=== PATIENT | male | born 1975 | race Caucasian/White ===

== ENCOUNTER 2019-02-16 00:54 | Emergency (ER) | payer SELFPAY ==
[2019-02-16] MEDS: SODIUM CHLORIDE 0.9% 1,000 ML 1000 ML IV (01:01)
[2019-02-16 01:17] LABS: Add Manual Diff / Slide Review NO; Basophils Absolute Auto 100 /uL (0-100); Basophils Percent Auto 0.6 % (0-2); Eosinophils Absolute Auto 400 /uL (0-450); Eosinophils Percent Auto 2.8 % (2-4); Hemoglobin 16.1 g/dL (13.5-17.5); Lymphocytes Absolute Auto 7600 /uL (1100-4500); Lymphocytes Percent Auto 48.9 % (25-40); Mean Corpuscular Hemoglobin 34.1 PG (26-34); Mean Corpuscular Volume 97.4 fL (80-100); Monocytes Absolute Auto 1300 /uL (0-900); Monocytes Percent Auto 8.6 % (3-14); Neutrophils Absolute Auto 6100 /uL (1500-7000); Neutrophils Percent Auto 39.1 % (50-75); Platelet Count 294 X10^3/uL (150-400); Red Blood Cell Count 4.73 X10^6/uL (4.5-5.9); Red Cell Distribution Width 14.2 % (11.6-14.8); White Blood Cell Count 15.5 X10^3/uL (4.5-11.0)
--- NOTE | 2019-02-16 01:30 | ED_ITS ---
HPI - General Adult General Chief complaint: Altered Mental Status Stated complaint: ETOH, confusion Time Seen by Provider: 02/16/19 00:58 Source: EMS Mode of arrival: EMS Limitations: other (Intoxication) History of Present Illness HPI narrative: Patient is a 43-year-old male brought in by EMS after the police found the patient laying in the grass along the road. As reported by EMS that the patient had been drinking this evening. They stated that the report was that his friends dropped him off in that he late in the grass. There is no signs of trauma. Patient unable to provide any HPI review of systems Related Data Home Medications Medication Instructions Recorded Confirmed atorvastatin 40 mg PO HS #0 06/16/16 clopidogrel 75 mg PO QDAY #0 06/16/16 nicotine 14 mg TOPICAL QDAYP PRN #0 06/16/16 Previous Rx's Medication Instructions Recorded epinephrine [EpiPen 2-Mahendra] 0.3 mg IM X1 PRN #1 pkg 09/08/16 lisinopril 5 mg PO BID #60 tab 02/27/17 nitroglycerin 0.4 mg sublingual 0.4 mg SUBLINGUAL Q5M PRN #30 tab 09/03/17 tablet aspirin 81 mg chewable tablet 81 mg PO QDAY #90 tab 01/01/18 lisinopril 5 mg tablet 5 mg PO BID #180 tab 01/01/18 metoprolol tartrate 50 mg tablet 50 mg PO BID #180 tab 01/01/18 Allergies Allergy/AdvReac Type Severity Reaction Status Date / Time codeine [CODEINE] AdvReac Mild ITCHING Unverified 07/05/17 11:44 Review of Systems Review of Systems ROS Unobtainable: Unobtainable due to mental status/LOC Patient History Medical History Acute bronchitis (Inactive) Acute [place] (Inactive) Bilateral otitis media (Inactive) Coronary artery disease involving [place] coronary artery of [place] heart without angina pectoris (06/16/16) Cough due to bronchospasm (Inactive) Excessive daytime sleepiness (06/16/16) History of myocardial infarction (06/16/16) 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) Hypertension (Inactive) Nocturnal hypoxia (06/16/16) Family History (Updated 02/05/16 @ 00:00 by Conversion Provider) Grandmother Age: 54 Breast cancer Social History marital status: unknown Exam Initial Vital Signs Initial Vital Signs: Vital Signs Pulse Rate 96 H 02/16/19 03:14 Respiratory Rate 18 02/16/19 03:14 Blood Pressure 128/61 02/16/19 03:14 Pulse Oximetry 97 02/16/19 03:14 Const General: No acute distress Orientation: other (Intoxicated) Limitations: altered mental status (Intoxicated) HENMT Head: normal to inspection and normocephalic Resp Effort & Inspection: normal respiratory effort Auscultation: clear to auscultation bilaterally Cardio Rate: regular rate Rhythm: regular rhythm GI Inspection: non-distended Palpation: soft Other: Normal external male genitalia Skin Other: No signs of trauma, healed surgical scar midline ABS Neuro Other: Would not follow commands however does withdrawal to pain Extrem General: capillary refill normal Psych Appearance: well kempt Scores GCS [place] coma scale eye opening: None [place] coma scale verbal response: Sounds [place] coma scale motor response: Localising [place] coma scale total score: 8 Course Orders Ordered: ED Orders 02/16/19 01:00 Complete Blood Count AUTO DIFF Stat Comprehensive Metabolic Panel Stat Ethanol (ETOH) Stat Lipase Stat Discontinued Medications Sodium Chloride (Normal Saline 0.9%) 1,000 mls @ 1,000 mls/hr IV BOLUS ONE Stop: 02/16/19 01:58 Last Infusion: 02/16/19 02:25 Dose: 1,000 mls/hr Documented by: Admin: 02/16/19 01:01 Dose: 1,000 mls/hr Documented by: ABE Vital Signs Vital signs: Vital Signs - 8 hr 02/16/19 03:14 02/16/19 03:24 02/16/19 06:00 Temperature 97.9 F Pulse Rate 96 H 96 H 94 H Respiratory Rate 18 18 21 Blood Pressure 121/60 Blood Pressure [Left Arm] 128/61 110/56 L Pulse Oximetry 97 97 97 Medical Decision Making Lab Data Lab results reviewed: Yes I reviewed the patient's lab results. Result diagrams: 02/16/19 01:00 02/16/19 01:00 Labs: Lab Results 02/16/19 02/16/19 Range/Units 01:00 01:00 WBC 15.5 H (4.5-11.0) X10^3/uL RBC 4.73 (4.5-5.9) X10^6/uL Hgb 16.1 (13.5-17.5) g/dL Hct 46.0 (41-53) % MCV 97.4 (80-100) fL MCH 34.1 H (26-34) PG MCHC 35.0 (30-36) % RDW 14.2 (11.6-14.8) % Plt Count 294 (150-400) X10^3/uL Neut % (Auto) 39.1 L (50-75) % Lymph % (Auto) 48.9 H (25-40) % [place] % (Auto) 8.6 (3-14) % Eos % (Auto) 2.8 (2-4) % Baso % (Auto) 0.6 (0-2) % Neut # (Auto) 6100 (7422-1525) /uL Lymph # (Auto) 7600 H (1376-4303) /uL [place] # (Auto) 1300 H (0-900) /uL Eos # (Auto) 400 (0-450) /uL Baso # (Auto) 100 (0-100) /uL Sodium 144 (137-145) mmol/L Potassium 4.5 (3.4-5.1) mmol/L Chloride 107 (98-107) mmol/L Carbon Dioxide 23 (22-32) mmol/L BUN 13 (9-20) mg/dL Creatinine 0.80 (0.66-1.25) mg/dL Estimated GFR > 60.0 (>60) mL/min BUN/Creatinine Ratio 16.3 (6-22) Glucose 126 H (70-100) mg/dL Calcium 9.4 (8.4-10.2) mg/dL Total Bilirubin 0.6 (0.2-1.3) mg/dL AST 136 H (17-59) IU/L ALT 185 H (<50) IU/L Alkaline Phosphatase 86 (38-126) U/L Total Protein 7.7 (6.3-8.2) g/dL Albumin 4.4 (3.5-5.0) g/dL Globulin 3.3 (1.7-4.1) g/dL Albumin/Globulin Ratio 1.3 (1.0-2.8) Lipase 378 H (23-300) U/L Ethyl Alcohol 340 H ( - 10) mg/dL MDM Narrative Medical decision making narrative: Patient is maintaining his airway. There is no signs of trauma. Does have an elevated alcohol level. This is consistent with his history. Will hold on any radiologic studies for now. Does have a leukocytosis however this could be secondary to his drinking this evening. Patient was observed here in the emergency department until he woke up. He was then alert and oriented. States it does not remember how he got to the emergency department. He is not in any pain. He did admit to drinking alcohol last evening. Patient was able to ambulate without any problems. He was informed that he should not drive. He was discharged home in a cab. Discharge Plan Departure Patient Disposition: Home Clinical Impression: Alcoholic intoxication Qualifiers: Complication of substance-induced condition: with unspecified complication Qualified Code(s): F10.929 - Alcohol use, unspecified with intoxication, unspecified Discharge Date/Time: 02/16/19 06:26 Instructions: DI for Alcohol Abuse Activity Restrictions/Additional Instructions: No driving for the next 24 hours or in the future if you partake in intoxicating substances. Call your primary provider for follow-up. Return to the emergency department for any new or worsening symptoms Prescriptions: No Action atorvastatin 40 MG tablet 40 mg PO HS Qty: 0 RF: 0 clopidogrel 75 MG tablet 75 mg PO QDAY Qty: 0 RF: 0 nicotine 14 MG patch 24 hour 14 mg Topical QDAYP PRNQty: 0 RF: 0 epinephrine [EpiPen 2-Mahendra] 0.3 MG/0.3 ML auto-injector 0.3 mg IM X1 PRNQty: 1 RF: 2 lisinopril 5 MG tablet 5 mg PO BID Qty: 60 RF: 0 nitroglycerin [Nitrostat] 0.4 mg tablet, sublingual 0.4 mg Sublingual Q5M PRN (Reason: chest pain) Qty: 30 RF: 2 metoprolol tartrate 50 mg tablet 50 mg PO BID Qty: 180 RF: 0 lisinopril 5 mg tablet 5 mg PO BID Qty: 180 RF: 0 aspirin 81 mg tablet,chewable 81 mg PO QDAY Qty: 90 RF: 3 Referrals: Ulises Weaver MD [Primary Care Provider] -
[2019-02-16 01:34] LABS: Alanine Aminotransferase 185 IU/L (<50); Albumin 4.4 g/dL (3.5-5.0); Albumin Globulin Ratio 1.3 (1.0-2.8); Alkaline Phosphatase 86 U/L (38-126); BUN Creatinine Ratio 16.3 (6-22); Bilirubin Total 0.6 mg/dL (0.2-1.3); Blood Urea Nitrogen 13 mg/dL (9-20); Calcium 9.4 mg/dL (8.4-10.2); Carbon Dioxide 23 mmol/L (22-32); Chloride 107 mmol/L (98-107); Estimated Glomerular Filt Rate > 60.0 mL/min (>60); Globulin 3.3 g/dL (1.7-4.1); Glucose 126 mg/dL (70-100); HEMOLYSIS 56 (0-50); Lipase 378 U/L (23-300); Sodium 144 mmol/L (137-145); Total Protein 7.7 g/dL (6.3-8.2)
[2019-02-16 01:35] LABS: Potassium 4.5 mmol/L (3.4-5.1)
[2019-02-16 01:36] LABS: Aspartate Aminotransferase 136 IU/L (17-59)
[2019-02-16 01:42] LABS: Ethanol (ETOH) 340 mg/dL
[2019-02-16 03:14] VITALS: BP 128/61; PULSE 96; RESP 18; O2SAT 97
[2019-02-16 03:24] VITALS: BP 121/60; PULSE 96; RESP 18; TEMP 36.6; O2SAT 97
[2019-02-16 06:00] VITALS: BP 110/56; PULSE 94; RESP 21; O2SAT 97
== END 2019-02-16 06:26 | disposition home or self-care (01) ==
PROVIDERS: Emergency Provider Emergency Medicine; PCP Family Medicine
DX: F10.929 Alcohol use, unspecified with intoxication, unspecified (principal)
CPT/HCPCS: 36415; 80053; 80320; 83690; 85025; 96360; 99283; 99284

== ENCOUNTER 2019-09-04 23:19 | Emergency (ER) | payer OTHER, SELFPAY ==
[2019-09-04 23:15] VITALS: BP 90/53; PULSE 97; RESP 26; TEMP 36; O2SAT 88; BMI 45.6
--- NOTE | 2019-09-04 23:35 | ED.GENADULT ---
HPI - General Adult General Chief complaint: Toxicology Problem Stated complaint: ETOH Time Seen by Provider: 09/04/19 23:35 History of Present Illness HPI narrative: 44-year-old gentleman with a history of alcohol use disorder, STEMI in 2017 with stent placement, hyperlipidemia, hypertension presents with what he believes is acute alcohol withdrawal. Typically drinks a 5th of hard liquor every other day. His last drink was 4 days ago. He has no tremor, no head fullness, light or sound sensitivity, no hallucinations no abdominal pain describes no cough but describe significant chills with dripping sweats. No chest pain, shortness of breath, mild loose stools and no significant vomiting. He has no headache, no neck pain and no complaints of skin changes rashes or abscess. No dysuria or flank pain. On initial presentation he is tachycardic and hypotensive with the CIWA score of 0. He looks acutely ill and is quite pale and does not appear to be in acute alcohol withdrawal or delirium tremens. With no fever or obvious source of infection, I am concerned for sepsis however will wait to be in to see blood back before beginning antibiotics. Fluid resuscitation is initiated. He is complaining of no nausea or pain. Related Data Home Medications Medication Instructions Recorded Confirmed atorvastatin 40 mg PO HS #0 06/16/16 clopidogrel 75 mg PO QDAY #0 06/16/16 nicotine 14 mg TOPICAL QDAYP PRN #0 06/16/16 Previous Rx's Medication Instructions Recorded epinephrine [EpiPen 2-Mahendra] 0.3 mg IM X1 PRN #1 pkg 09/08/16 lisinopril 5 mg PO BID #60 tab 02/27/17 nitroglycerin 0.4 mg sublingual 0.4 mg SUBLINGUAL Q5M PRN #30 tab 09/03/17 tablet aspirin 81 mg chewable tablet 81 mg PO QDAY #90 tab 01/01/18 lisinopril 5 mg tablet 5 mg PO BID #180 tab 01/01/18 metoprolol tartrate 50 mg tablet 50 mg PO BID #180 tab 01/01/18 Allergies Allergy/AdvReac Type Severity Reaction Status Date / Time codeine [CODEINE] AdvReac Mild ITCHING Unverified 07/05/17 11:44 Review of Systems Review of Systems ROS Unobtainable: All systems reviewed & are unremarkable except as noted in HPI and below Patient History Medical History (Updated 09/05/19 @ 04:29 by Amada Garcia MD) Acute bronchitis (Inactive) Acute [place] (Inactive) Alcohol use disorder (Acute) Bilateral otitis media (Inactive) Coronary artery disease involving [place] coronary artery of [place] heart without angina pectoris (06/16/16) Cough due to bronchospasm (Inactive) Excessive daytime sleepiness (06/16/16) History of myocardial infarction (06/16/16) 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) Hypertension (Inactive) Nocturnal hypoxia (06/16/16) Family History (Updated 02/05/16 @ 00:00 by Conversion Provider) Grandmother Age: 54 Breast cancer Social History marital status: unknown Smoking Status: Current every day smoker Exam Narrative Exam Narrative: General: Ill-appearing gentleman, pale. Able to give a complete and coherent history. HEENT: Moist mucous membranes, normal sclera with reactive pupils, pale lips Neck: No JVD, supple Respiratory: Lungs are clear to auscultation, no wheezing no rales no rhonchi. Full and symmetrical air movement Cardiac: Tachycardic but regular, no murmurs no bruits Abdomen: Soft nontender good bowel tones, no flank pain Skin: Warm and dry, no rashes, no abscesses, no erythema Neurologic: Grossly neurologically intact with no obvious asymmetries or abnormalities, no tremor, no visual or auditory hallucination Extremities: No trauma, well perfused Psych: Cooperative, appropriate insight and affect Initial Vital Signs Initial Vital Signs: Vital Signs Temperature 96.8 F L 09/04/19 23:15 Pulse Rate 97 H 09/04/19 23:15 Respiratory Rate 26 H 09/04/19 23:15 Blood Pressure 90/53 L 09/04/19 23:15 Pulse Oximetry 88 L 09/04/19 23:15 Procedures Central Line Placement Right IJ: Time Out Performed: Yes Patient Placed on Monitor/Pulse Ox: Yes Prep: mask, gown and gloves Central Line Prep: Chlorhexidine scrub Local Anesthetic: lidocaine 1% Amount of anesthesia used (mL): 5 Ultrasound Used for Placement: Yes Central Line Lumen Inserted: triple Post Procedure: sutured in place, good blood return and all ports aspirated, flushed, capped Post Procedure X-Ray: tip of catheter in good position and no pneumothorax seen Patient Tolerated Procedure: Well Complications: none Course Orders Ordered: ED Orders 09/05/19 XR chest 1V Stat 09/05/19 00:07 XR chest 1V Stat Blood Culture Stat Urinalysis and Microscopic Stat EKG-12 Lead Stat 09/05/19 00:25 Complete Blood Count AUTO DIFF Stat Comprehensive Metabolic Panel Stat D Dimer Stat Lactate (Lactic Acid) Stat Lipase Stat Magnesium Stat Procalcitonin Stat Troponin I Stat Type and Screen Stat 09/05/19 02:12 CT angio chest PE protocol Stat 09/05/19 02:30 EKG-12 Lead Stat 09/05/19 03:10 D Dimer Stat Troponin I Stat Heparin Sodium/Dextrose (Heparin Drip) 25,000 unit in 500 mls @ 20 mls/hr IV CONT BIA; Protocol Last Admin: 09/05/19 02:06 Dose: 1,000 units/hr, 20 mls/hr Documented by: SAVANNAH Discontinued Medications Aspirin (Aspirin Chew) 324 mg PO NOW ONE Stop: 09/05/19 01:35 Last Admin: 09/05/19 02:02 Dose: 324 mg Documented by: SAVANNAH Heparin Sodium (Porcine) (Heparin) 7,500 unit IV NOW ONE Stop: 09/05/19 01:35 Last Admin: 09/05/19 02:05 Dose: 7,500 unit Documented by: SAVANNAH Sodium Chloride (Normal Saline 0.9%) 1,000 mls @ 1,000 mls/hr IV BOLUS ONE Stop: 09/05/19 01:05 Last Admin: 09/05/19 02:15 Dose: 1,000 mls/hr Documented by: SAVANNAH Sodium Chloride (Normal Saline 0.9%) 1,000 mls @ 1,000 mls/hr IV BOLUS ONE Stop: 09/05/19 01:06 Last Admin: 09/05/19 00:12 Dose: 1,000 mls/hr Documented by: EVELIN Piperacillin/Tazobactam/Dextrose (Zosyn) 3.375 gm in 50 mls @ 100 mls/hr IV NOW ONE Stop: 09/05/19 02:05 Magnesium Sulfate (Magnesium Sulfate) 2 gm in 50 mls @ 25 mls/hr IV NOW ONE Stop: 09/05/19 03:36 Last Admin: 09/05/19 02:03 Dose: 25 mls/hr Documented by: SAVANNAH Cosigned by: MMCFARL Thiamine HCl (Vitamin B-1) 100 mg IV NOW ONE Stop: 09/05/19 01:38 Last Admin: 09/05/19 02:14 Dose: 100 mg Documented by: SAVANNAH Vital Signs Vital signs: Vital Signs - 8 hr 09/04/19 23:15 09/04/19 23:48 09/05/19 00:55 Temperature 96.8 F L Pulse Rate 97 H 97 H 101 H Respiratory Rate 26 H 25 H 25 H Blood Pressure 90/53 L Blood Pressure [Left Arm] 90/53 L 95/61 Pulse Oximetry 88 L 91 92 09/05/19 01:36 09/05/19 02:25 09/05/19 02:47 Temperature Pulse Rate 103 H 102 H 98 H Respiratory Rate 26 H 25 H 26 H Blood Pressure Blood Pressure [Left Arm] 109/66 104/61 95/64 Pulse Oximetry 94 93 94 09/05/19 03:31 09/05/19 04:01 Temperature Pulse Rate 100 H 96 H Respiratory Rate 25 H Blood Pressure Blood Pressure [Left Arm] 94/67 96/51 L Pulse Oximetry 94 96 Medical Decision Making Medical Records Medical records reviewed: Yes I reviewed the patient's medical records. Lab Data Lab results reviewed: Yes I reviewed the patient's lab results. Lab results narrative: Leukocytosis, renal insufficiency, elevated lactic acid at 2.5 and elevated LFTs troponin slightly elevated at 0.054 D dimer returns positve Result diagrams: 09/05/19 00:25 09/05/19 00:25 Labs: Lab Results 09/05/19 09/05/19 09/05/19 Range/Units 00:25 00:25 00:25 WBC 14.9 H (4.5-11.0) X10^3/uL RBC 4.44 L (4.5-5.9) X10^6/uL Hgb 14.9 (13.5-17.5) g/dL Hct 43.5 (41-53) % MCV 98.0 (80-100) fL MCH 33.5 (26-34) PG MCHC 34.2 (30-36) % RDW 15.0 H (11.6-14.8) % Plt Count 181 (150-400) X10^3/uL Neut % (Auto) 71.7 (50-75) % Lymph % (Auto) 20.8 L (25-40) % [place] % (Auto) 6.8 (3-14) % Eos % (Auto) 0.4 L (2-4) % Baso % (Auto) 0.3 (0-2) % Neut # (Auto) 31979 H (9119-7956) /uL Lymph # (Auto) 3100 (5856-7464) /uL [place] # (Auto) 1000 H (0-900) /uL Eos # (Auto) 100 (0-450) /uL Baso # (Auto) 0 (0-100) /uL D-Dimer (<230) ng/mL Sodium 136 L (137-145) mmol/L Potassium 4.2 (3.4-5.1) mmol/L Chloride 104 (98-107) mmol/L Carbon Dioxide 20 L (22-32) mmol/L BUN 13 (9-20) mg/dL Creatinine 1.59 H (0.66-1.25) mg/dL Estimated GFR 47.5 L (>60) mL/min BUN/Creatinine Ratio 8.2 (6-22) Glucose 171 H (70-100) mg/dL Lactate (0.7-2.1) mmol/L Calcium 9.4 (8.4-10.2) mg/dL Magnesium 1.5 L (1.6-2.3) mg/dL Total Bilirubin 1.3 (0.2-1.3) mg/dL AST 102 H (17-59) IU/L ALT 111 H (<50) IU/L Alkaline Phosphatase 57 (38-126) U/L Troponin I 0.054 H (0.01-0.034) ng/mL Total Protein 6.8 (6.3-8.2) g/dL Albumin 3.5 (3.5-5.0) g/dL Globulin 3.3 (1.7-4.1) g/dL Albumin/Globulin Ratio 1.1 (1.0-2.8) Lipase 141 (23-300) U/L Procalcitonin 0.15 (<0.5) ng/mL Blood Type Antibody Screen 09/05/19 09/05/19 09/05/19 Range/Units 00:25 00:25 00:25 WBC (4.5-11.0) X10^3/uL RBC (4.5-5.9) X10^6/uL Hgb (13.5-17.5) g/dL Hct (41-53) % MCV (80-100) fL MCH (26-34) PG MCHC (30-36) % RDW (11.6-14.8) % Plt Count (150-400) X10^3/uL Neut % (Auto) (50-75) % Lymph % (Auto) (25-40) % [place] % (Auto) (3-14) % Eos % (Auto) (2-4) % Baso % (Auto) (0-2) % Neut # (Auto) (5575-4966) /uL Lymph # (Auto) (8878-2791) /uL [place] # (Auto) (0-900) /uL Eos # (Auto) (0-450) /uL Baso # (Auto) (0-100) /uL D-Dimer 923 H (<230) ng/mL Sodium (137-145) mmol/L Potassium (3.4-5.1) mmol/L Chloride (98-107) mmol/L Carbon Dioxide (22-32) mmol/L BUN (9-20) mg/dL Creatinine (0.66-1.25) mg/dL Estimated GFR (>60) mL/min BUN/Creatinine Ratio (6-22) Glucose (70-100) mg/dL Lactate 2.5 H (0.7-2.1) mmol/L Calcium (8.4-10.2) mg/dL Magnesium (1.6-2.3) mg/dL Total Bilirubin (0.2-1.3) mg/dL AST (17-59) IU/L ALT (<50) IU/L Alkaline Phosphatase (38-126) U/L Troponin I (0.01-0.034) ng/mL Total Protein (6.3-8.2) g/dL Albumin (3.5-5.0) g/dL Globulin (1.7-4.1) g/dL Albumin/Globulin Ratio (1.0-2.8) Lipase (23-300) U/L Procalcitonin (<0.5) ng/mL Blood Type O Positive Antibody Screen Negative 09/05/19 09/05/19 09/05/19 Range/Units 03:10 03:10 03:10 WBC (4.5-11.0) X10^3/uL RBC (4.5-5.9) X10^6/uL Hgb (13.5-17.5) g/dL Hct (41-53) % MCV (80-100) fL MCH (26-34) PG MCHC (30-36) % RDW (11.6-14.8) % Plt Count (150-400) X10^3/uL Neut % (Auto) (50-75) % Lymph % (Auto) (25-40) % [place] % (Auto) (3-14) % Eos % (Auto) (2-4) % Baso % (Auto) (0-2) % Neut # (Auto) (7591-5228) /uL Lymph # (Auto) (5064-0362) /uL [place] # (Auto) (0-900) /uL Eos # (Auto) (0-450) /uL Baso # (Auto) (0-100) /uL D-Dimer 1452 H (<230) ng/mL Sodium (137-145) mmol/L Potassium (3.4-5.1) mmol/L Chloride (98-107) mmol/L Carbon Dioxide (22-32) mmol/L BUN (9-20) mg/dL Creatinine (0.66-1.25) mg/dL Estimated GFR (>60) mL/min BUN/Creatinine Ratio (6-22) Glucose (70-100) mg/dL Lactate 3.4 H (0.7-2.1) mmol/L Calcium (8.4-10.2) mg/dL Magnesium (1.6-2.3) mg/dL Total Bilirubin (0.2-1.3) mg/dL AST (17-59) IU/L ALT (<50) IU/L Alkaline Phosphatase (38-126) U/L Troponin I 0.066 H (0.01-0.034) ng/mL Total Protein (6.3-8.2) g/dL Albumin (3.5-5.0) g/dL Globulin (1.7-4.1) g/dL Albumin/Globulin Ratio (1.0-2.8) Lipase (23-300) U/L Procalcitonin (<0.5) ng/mL Blood Type Antibody Screen Imaging Data Chest x-ray: Radiologist's Impression: No acute infiltrates, slightly generous cardiac silhouette, no effusions, normal mediastinum, no trauma ECG Data Attestation: I personally reviewed and interpreted this ECG as follows: Interpretation: Sinus rhythm at a rate of 99 Rightward axis with normal intervals ST depression inferiorly and nonspecific ST T wave changes anteriorly MDM Narrative Medical decision making narrative: 44-year-old gentleman who a stents a believe presents with acute alcohol withdrawal however clinical exam and labs are not supporting that as his only diagnosis. He states that he has not had fevers but has had soaking sweats with chills and reports that he has been unable to eat or drink. It is possible that he simply significantly dehydrated causing the slight bump in creatinine as well as hypertension and tachycardia. LFTs are elevated but consistent with prior numbers and consistent with his alcohol use disorder. No evidence of pancreatitis. IV Thiamine given. On arrival he was mildly hypoxic but is responding nicely to oxygen per nasal cannula. Blood pressure and heart rate responding to initial fluid resuscitation. Given the hypotension, tachycardia, hypoxia, leukocytosis and increasing lactic acid will add empiric antibiotics in the form of Zosyn with an unknown source of infection (procalcitonin is low arguing against infectious etiology). Does not appear to be a meningitis, pneumonia, intra-abdominal infection or cellulitis. Still waiting for urinalysis Troponin is elevated at 0.054, no chest pain or dyspnea. Possibility of an alcoholic cardiomyopathy and/or NSTEMI due to alcohol withdrawl over last few days. With the elevated troponin and EKG with ST depression inferiorly with nonspecific ST changes anteriorly will add aspirin and heparin drip. Will need troponins trended and echocardiogram. He did have a STEMI in 2017 with stent placement and treatment at [facility] 1:55am Spoke with marina sales and service supervisor at [facility]. PCU bed is available. Will talk with hospitalist. Currently patient continues to improve with fluid resuscitation, blood pressure up to 109/66, much better color. No chest pain. Dr Lomax requests consultation with cardiology and review of EKG prior to accepting patient. 2:00 d- dimer returns positive at 923. PE study is ordered. Pt remains on cardiac protocol heparin. Repeat trop and EKG at 230 340 troponin increasing, lactic acid increasing after 3 L, has pullled out multiple IVs due to restlessness. CT reveals multiple subsegmental pulmonary emboli with likely Will place central line. MAP [address] David , cardiology EKG electronical transmitted for his reveiw. Agrees with concern for ischemia without acute infarct/STEMI. Record review from him: Inferior STEMI in 2017. Will need Echo with hospital stay. 450 Dr Lomax. Accepts transfer. Will not have nursing staff available until 630am. Will return call with room number Additional Information: Case in summary 44-year-old gentleman presents initially to the emergency room complaining of feeling unwell presumably secondary to acute alcohol withdrawal, last drink 4 days ago. Initially hypotensive tachycardic with no signs of alcohol withdrawal. Initial labs returning with elevated lactate and elevated white blood cell count and increased creatinine. LFTs increased but less than previously presumably secondary to his alcohol intake.. Fluid resuscitation and antibiotics started with initial presumed diagnosis of sepsis unknown source. Labs then revealed elevated troponin with an EKG showing some minor inferior ST depression and flipped T-waves anteriorly without an acute STEMI. Aspirin given and heparin started. Continued fluid resuscitation with systolic blood pressures in the low 90s, maps in the mid 60s. D-dimer then returns elevated and CT scan of the chest reveals multiple subsegmental bilateral pulmonary emboli likely with pulmonary infarcts. Heparin protocol changed from cardiac to pulmonary embolism rates. Central line is placed for better venous access. Patient continues to mentate appropriately without signs of acute alcohol withdrawal. Repeat lab work at this point reveals lactate increasing despite aggressive fluid resuscitation. May be secondary to the pulmonary infarcts. Antibiotics are continuing. Troponin is also increasing 2.0 6 6. Case is reviewed with cardiology who recommends continued care and echo to be reviewed tomorrow. Patient remains in stable but guarded position and is safe for ACLS transfer to [facility] when CCU bed becomes available within the next 1-2 hours. Critical Care Time Critical Care Time Critical Care Time: Yes Total Critical Care Time: 42 Attestation: Critical care time is separate from other billable procedures. This critical care time includes consultation with family and other consulting doctors, review of records, and interpretation of data from labs, EKGs and imaging as well as managements of cardiovascular collapse, pulmonary emboli, renal dysfunction. Discharge Plan Departure Patient Disposition: [facility] Clinical Impression: Pulmonary embolism and infarction, Non-ST elevation (NSTEMI) myocardial infarction, Alcohol use disorder, Hypomagnesemia, Acute renal insufficiency, Acute hypotension Prescriptions: No Action atorvastatin 40 MG tablet 40 mg PO HS Qty: 0 RF: 0 clopidogrel 75 MG tablet 75 mg PO QDAY Qty: 0 RF: 0 nicotine 14 MG patch 24 hour 14 mg Topical QDAYP PRNQty: 0 RF: 0 epinephrine [EpiPen 2-Mahendra] 0.3 MG/0.3 ML auto-injector 0.3 mg IM X1 PRNQty: 1 RF: 2 lisinopril 5 MG tablet 5 mg PO BID Qty: 60 RF: 0 nitroglycerin [Nitrostat] 0.4 mg tablet, sublingual 0.4 mg Sublingual Q5M PRN (Reason: chest pain) Qty: 30 RF: 2 metoprolol tartrate 50 mg tablet 50 mg PO BID Qty: 180 RF: 0 lisinopril 5 mg tablet 5 mg PO BID Qty: 180 RF: 0 aspirin 81 mg tablet,chewable 81 mg PO QDAY Qty: 90 RF: 3 Referrals: Ulises Weaver MD [Primary Care Provider] -
--- NOTE | 2019-09-04 23:45 | PC.NURSE ---
EMS IV infiltrated when changing pt. I removed IV and started a new line.
[2019-09-04 23:48] VITALS: BP 90/53; PULSE 97; RESP 25; O2SAT 91
[2019-09-05] VITALS (9 sets, daily range): BP systolic 92–109; BP diastolic 50–67; PULSE 96–103; RESP 25–28; O2SAT 90–96
--- NOTE | 2019-09-05 | DI.RAD.S_ITS ---
PROCEDURE: XR CHEST 1V INDICATIONS: CENTRAL LINE PLACEMENT TECHNIQUE: One view of the chest was acquired. COMPARISON: [facility], , XR CHEST 1V, 09/05/2019, 0:31. [facility], , CHEST 1 VIEW, 02/27/2017, 7:48. FINDINGS: Surgical changes and devices: Right internal jugular central line has been placed without pneumothorax, with tip in the distal SVC.. Lungs and pleura: Lungs are difficult to accurately assess due to reduced inspiratory volume but no definite pneumonia is found.. No pleural effusions or pneumothorax. Mediastinum: Mediastinal contours appear normal. Heart size is normal. Bones and chest wall: No suspicious bony lesions. Overlying soft tissues appear unremarkable. IMPRESSION: Reduced inspiratory volume, no pneumothorax, central line placement with tip in the distal SVC. Dictated by: Isai Foster M.D. on 09/05/2019 at 8:53 Approved by: Isai Foster M.D. on 09/05/2019 at 8:54
--- NOTE | 2019-09-05 00:07 | DI.RAD.S_ITS ---
PROCEDURE: XR CHEST 1V INDICATIONS: hypotension TECHNIQUE: One view of the chest was acquired. COMPARISON: [facility], CHEST 1 VIEW, 02/27/2017, 7:48. [facility], CHEST 2 VIEW, 06/01/2015, 13:54. FINDINGS: Surgical changes and devices: None. Lungs and pleura: Lungs are clearconsidered reduced inspiration. No pleural effusions or pneumothorax. Mediastinum: Mediastinal contours appear normal. Heart size is normal. Bones and chest wall: No suspicious bony lesions. Overlying soft tissues appear unremarkable. IMPRESSION: Reduced inspiration. Dictated by: Isai Foster M.D. on 09/05/2019 at 8:16 Approved by: Isai Foster M.D. on 09/05/2019 at 8:17
[2019-09-05] MEDS: SODIUM CHLORIDE 0.9% 1,000 ML 1000 ML IV ×2 (00:12→02:15)
[2019-09-05 01:01] LABS: Add Manual Diff / Slide Review NO; Basophils Absolute Auto 0 /uL (0-100); Basophils Percent Auto 0.3 % (0-2); Eosinophils Absolute Auto 100 /uL (0-450); Eosinophils Percent Auto 0.4 % (2-4); Hematocrit 43.5 % (41-53); Hemoglobin 14.9 g/dL (13.5-17.5); Lymphocytes Absolute Auto 3100 /uL (1100-4500); Lymphocytes Percent Auto 20.8 % (25-40); Mean Corpuscular HGB Conc 34.2 % (30-36); Mean Corpuscular Hemoglobin 33.5 PG (26-34); Monocytes Absolute Auto 1000 /uL (0-900); Monocytes Percent Auto 6.8 % (3-14); Neutrophils Absolute Auto 10700 /uL (1500-7000); Neutrophils Percent Auto 71.7 % (50-75); Platelet Count 181 X10^3/uL (150-400); Red Blood Cell Count 4.44 X10^6/uL (4.5-5.9); White Blood Cell Count 14.9 X10^3/uL (4.5-11.0)
[2019-09-05 01:06] LABS: Lactate (Lactic Acid) 2.5 mmol/L (0.7-2.1)
[2019-09-05 01:12] LABS: Alanine Aminotransferase 111 IU/L (<50); Albumin 3.5 g/dL (3.5-5.0); Albumin Globulin Ratio 1.1 (1.0-2.8); Alkaline Phosphatase 57 U/L (38-126); Aspartate Aminotransferase 102 IU/L (17-59); BUN Creatinine Ratio 8.2 (6-22); Bilirubin Total 1.3 mg/dL (0.2-1.3); Blood Urea Nitrogen 13 mg/dL (9-20); Calcium 9.4 mg/dL (8.4-10.2); Carbon Dioxide 20 mmol/L (22-32); Chloride 104 mmol/L (98-107); Estimated Glomerular Filt Rate 47.5 mL/min (>60); Globulin 3.3 g/dL (1.7-4.1); Glucose 171 mg/dL (70-100); HEMOLYSIS < 15 (0-50); Lipase 141 U/L (23-300); Magnesium 1.5 mg/dL (1.6-2.3); Potassium 4.2 mmol/L (3.4-5.1); Sodium 136 mmol/L (137-145); Total Protein 6.8 g/dL (6.3-8.2)
[2019-09-05 01:23] LABS: Troponin I 0.054 ng/mL (0.01-0.034)
[2019-09-05 01:28] LABS: Procalcitonin 0.15 ng/mL (<0.5)
[2019-09-05] MEDS: ASPIRIN 81 MG CHEW TAB 324 MG PO (02:02)
[2019-09-05 02:03] LABS: D Dimer 923 ng/mL (<230)
[2019-09-05] MEDS: MAGNESIUM SULFATE 2 GM/50 ML PIGGYBACK IV (02:03)
[2019-09-05] MEDS: HEPARIN 5,000 UNIT/ML VIAL 7500 UNIT IV (02:05)
[2019-09-05] MEDS: HEPARIN DRIP 25,000 UNIT/500 ML IV.SOLN 20 UNIT IV (02:06)
--- NOTE | 2019-09-05 02:12 | DI.CT.S_ITS ---
PROCEDURE: CT ANGIO CHEST PE PROTOCOL INDICATIONS: elevated d dimer TECHNIQUE: After the administration of intravenous contrast, 2 mm thick sections acquired from the pulmonary apices to the posterior costophrenic angles. 3-dimensional maximum intensity projection (MIP) coronal and sagittal reformats were then acquired through the thorax. For radiation dose reduction, the following was used: automated exposure control, adjustment of mA and/or kV according to patient size. COMPARISON: None. FINDINGS: Image quality: Excellent. Pulmonary arteries: Pulmonary arteries are mildly prominent in size centrally, and demonstrate definite bilateral intraluminal filling defects there both occlusive and nonocclusive diagnostic of central pulmonary embolism. These are scattered within the upper and lower lobe pulmonary arteries, and associated with mild patchy alveolar airspace disease best seen at each lung base, left greater than right, potentially a manifestation of peripheral pulmonary infarctions or ischemic injury. Lungs and pleura: Lungs are free of mass. No pleural effusions or pneumothorax. Central and peripheral airways are patent. Mediastinum: Heart size is normal, without pericardial effusion. No mediastinal or hilar adenopathy. Thoracic aorta is normal in caliber and enhancement. Esophagus is normal in caliber, without hiatal hernia. Bones and chest wall: No suspicious bony lesions. Ribs and thoracic spine appear intact throughout. Thyroid gland appears normal where well seen. No axillary or supraclavicular adenopathy. Abdomen: Visualized upper abdominal solid organs appear normal in the early arterial phase of enhancement except for absence of the spleen in the setting of what appears to be old left-sided lower rib fractures. This may indicate prior splenectomy for trauma.. IMPRESSION: Bilateral pulmonary emboli are present, segmental and subsegmental, occlusive and nonocclusive (the majority of which are nonocclusive). Right heart enlargement is not associated. Central pulmonary arteries are mildly prominent in size. A small degree of peripheral patchy alveolar airspace disease is present likely reflecting sequela of focal ischemic injury to the lung parenchyma from far peripheral pulmonary emboli in this clinical circumstance. Prior splenectomy, likely from trauma given the pattern of what appears to be old healed left lower rib fractures posteriorly. Note: These findings are concordant with the preliminary interpretation. Dictated by: Isai Foster M.D. on 09/05/2019 at 8:33 Approved by: Isai Foster M.D. on 09/05/2019 at 8:46
[2019-09-05] MEDS: THIAMINE 200 MG/2 ML VIAL 100 MG IV (02:14)
[2019-09-05 02:56] LABS: Reflexed Lactate in 2 Hours Y
[2019-09-05 03:33] LABS: Lactate 2HR (Lactic Acid Rflx) 3.4 mmol/L (0.7-2.1)
[2019-09-05 03:39] LABS: D Dimer 1452 ng/mL (<230)
[2019-09-05 03:45] LABS: Troponin I 0.066 ng/mL (0.01-0.034)
--- NOTE | 2019-09-05 04:30 | PC.NURSE ---
After moving him to room #1,DR Garcia inserted right subclavian central line with sterile technique,he tolerated it well.
[2019-09-05 05:10] LABS: INR 1.3 (0.9-1.3); Prothrombin Time 15.2 SECONDS (10.1-12.7)
[2019-09-05] MEDS: PIPERACILLIN-TAZO 3.375 GM/50 ML FROZ.PIGGY IV (05:14)
[2019-09-05 05:44] LABS: PTT Partial Thromboplastin Tim 115 SECONDS (26.4-36.2)
--- NOTE | 2019-09-05 06:21 | PC.NURSE ---
He left to [facility] pain free with his heparin drip infusing at 900 ml per hour per DR Newberry verbal order.
--- NOTE | 2019-10-01 18:48 | PC.NURSE ---
on 09/05/19 zosyn 50 ml infused at 0205,heparin gtt infused 85 ml and the rest was infusing when transferred at 20 ml per hour and 2 liters normal saline infused on at 0105 and one at 0330.
--- NOTE | 2019-10-01 21:41 | PC.NURSE ---
On 09/05/2019 2 grams mag sulfate in 50 ml infused at 0420.
== END 2019-09-05 06:00 | disposition short-term general hospital (02) ==
PROVIDERS: Emergency Provider Emergency Medicine; PCP Family Medicine
DX: I21.4 Non-ST elevation (NSTEMI) myocardial infarction (principal); I26.99 Other pulmonary embolism without acute cor pulmonale; N28.9 Disorder of kidney and ureter, unspecified; E83.42 Hypomagnesemia; I95.9 Hypotension, unspecified; F10.10 Alcohol abuse, uncomplicated; Z95.5 Presence of coronary angioplasty implant and graft; E78.5 Hyperlipidemia, unspecified; I10 Essential (primary) hypertension; R79.89 Other specified abnormal findings of blood chemistry; R00.0 Tachycardia, unspecified; R09.02 Hypoxemia
CPT/HCPCS: 36415; 36573; 71045; 71275; 80053; 83605; 83690; 83735; 84145; 84484; 85025; 85379; 85610; 85730; 86850; 86900; 86901; 93005; 96361; 96365; 96366; 96368; 96375; 99285; 99291; 99292; J1644; J2543; Q9967

== ENCOUNTER 2020-07-27 16:51 | Emergency (ER) | payer OTHER, MEDICAID, SELFPAY ==
[2020-07-27 17:00] VITALS: BP 200/107; PULSE 89; RESP 20; TEMP 37.4; O2SAT 99
--- NOTE | 2020-07-27 17:15 | ED_ITS ---
HPI - Extremity Injury (Lower) General Chief Complaint: Extremity Injury, Lower Stated Complaint: LEFT KNEE SWELLING TOWARDS FOOT Time Seen by Provider: 07/27/20 17:15 Source: patient Mode of arrival: Ambulatory Limitations: no limitations History of Present Illness HPI Narrative: This is a 45-year-old male comes in with complaint of left knee swelling after falling directly onto his left don. Patient was riding on his boat and fell directly onto a 2 in metal bar with his knee flexed. Patient states he developed bruising over the next day. Patient states he has been able to ambulate without much issue. He states that he had significant swelling initially which is improved. It sometimes increases during the day when he is walking around lab but always improves in the evening. Patient has noted bruisi ng which has started to extend down towards the foot. Patient denies any numbness, tingling or weakness. He denies any other injuries. He is on Eliquis for prior pulmonary emboli. Patient also takes medication for hypertension, dyslipidemia and prior NC. patient states they are still working on adjusting his blood pressure medications. Related Data Home Medications Medication Instructions Recorded Confirmed atorvastatin 40 mg PO HS #0 06/16/16 clopidogrel 75 mg PO QDAY #0 06/16/16 nicotine 14 mg TOPICAL QDAYP PRN #0 06/16/16 Previous Rx's Medication Instructions Recorded epinephrine [EpiPen 2-Mahendra] 0.3 mg IM X1 PRN #1 pkg 09/08/16 lisinopril 5 mg PO BID #60 tab 02/27/17 nitroglycerin 0.4 mg sublingual 0.4 mg SUBLINGUAL Q5M PRN #30 tab 09/03/17 tablet aspirin 81 mg chewable tablet 81 mg PO QDAY #90 tab 01/01/18 lisinopril 5 mg tablet 5 mg PO BID #180 tab 01/01/18 metoprolol tartrate 50 mg tablet 50 mg PO BID #180 tab 01/01/18 cephalexin 500 mg PO Q6H 7 Days #28 cap 07/27/20 Allergies Allergy/AdvReac Type Severity Reaction Status Date / Time codeine [CODEINE] AdvReac Mild ITCHING Unverified 07/05/17 11:44 Review of Systems Review of Systems ROS Unobtainable: All systems reviewed & are unremarkable except as noted in HPI and below Patient History Medical History Acute bronchitis Acute NC Alcohol use disorder Bilateral otitis media Coronary artery disease involving [place] coronary artery of [place] heart without angina pectoris (06/16/16) Cough due to bronchospasm Excessive daytime sleepiness (06/16/16) History of myocardial infarction (06/16/16) 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) Hypertension Nocturnal hypoxia (06/16/16) Family History (Updated 02/05/16 @ 00:00 by Conversion Provider) Grandmother Age: 55 Breast cancer Social History marital status: unknown Smoking Status: Current every day smoker Smoking Status: Current every day smoker alcohol intake frequency: 3 or more drinks per day Substance Use Type: does not use Exam Narrative Exam Narrative: GENERAL: Alert and oriented x three, well-nourished male in mild distress. HEENT: Head normocephalic, atraumatic, EOMI, pupils reactive, face symmetric, moist mucous membranes NECK: Supple, full range of motion CARDIOVASCULAR: Regular rate and rhythm without murmurs, rubs or gallops. RESPIRATORY: Breath sounds equal bilaterally, no wheezes rales or rhonchi. ABDOMEN: Soft, nontender. Normoactive bowel sounds all 4 quadrants. No guarding or rebound, rigidity, no mass EXTREMITIES: Normal range of motion, no clubbing. Mild edema of the left knee in comparison to the right as well as some swelling down the leg. Patient also has some ecchymosis just distal to the knee and running down to the foot. Patient has no bony tenderness throughout examination. He does have a small 3x4 area of warmth, erythema adjacent to the area of abrasion of the proximal anterior leg. Abrasion to be scabbed with no drainage. Neurovascularly intact. Normal sensation. 2+ dorsalis pedis. NEUROLOGICAL: Cranial nerves II through XII grossly intact. Moving all extremities. Normal gait. SKIN: Warm, dry, no petechiae, no rashes or lesions otherwise noted. Initial Vital Signs Initial Vital Signs: Vital Signs Temperature 99.3 F 07/27/20 17:00 Pulse Rate 89 07/27/20 17:00 Respiratory Rate 20 07/27/20 17:00 Blood Pressure 200/107 H 07/27/20 17:00 Pulse Oximetry 99 07/27/20 17:00 Course Orders Ordered: ED Orders 07/27/20 17:20 XR knee LT 3V Stat Reevaluation(s) Time: 17:57 Vital Signs Vital signs: Vital Signs - 8 hr 07/27/20 17:00 07/27/20 18:02 Temperature 99.3 F Pulse Rate 89 81 Respiratory Rate 20 16 Blood Pressure 200/107 H 173/96 H Pulse Oximetry 99 96 MDM - Extremity Injury (Lower) Imaging Data Extremity x-ray #1: My Impression: joint effusion, no fracture. Radiologist's Impression: [address] [id number] ReportSigned Patient: Joshua Huston JMR#: [id number]: [id number]:[id number]/Sex: 45 / MDate of Service: 07/27/20Loc: EDAccession Number: [id number] Procedure: XR knee LT 3V Ordering Provider: Cyndi Rebollar D.O. PROCEDURE: XR KNEE LT 3V INDICATIONS: left knee fall and bruising 1 week ago. TECHNIQUE: 3 views of the knee were acquired. COMPARISON: [facility], , KNEE 3V LEFT, 11/24/2013, 14:09. FINDINGS: Bones: No fractures or dislocations. No suspicious bony lesions. Soft tissues: No joint effusion. No suspicious soft tissue calcifications. IMPRESSION: No visualized acute fracture or dislocation. However, if clinical concern and/or pain persist, short interval imaging followup in 7-10 days is recommended, as occult injury cannot be definitively excluded. Dictated by: Savannah Madrigal M.D. on 07/27/2020 at 18:06 Approved by: Savannah Madrigal M.D. on 07/27/2020 at 18:09 [facility] Narrative Medical decision making narrative: This is a 45-year-old male who had a traumatic injury to his left knee. Patient has a small abrasion and some erythema localized there but he was main concern was that he has bruising that c ontinues down his leg. Patient is able to ambulate with minimal pain. He is on Eliquis secondary to pulmonary emboli on he takes this medication lifelong. Which is likely the cause of his bruising which has traveled down his leg secondary to gravity. Patient does appear to have an effusion in his knee likely secondary to trauma. He does not have any other bony tenderness and his x-ray does not show any fracture. Patient does have a small area of cellulitis adjacent to the abrasion and was started on Keflex orally for 5 days. The joint itself does not appear hot or red. Discharge Plan Departure Patient Disposition: Home Clinical Impression: Traumatic ecchymosis of left lower leg, Joint effusion Cellulitis of leg Qualifiers: Laterality: left Qualified Code(s): L03.116 - Cellulitis of left lower limb Instructions: DI for Hematoma (Bruise) Activity Restrictions/Additional Instructions: Follow up if your symptoms do not continue to improve. Your Xray today does show a joint effusion likely secondary from your fall. If you have worsening or continuing knee pain then you should follow up with your primary care or orthopedic surgery for recheck. Take keflex until gone. Prescription to [facility] in [place]. Please continue home medications as prescribed. Please return for fevers, new worsening leg or lower extremity pain, if you are having any fevers, warmth, increasing redness swelling or increasing bruising over time, any numbness or tingling, any weakness or loss or any new or concerning symptoms. Prescriptions: New cephalexin 500 mg capsule 500 mg PO Q6H 7 Days Qty: 28 RF: 0 No Action atorvastatin 40 MG tablet 40 mg PO HS Qty: 0 RF: 0 clopidogrel 75 MG tablet 75 mg PO QDAY Qty: 0 RF: 0 nicotine 14 MG patch 24 hour 14 mg Topical QDAYP PRNQty: 0 RF: 0 epinephrine [EpiPen 2-Mahendra] 0.3 MG/0.3 ML auto-injector 0.3 mg IM X1 PRNQty: 1 RF: 2 lisinopril 5 MG tablet 5 mg PO BID Qty: 60 RF: 0 nitroglycerin [Nitrostat] 0.4 mg tablet, sublingual 0.4 mg Sublingual Q5M PRN (Reason: chest pain) Qty: 30 RF: 2 metoprolol tartrate 50 mg tablet 50 mg PO BID Qty: 180 RF: 0 lisinopril 5 mg tablet 5 mg PO BID Qty: 180 RF: 0 aspirin 81 mg tablet,chewable 81 mg PO QDAY Qty: 90 RF: 3 Referrals: Ulises Weaver MD [Primary Care Provider] - Doug Frye MD [Physician] -
--- NOTE | 2020-07-27 17:20 | DI.RAD.S_ITS ---
PROCEDURE: XR KNEE LT 3V INDICATIONS: left knee fall and bruising 1 week ago. TECHNIQUE: 3 views of the knee were acquired. COMPARISON: [facility], , KNEE 3V LEFT, 11/24/2013, 14:09. FINDINGS: Bones: No fractures or dislocations. No suspicious bony lesions. Soft tissues: No joint effusion. No suspicious soft tissue calcifications. IMPRESSION: No visualized acute fracture or dislocation. However, if clinical concern and/or pain persist, short interval imaging followup in 7-10 days is recommended, as occult injury cannot be definitively excluded. Dictated by: Savannah Madrigal M.D. on 07/27/2020 at 18:06 Approved by: Savannah Madrigal M.D. on 07/27/2020 at 18:09
[2020-07-27 18:02] VITALS: BP 173/96; PULSE 81; RESP 16; O2SAT 96
== END 2020-07-27 18:02 | disposition home or self-care (01) ==
PROVIDERS: Emergency Provider Emergency Medicine; PCP Family Medicine
DX: L03.116 Cellulitis of left lower limb (principal); M25.462 Effusion, left knee; S80.12XA Contusion of left lower leg, initial encounter
CPT/HCPCS: 73562; 99281; 99283

== ENCOUNTER 2020-12-31 01:37 | Inpatient (IN) | payer BC, OTHER, SELFPAY ==
[2020-12-31] VITALS (22 sets, daily range): BP systolic 129–159; BP diastolic 74–103; PULSE 67–105; RESP 17–20; TEMP 36.1–37.3; O2SAT 92–99; BMI 39.0; BMI 36.3
--- NOTE | 2020-12-31 01:46 | DI.CT.S_ITS ---
PROCEDURE: CT ABDOMEN PELVIS W CON INDICATIONS: severe mid abdomen pain, history of ventral hernias TECHNIQUE: After the administration of intravenous contrast, axial sections acquired from the lung bases to the pubic symphysis. Coronal and sagittal reformats were performed. For radiation dose reduction, the following was used: automated exposure control, adjustment of mA and/or kV according to patient size. COMPARISON: [facility], CT, CHEST ABDOMEN PELVIS WITH CONTRAST, 10/15/2010, 16:32. [facility], CT, CT ANGIO CHEST PE PROTOCOL, 09/05/2019, 2:08. FINDINGS: Image quality: Excellent. Lung bases: Again noted is rounded atelectasis in the left lower lobe posteriorly. No acute infiltrates in the lung bases. Heart: Normal size. Coronary artery calcifications. ABDOMEN: Liver: Unremarkable. Gallbladder: Unremarkable. Biliary ducts: Unremarkable. Pancreas: Unremarkable. Spleen: Surgically absent. Adrenal Glands: Unremarkable. Kidneys and Ureters: Unremarkable. Stomach and Bowel: There is extensive inflammatory change surrounding the duodenum and head and neck and pancreas. Consider peptic ulcer disease versus acute pancreatitis. There are associated reactive. Duodenal and peripancreatic lymph nodes. Peritoneum: No abnormal intraperitoneal fluid. No free air. Ventral Wall: Multiple supraumbilical ventral abdominal wall hernias containing fat. Abdominal Nodes: No retroperitoneal or mesenteric adenopathy by size criteria. Vessels: Aorta and inferior vena cava are normal in size. PELVIS: Pelvic Organs: Unremarkable. Bladder: Unremarkable. Pelvic Nodes: No enlarged lymph nodes. Miscellaneous: No hernias are seen. Bones: No lytic or blastic bony lesions. No compression fractures. Disc bulges at L4-L5 and L5-S1. IMPRESSION: 1. Extensive Evi duodenal inflammatory change and inflammatory change in the region of the pancreatic head neck. Consider peptic ulcer disease versus acute pancreatitis. 2. Prominent surrounding lymph nodes most likely are reactive in nature. 3. Multiple ventral abdominal wall hernias containing fat. Comment: Final report is concordant with preliminary interpretation provided by [facility]. Findings were conveyed to Dr. Ponce by the [facility] radiologist on at 04:06 hours Dictated by: Asael Ziegler M.D. on 12/31/2020 at 8:08 Approved by: Asael Ziegler M.D. on 12/31/2020 at 8:16
[2020-12-31] MEDS: SODIUM CHLORIDE 0.9% 1,000 ML 1000 ML IV ×2 (01:56→16:47)
[2020-12-31] MEDS: ONDANSETRON 4 MG/2 ML INJ IV ×3 (01:56→19:11)
[2020-12-31] MEDS: HYDROMORPHONE 0.5 MG INJ IV ×9 (01:56→22:53)
[2020-12-31 02:02] LABS: Add Manual Diff / Slide Review NO; Basophils Absolute Auto 100 /uL (0-100); Eosinophils Absolute Auto 500 /uL (0-450); Hemoglobin 13.7 g/dL (13.5-17.5); Lymphocytes Absolute Auto 4700 /uL (1100-4500); Lymphocytes Percent Auto 30.8 % (25-40); Mean Corpuscular HGB Conc 33.4 % (30-36); Mean Corpuscular Hemoglobin 31.9 PG (26-34); Mean Corpuscular Volume 95.5 fL (80-100); Monocytes Absolute Auto 1200 /uL (0-900); Neutrophils Absolute Auto 8700 /uL (1500-7000); Neutrophils Percent Auto 57.2 % (50-75); Platelet Count 298 X10^3/uL (150-400); Red Blood Cell Count 4.29 X10^6/uL (4.5-5.9); Red Cell Distribution Width 13.5 % (11.6-14.8); White Blood Cell Count 15.3 X10^3/uL (4.5-11.0)
[2020-12-31 02:13] LABS: Alanine Aminotransferase 70 IU/L (<50); Albumin 4.6 g/dL (3.5-5.0); Albumin Globulin Ratio 1.4 (1.0-2.8); Alkaline Phosphatase 63 U/L (38-126); Aspartate Aminotransferase 89 IU/L (17-59); BUN Creatinine Ratio 14.3 (6-22); Bilirubin Total 0.5 mg/dL (0.2-1.3); Blood Urea Nitrogen 16 mg/dL (9-20); Calcium 10.6 mg/dL (8.4-10.2); Carbon Dioxide 28 mmol/L (22-32); Chloride 100 mmol/L (98-107); Estimated Glomerular Filt Rate > 60.0 mL/min (>60); Globulin 3.4 g/dL (1.7-4.1); Glucose 121 mg/dL (70-100); HEMOLYSIS 16 (0-50); Potassium 3.6 mmol/L (3.4-5.1); Sodium 139 mmol/L (137-145)
[2020-12-31 02:14] LABS: Lactate (Lactic Acid) 2.5 mmol/L (0.7-2.1)
--- NOTE | 2020-12-31 02:17 | ED.ABDPAIN ---
HPI - Abdominal Pain General Chief Complaint: Abdominal Pain Stated Complaint: has hernia, nausea vomiting, pain Time Seen by Provider: 12/31/20 01:39 Source: patient and family Limitations: no limitations History of Present Illness HPI narrative: 45M smoker with history of HTN, hyperlipidemia and extensive bowel surgeries presents with the chief complaint of relatively sudden onset severe epigastric pain without obvious radiation. Worse with motion and improved with rest. Associated with nausea. No fever or chills. He has a large known ventral hernia. He's passing gas and had a BM earlier today. Patient drinks significant amount of alcohol daily Related Data Home Medications Medication Instructions Recorded Confirmed atorvastatin 40 mg tablet 40 mg PO HS #0 06/16/16 clopidogrel 75 mg tablet 75 mg PO QDAY #0 06/16/16 nicotine 14 mg/24 hr daily 14 mg TOPICAL QDAYP PRN #0 06/16/16 transdermal patch Previous Rx's Medication Instructions Recorded epinephrine 0.3 mg/0.3 mL 0.3 mg IM X1 PRN #1 pkg 09/08/16 injection, auto-injector (EpiPen 2-Mahendra) lisinopril 5 mg tablet 5 mg PO BID #60 tab 02/27/17 nitroglycerin 0.4 mg sublingual 0.4 mg SUBLINGUAL Q5M PRN #30 tab 09/03/17 tablet (Nitrostat) aspirin 81 mg chewable tablet 81 mg PO QDAY #90 tab 01/01/18 lisinopril 5 mg tablet 5 mg PO BID #180 tab 01/01/18 metoprolol tartrate 50 mg tablet 50 mg PO BID #180 tab 01/01/18 Allergies Allergy/AdvReac Type Severity Reaction Status Date / Time codeine [CODEINE] AdvReac Mild ITCHING Unverified 07/05/17 11:44 Review of Systems Review of Systems Narrative: GENERAL: Denies chills, fatigue, malaise, fever, sweats. HEENT: Denies sinus pain, ear pain, sore throat, difficulty swallowing, dizziness. RESPIRATORY: Denies dyspnea, cough, wheezing, hemoptysis, sputum. CARDIOVASCULAR: Denies chest pain, palpitations, orthopnea, edema, GASTROINTESTINAL: See HPI : Denies dysuria, frequency, incontinence, hematuria, urinary retention. MUSCULOSKELETAL: denies weakness, joint pain, or bony pain SKIN: Denies rash, skin lesions, or other NEUROLOGIC: Denies weakness, headache, numbness, change in speech, confusion, seizures, incoordination. PSYCHIATRIC: No concerning psychosocial issues. 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 Well-developed patient, in obvious distress. HEAD: Atraumatic. Normocephalic. EYES: Pupils equal round and reactive. Extraocular motions intact. No scleral icterus. No injection or drainage. ENT: Nose without bleeding, purulent drainage. Throat without erythema, tonsillar hypertrophy or exudate. Airway patent. NECK: Trachea midline. Non tender CARDIOVASCULAR: Regular rate and rhythm without murmurs, gallops, or rubs. RESPIRATORY: Clear to auscultation. Breath sounds equal bilaterally. No wheezes, rales, or rhonchi. GASTROINTESTINAL: Abdomen soft, severe tenderness in midline, epigastrum more significant. EXTREMITIES: No edema or joint tenderness. BACK: Nontender without deformity or crepitance. No flank tenderness. NEURO: AOx3. SKIN: No rash or erythema of visible areas Initial Vital Signs Initial Vital Signs: Vital Signs Pulse Rate 83 12/31/20 01:43 Pulse Oximetry 97 12/31/20 01:43 Course Orders Ordered: ED Orders 12/31/20 01:46 CT abdomen pelvis w con Stat 12/31/20 01:55 Complete Blood Count AUTO DIFF Stat Comprehensive Metabolic Panel Stat Lactate (Lactic Acid) Stat Lipase Stat 12/31/20 02:25 COVID19 - ADMIT ([employer] swab/PCR) Stat Lactated Ringer's (Lactated Ringers) 1,000 mls @ 150 mls/hr IV CONT BIA Last Admin: 12/31/20 03:19 Dose: 150 mls/hr Documented by: Discontinued Medications Hydromorphone HCl (Hydromorphone 0.5 Mg Inj) 0.5 mg IV NOW ONE Stop: 12/31/20 01:46 Last Admin: 12/31/20 01:56 Dose: 0.5 mg Documented by: NEETU Hydromorphone HCl (Hydromorphone 0.5 Mg Inj) 0.5 mg IV NOW ONE Stop: 12/31/20 02:20 Last Admin: 12/31/20 02:22 Dose: 0.5 mg Documented by: Hydromorphone HCl (Hydromorphone 1 Mg Inj) 1 mg IV NOW ONE Stop: 12/31/20 03:17 Last Admin: 12/31/20 03:19 Dose: 1 mg Documented by: Hydromorphone HCl (Hydromorphone 0.5 Mg Inj) 0.5 mg IV NOW ONE Stop: 12/31/20 04:27 Last Admin: 12/31/20 04:41 Dose: 0.5 mg Documented by: Sodium Chloride (Normal Saline 0.9%) 1,000 mls @ 1,000 mls/hr IV BOLUS ONE Stop: 12/31/20 02:44 Last Admin: 12/31/20 01:56 Dose: 1,000 mls/hr Documented by: NEETU Ondansetron HCl (Ondansetron 4 Mg/2 Ml Inj) 4 mg IV NOW ONE Stop: 12/31/20 01:46 Last Admin: 12/31/20 01:56 Dose: 4 mg Documented by: NEETU Vital Signs Vital signs: Vital Signs - 8 hr 12/31/20 01:43 12/31/20 01:45 12/31/20 02:00 Temperature 97 F L Pulse Rate 83 67 82 Respiratory Rate 17 Blood Pressure 150/88 H Pulse Oximetry 97 97 98 12/31/20 02:10 12/31/20 02:30 12/31/20 03:00 Temperature Pulse Rate 85 72 85 Respiratory Rate Blood Pressure 140/74 143/77 H Pulse Oximetry 97 97 92 12/31/20 03:02 12/31/20 03:30 12/31/20 04:00 Temperature Pulse Rate 84 82 86 Respiratory Rate Blood Pressure 150/82 H 144/78 H 147/81 H Pulse Oximetry 98 97 97 12/31/20 04:30 Temperature Pulse Rate 83 Respiratory Rate Blood Pressure 143/79 H Pulse Oximetry 94 MDM - Abdominal Pain Lab Data Result diagrams: 12/31/20 01:55 12/31/20 01:55 Labs: Lab Results 12/31/20 12/31/20 12/31/20 Range/Units 01:55 01:55 01:55 WBC 15.3 H (4.5-11.0) X10^3/uL RBC 4.29 L (4.5-5.9) X10^6/uL Hgb 13.7 (13.5-17.5) g/dL Hct 41.0 (41-53) % MCV 95.5 (80-100) fL MCH 31.9 (26-34) PG MCHC 33.4 (30-36) % RDW 13.5 (11.6-14.8) % Plt Count 298 (150-400) X10^3/uL Neut % (Auto) 57.2 (50-75) % Lymph % (Auto) 30.8 (25-40) % [place] % (Auto) 8.0 (3-14) % Eos % (Auto) 3.0 (2-4) % Baso % (Auto) 1.0 (0-2) % Neut # (Auto) 8700 H (6995-4714) /uL Lymph # (Auto) 4700 H (3470-1599) /uL [place] # (Auto) 1200 H (0-900) /uL Eos # (Auto) 500 H (0-450) /uL Baso # (Auto) 100 (0-100) /uL Sodium 139 (137-145) mmol/L Potassium 3.6 (3.4-5.1) mmol/L Chloride 100 (98-107) mmol/L Carbon Dioxide 28 (22-32) mmol/L BUN 16 (9-20) mg/dL Creatinine 1.12 (0.66-1.25) mg/dL Estimated GFR > 60.0 (>60) mL/min BUN/Creatinine Ratio 14.3 (6-22) Glucose 121 H (70-100) mg/dL Lactate 2.5 H (0.7-2.1) mmol/L Calcium 10.6 H (8.4-10.2) mg/dL Total Bilirubin 0.5 (0.2-1.3) mg/dL AST 89 H (17-59) IU/L ALT 70 H (<50) IU/L Alkaline Phosphatase 63 (38-126) U/L Total Protein 8.0 (6.3-8.2) g/dL Albumin 4.6 (3.5-5.0) g/dL Globulin 3.4 (1.7-4.1) g/dL Albumin/Globulin Ratio 1.4 (1.0-2.8) Lipase (23-300) U/L SARS-CoV-2 (PCR) (Negative) 12/31/20 12/31/20 12/31/20 Range/Units 01:55 02:25 04:32 WBC (4.5-11.0) X10^3/uL RBC (4.5-5.9) X10^6/uL Hgb (13.5-17.5) g/dL Hct (41-53) % MCV (80-100) fL MCH (26-34) PG MCHC (30-36) % RDW (11.6-14.8) % Plt Count (150-400) X10^3/uL Neut % (Auto) (50-75) % Lymph % (Auto) (25-40) % [place] % (Auto) (3-14) % Eos % (Auto) (2-4) % Baso % (Auto) (0-2) % Neut # (Auto) (2718-2321) /uL Lymph # (Auto) (8580-3837) /uL [place] # (Auto) (0-900) /uL Eos # (Auto) (0-450) /uL Baso # (Auto) (0-100) /uL Sodium (137-145) mmol/L Potassium (3.4-5.1) mmol/L Chloride (98-107) mmol/L Carbon Dioxide (22-32) mmol/L BUN (9-20) mg/dL Creatinine (0.66-1.25) mg/dL Estimated GFR (>60) mL/min BUN/Creatinine Ratio (6-22) Glucose (70-100) mg/dL Lactate 1.7 (0.7-2.1) mmol/L Calcium (8.4-10.2) mg/dL Total Bilirubin (0.2-1.3) mg/dL AST (17-59) IU/L ALT (<50) IU/L Alkaline Phosphatase (38-126) U/L Total Protein (6.3-8.2) g/dL Albumin (3.5-5.0) g/dL Globulin (1.7-4.1) g/dL Albumin/Globulin Ratio (1.0-2.8) Lipase 8965 H (23-300) U/L SARS-CoV-2 (PCR) Negative (Negative) Imaging Data CT scan - abdomen/pelvis: Radiologist's Impression: Extensive inflammatory changes surrounding the 2nd and 3rd portions of the duodenum and head of the pancreas, may be related to duodenitis versus acute pancreatitis. Correlate with pancreatic enzymes. Adjacent prominent lymph nodes likely reactive. No evidence of diverticulitis, bowel obstruction, uropathy or acute appendicitis Discharge Plan Departure Patient Disposition: Admitted As Inpatient Clinical Impression: Pancreatitis Qualifiers: Chronicity: acute Pancreatitis type: alcohol induced Acute pancreatitis complication: unspecified Qualified Code(s): K85.20 - Alcohol induced acute pancreatitis without necrosis or infection Admit Date/Time: 12/31/20 04:56 Admit Provider: Shantel Ardon
[2020-12-31] MEDS: HYDROMORPHONE 1 MG INJ IV (03:19)
[2020-12-31] MEDS: LACTATED RINGERS 1,000 ML 150 ML IV ×2 (03:19→12:02)
[2020-12-31 03:29] LABS: COVID19 - ADMIT (NP swab/PCR) Negative (Negative)
[2020-12-31 03:59] LABS: Reflexed Lactate in 2 Hours Y
[2020-12-31 04:35] LABS: Lipase 8965 U/L (23-300)
[2020-12-31 04:51] LABS: Lactate 2HR (Lactic Acid Rflx) 1.7 mmol/L (0.7-2.1)
[2020-12-31 05:34] LABS: Amylase 576 U/L (30-110)
[2020-12-31 05:35] LABS: Cholesterol 119 mg/dL (140-199); HDL Cholesterol 40 mg/dL (40-60); Magnesium 1.8 mg/dL (1.6-2.3); Triglycerides 418 mg/dL (35-150)
--- NOTE | 2020-12-31 05:42 | P.HP_ITS ---
History of Present Illness History of Present Illness Date Patient Seen: 12/31/20 Time Patient Seen: 05:42 Chief complaint: has hernia, nausea vomiting, pain Narrative: ?Joshua Huston is a 45 male smoker with history of HTN, alcohol abuse, hyperlipidemia, Hx of RI, CAD, and extensive bowel surgeries presents with the chief complaint of relatively sudden onset severe epigastric pain without obvious radiation. Worse with motion and improved with rest. Associated with nausea. No chest pain, SOB, body aches, fever, nausea, vomiting or chills. He has a large known ventral hernia. He's passing gas and had a BM earlier today. Patient drinks significant amount of alcohol daily. Patient has received a significant amount Dilaudid pain medication in the ED and has been given an additional dose upon admit to the floor and continues to arrives in pain dis cussed with the patient concerns regarding suppression of his respiratory rate and hypoxia experienced in the ED. The patient was writhing and grimacing in pain yet was found to be quickly calm and responsive when distracted during admit interview. Patient upon admit BP 150/82, HR 84, R 17, O2 saturation a presented patient's WBC is elevated 15 3, neutrophils 8100 lymph 4700, mono 1200, patient's lactate is 2.5, initial lipase 8965, AST 89, ALT 70. CT of abd/pelvis: Extensive inflammatory changes surrounding the 2nd and 3rd portions of the duodenum and head of the pancreas, may be related to duodenitis versus acute pancreatitis.? Correlate with pancreatic enzymes.? Adjacent prominent lymph nodes likely reactive.? No evidence of diverticulitis, bowel obstruction, uropathy or acute appendicitis. Patient admitted for acute alcohol-induced pancreatitis with leukocytosis. Patient History Medical History (Updated 12/31/20 @ 05:52 by PATRICIA Mascorro) Acute bronchitis Acute [place] Alcohol use disorder Bilateral otitis media Coronary artery disease involving [place] coronary artery of [place] heart without angina pectoris (06/16/16) Cough due to bronchospasm Excessive daytime sleepiness (06/16/16) History of alcohol abuse History of myocardial infarction (06/16/16) Hypertension Nocturnal hypoxia (06/16/16) Tobacco abuse Surgical History (Updated 12/31/20 @ 05:52 by PATRICIA Mascorro) History of intestinal surgery History of splenectomy (10/18/16) Family & Social History Family History Grandmother Age: 55 Breast cancer Safety & Behavioral: Feels Safe in Current Yes Environment Tobacco & Substance use: Smoking Status Current every day smoker alcohol intake frequency 3 or more drinks per day Substance Use Type does not use Meds Home Medications and Allergies Home Medications Medication Instructions Recorded Confirmed Type atorvastatin 40 mg tablet 40 mg PO HS #0 06/16/16 12/31/20 History nicotine 14 mg/24 hr daily 14 mg TOPICAL QDAYP PRN #0 06/16/16 12/31/20 History transdermal patch nitroglycerin 0.4 mg sublingual 0.4 mg SUBLINGUAL Q5M PRN #30 tab 09/03/17 12/31/20 Rx tablet (Nitrostat) epinephrine 0.3 mg/0.3 mL 0.3 mg IM X1 PRN 12/31/20 12/31/20 History injection, auto-injector (EpiPen 2-Mahendra) lisinopril 5 mg tablet 10 mg PO DAILY 12/31/20 12/31/20 History metoprolol tartrate 50 mg tablet 50 mg PO DAILY 12/31/20 12/31/20 History Allergies Allergy/AdvReac Type Severity Reaction Status Date / Time codeine [CODEINE] AdvReac Mild ITCHING Unverified 07/05/17 11:44 Review of Systems Review of Systems Narrative: All 12 point systems reviewed with the patient and are negative except otherwise documented. Exam Vital Signs (past 8 hours): - 12/31/20 01:43 12/31/20 01:45 12/31/20 02:00 Temperature 97 F L Pulse Rate 83 67 82 Respiratory Rate 17 Blood Pressure 150/88 H Pulse Oximetry 97 97 98 12/31/20 02:10 12/31/20 02:30 12/31/20 03:00 Temperature Pulse Rate 85 72 85 Respiratory Rate Blood Pressure 140/74 143/77 H Pulse Oximetry 97 97 92 12/31/20 03:02 12/31/20 03:30 12/31/20 04:00 Temperature Pulse Rate 84 82 86 Respiratory Rate Blood Pressure 150/82 H 144/78 H 147/81 H Pulse Oximetry 98 97 97 12/31/20 04:30 12/31/20 05:00 12/31/20 05:27 Temperature 97.9 F Pulse Rate 83 86 82 Respiratory Rate 18 Blood Pressure 143/79 H 145/81 H 159/96 H Pulse Oximetry 94 97 99 Oxygen Delivery Method Nasal Cannula Oxygen Flow Rate 3 Narrative Exam Narrative: General: Patient is a well-developed, well-nourished male in moderate pain but no hemodynamic distress at this time. HEENT: Normocephalic, atraumatic, extraocular muscles intact, oral pharynx is clear and mucous membranes are moist. Neck is supple and symmetric, trachea is midline, no adenopathy, no thyroid enlargement, nontender, no masses palpated. Negative for JVD Chest: Normal AP diameter and contour without kyphoscoliosis, no nasal flaring, retractions, or tachypneic labored Lungs: Auscultation of all lung albarran are clear without adventitious sounds, wheezes, rhonchi, or rales. Cardio: regular rate and rhythm without murmur, rubs, or gallops, no carotid bruit, no cardiac pulsations present. Abdomen: Soft, mild midline tenderness with palpation-the patient did not demonstrate rebound tenderness with palpation and exam, pain greater in the e pigastric area, negative for organomegaly, or masses. Bowel sounds are hyperactive present in all 4 quadrants. Musculoskeletal: Muscle strength and tone are equal within normal limits, no deformity, crepitus, effusions, cyanosis, clubbing or edema present. Full range of motion intact radial and pedal pulses are normal. Skin: Warm dry and intact without rashes, ulcerations or petechiae. Neuro: Alert and orientated x3, strength is +5/5 in all extremities, sensation to touch intact, no gross deficits noted of cranial nerves. Psych: Patient has a well-kept appearance, patient is physically agitated, writhing, grimacing, and crying out that he is suffering from significant abdominal pain, and that the IV Dilaudid only last for 10-15 minutes. Though patient intermittently during interview on admit became quite calm and responded appropriately in no distress, only too quickly then back to writhing in grimacing in pain Objective Labs Result Diagrams: 12/31/20 01:55 12/31/20 01:55 Labs: Laboratory Results - last 24 hr 12/31/20 12/31/20 12/31/20 01:55 01:55 01:55 WBC 15.3 H RBC 4.29 L Hgb 13.7 Hct 41.0 MCV 95.5 MCH 31.9 MCHC 33.4 RDW 13.5 Plt Count 298 Neut % (Auto) 57.2 Lymph % (Auto) 30.8 [place] % (Auto) 8.0 Eos % (Auto) 3.0 Baso % (Auto) 1.0 Neut # (Auto) 8700 H Lymph # (Auto) 4700 H [place] # (Auto) 1200 H Eos # (Auto) 500 H Baso # (Auto) 100 Sodium 139 Potassium 3.6 Chloride 100 Carbon Dioxide 28 BUN 16 Creatinine 1.12 Estimated GFR > 60.0 BUN/Creatinine Ratio 14.3 Glucose 121 H Lactate 2.5 H Calcium 10.6 H Total Bilirubin 0.5 AST 89 H ALT 70 H Alkaline Phosphatase 63 Total Protein 8.0 Albumin 4.6 Globulin 3.4 Albumin/Globulin Ratio 1.4 Lipase SARS-CoV-2 (PCR) 12/31/20 12/31/20 12/31/20 01:55 02:25 04:32 WBC RBC Hgb Hct MCV MCH MCHC RDW Plt Count Neut % (Auto) Lymph % (Auto) [place] % (Auto) Eos % (Auto) Baso % (Auto) Neut # (Auto) Lymph # (Auto) [place] # (Auto) Eos # (Auto) Baso # (Auto) Sodium Potassium Chloride Carbon Dioxide BUN Creatinine Estimated GFR BUN/Creatinine Ratio Glucose Lactate 1.7 Calcium Total Bilirubin AST ALT Alkaline Phosphatase Total Protein Albumin Globulin Albumin/Globulin Ratio Lipase 8965 H SARS-CoV-2 (PCR) Negative Assessment & Plan Assessment & Plan narrative: Humberto Huston is a 45 male smoker with history of HTN, alcohol abuse, hyperlipidemia, Hx of RI, CAD, and extensive bowel surgeries presents with the chief complaint of relatively sudden onset severe epigastric pain without obvious radiation. Patient admitted for alcohol-induced acute pancreatitis versus duodenitis with leukocytosis. 1.Alcohol-induced acute pancreatitis versus duodenitis with leukocytosis, acute, in the setting of alcohol abuse, acute on chronic, present on admission Differential diagnosis includes acute pancreatitis vs. microscopic colitis vs. Ischemic colitis vs. infectious colitis vs duodenitis. -WBC 15 3, neut 8100, lymph 4700, mono 1200, lactate is 2.5, lipase 8965, AST 89, ALT 70. -CT of abd/pelvis: Extensive inflammatory changes surrounding the 2nd and 3rd portions of the duodenum and head of the pancreas, may be related to duodenitis versus acute pancreatitis.? Correlate with pancreatic enzymes.? Adjacent prominent lymph nodes likely reactive.? No evidence of diverticulitis, bowel obstruction, uropathy or acute appendicitis. -Continue antiemetics and as needed pain medication. -rehydration: rehydration to continue with a goal of 0.5 cc/kilogram per hour of urine output then IV fluids to be continued NS150 cc/hour-monitor for fluid overload -patient NPO-started on trial clear liquids once patient has sustained absence vomiting and diarrhea, the goal to resolve in 24-48 hours, once patient has completed a trial of clear liquids may advance to a low-fiber diet as tolerated -monitor hematocrit and BUN -initial WNL -a.m. Labs amylase, CRP, CMP and CBC -patient admitted under [facility] protocol for alcohol withdrawal -based on WBC 15.3, neutrophils 8700, lactate 2.5-ordered Zosyn 3.375 following collection of urine for culture and blood cultures x2-for broad-spectrum intra- abdominal coverage until culture results come back. -recommend dietary counseling regarding cessation of alcohol 2. Essential hypertension the setting of history of RI, and coronary artery disease of the [place] artery, acute on chronic, present on admission -initial 159/96 -continue patient's metoprolol, lisinopril, Plavix 3. Hyperlipidemia, chronic, present on admission -continue patient's Lipitor Code status:Full Surrogate decision maker: Significant other Emily NADINE PCR:Negative COVID vaccination: unknown DVT/VTE prophylaxis: Patient to continue his Eliquis and SCDs Disposition: Patient expected length of stay less than 2 midnights with the intention of resolving acute pancreatitis within 24-48 hours, admitted for observation. I have utilized all available immediate resources to obtain, update, or review the patient's current medications. I confirmed that the patient's advanced care plan is present, Code status is documented and/or surrogate decision maker is listed in the patient's medical record. Time Spent With Patient Critical Care time: I spent a total of [] minutes of critical care time on this patient's care today; this time is exclusive of procedural time.
--- NOTE | 2020-12-31 06:54 | PC.ADMIT ---
[email or web address] [place] [address] Admission Note: Patient arrived from the ED via stretcher on 3L NC. Patients KODY Diaz was with patient and stayed in patients room. Patients home medications, call light, and fall precautions were reviewed. Call light and belongings were left within reach. Patient was given 0.5mg IV Diluadid NOW for pain 01/03. Seizure precautions were put into place. The patient,Joshua Huston,45 y/o, was given written information regarding hospital policies, unit procedures and contact persons. Patient's smoking status: Current every day smoker. Vital Signs - 8 hr 12/31/20 01:43 12/31/20 01:45 12/31/20 02:00 Temperature 97 F L Pulse Rate 83 67 82 Respiratory Rate 17 Blood Pressure 150/88 H Pulse Oximetry 97 97 98 12/31/20 02:10 12/31/20 02:30 12/31/20 03:00 Temperature Pulse Rate 85 72 85 Respiratory Rate Blood Pressure 140/74 143/77 H Pulse Oximetry 97 97 92 12/31/20 03:02 12/31/20 03:30 12/31/20 04:00 Temperature Pulse Rate 84 82 86 Respiratory Rate Blood Pressure 150/82 H 144/78 H 147/81 H Pulse Oximetry 98 97 97 12/31/20 04:30 12/31/20 05:00 12/31/20 05:27 Temperature 97.9 F Pulse Rate 83 86 82 Respiratory Rate 18 Blood Pressure 143/79 H 145/81 H 159/96 H Pulse Oximetry 94 97 99 12/31/20 06:02 Temperature Pulse Rate Respiratory Rate Blood Pressure Pulse Oximetry 96
[2020-12-31] MEDS: THIAMINE 100 MG TABLET PO (09:02)
[2020-12-31] MEDS: MULTIVITAMIN 1 TABLET 1 TAB PO (09:03)
[2020-12-31] MEDS: METOPROLOL IR 50 MG TABLET PO (09:03)
[2020-12-31] MEDS: APIXABAN 5 MG TABLET PO (09:03)
[2020-12-31] MEDS: NICOTINE 14 PATCH 14 MG TOP (09:03)
[2020-12-31] MEDS: FOLIC ACID 1 MG TABLET PO (09:03)
[2020-12-31] MEDS: OXYCODONE IR 5 MG TABLET PO ×3 (11:59→21:57)
[2020-12-31] MEDS: ACETAMINOPHEN 325 MG TABLET 650 MG PO (11:59)
--- NOTE | 2020-12-31 12:12 | CM.IDA ---
Initial DCP Assessment Note Pt is a 45 yo female, resident of [place], presents w/ N/V, pain and diagnosed with alcohol induced pancreatitis. PCP: Formerly Dr Weaver, just changed to Dr Cline/[facility] Payer: [employer]/[facility] Reviewed chart, pt discussed in multidisciplinary rounds this morning. Patient w/CIWA of 7 this AM. Met w/patient and kyler Diaz, who was at the window bench. Patient admits to drinking approx. 5 glasses every evening of vodka and mixer. Patient lives w/fiance, just got a new job, says he was sober a year or so ago for a few weeks. Patient admits to drinking at this rate for years, a long time. Patient denies that his drinking is a problem and denies needs from this SIDEROGRAPHER at this time. Kyler Diaz also an active drinker. No needs expected from DC planning team at this time, will remain available in case this changes for patient's DC. RAJ Hart Discharge Planning/Care Management CM Discharge Assessment Start: 12/31/20 12:09 Freq: Status: Active Protocol: Document 12/31/20 12:09 WANG (Rec: 12/31/20 12:12 WANG [email or web address]) Discharge Planning Assessment Assigned Piano Refinisher RAJ Coppola DPOA/Assigned Designee Name Rosio Orona, friend Contact Information Juliette Christopher, Aunt Advance Directives? No History Provided By Patient,Significant Other Prior Living Arrangements House Household Members significant other Type of transporation used prior to Drives own vehicle admit Independent with ADL's Yes Is patient alert and oriented? Yes Barriers to Discharge No Discharge Plan Home Transportation Arrangement Friend/Fiandrew Referrals Initiated None needed Additional Comment At this time Whiteboard Updated in Patient Room with Yes name and ext. # of Piano Refinisher
[2020-12-31] MEDS: PANTOPRAZOLE 40 MG VIAL IV ×2 (13:20→21:01)
[2020-12-31] MEDS: SODIUM CHLORIDE 0.9% 1,000 ML 250 ML IV ×2 (13:21→21:01)
[2020-12-31 15:08] LABS: Hematocrit 38.5 % (41-53); Hemoglobin 12.8 g/dL (13.5-17.5); Mean Corpuscular HGB Conc 33.2 % (30-36); Mean Corpuscular Hemoglobin 31.6 PG (26-34); Mean Corpuscular Volume 95.2 fL (80-100); Platelet Count 269 X10^3/uL (150-400); Red Blood Cell Count 4.05 X10^6/uL (4.5-5.9); Red Cell Distribution Width 13.7 % (11.6-14.8); White Blood Cell Count 25.3 X10^3/uL (4.5-11.0)
[2020-12-31 15:19] LABS: BUN Creatinine Ratio 15.2 (6-22); Blood Urea Nitrogen 15 mg/dL (9-20); Calcium 9.6 mg/dL (8.4-10.2); Carbon Dioxide 30 mmol/L (22-32); Chloride 101 mmol/L (98-107); Estimated Glomerular Filt Rate > 60.0 mL/min (>60); Glucose 123 mg/dL (70-100); HEMOLYSIS < 15 (0-50); Magnesium 1.2 mg/dL (1.6-2.3); Potassium 3.8 mmol/L (3.4-5.1); Sodium 136 mmol/L (137-145)
--- NOTE | 2020-12-31 16:19 | P.PN_ITS ---
Subjective Subjective Date Patient Seen: 12/31/20 Time Patient Seen: 08:00 Interval history: Today had an episode of vomiting. Still having significant abdominal pain. No fevers. Exam Vital Signs (past 8 hours): - 12/31/20 09:20 12/31/20 10:00 12/31/20 13:20 Temperature 97.9 F 98.5 F Pulse Rate 101 H 92 H Respiratory Rate 18 17 Blood Pressure 155/103 H 157/87 H Pulse Oximetry 97 97 98 12/31/20 14:00 12/31/20 15:20 Temperature 98.1 F Pulse Rate 98 H Respiratory Rate 18 Blood Pressure 144/88 H Pulse Oximetry 98 97 Oxygen Delivery Method Nasal Cannula Oxygen Flow Rate 2 Narrative Exam Narrative: General:? moderate distress from abdominal pain Lungs:?clear bilaterally, no wheezes, rhonchi, rales Cardio:? regular rate and rhythm without murmur, rubs, or gallops, no carotid bruit, no cardiac pulsations present. Abdomen:? Soft, mild midline tenderness with palpation-the patient did not demonstrate rebound tenderness with palpation and exam, pain greater in the epigastric area, negative for organomegaly, or masses.? Bowel sounds are hyperactive present in all 4 quadrants. Musculoskeletal:? Muscle strength and tone are equal within normal limits, no deformity, crepitus, effusions, cyanosis, clubbing or edema present.? Full range of motion intact radial and pedal pulses are normal. Skin:? Warm dry and intact without rashes, ulcerations or petechiae.? Neuro:? Alert and orientated x3, strength is +5/5 in all extremities, sensation to touch intact, no gross deficits noted of cranial nerves. Psych:? Patient has a well-kept appearance, patient is physically agitated, writhing, grimacing, and crying out that he is suffering from significant abdominal pain, and that the IV Dilaudid only last for 10-15 minutes.? Though patient intermittently during interview on admit became quite calm and responded appropriately in no distress, only too quickly then back to writhing in grimacing in pain Objective Labs Result Diagrams: 12/31/20 14:58 12/31/20 14:58 Labs: Laboratory Results - last 24 hr 12/31/20 12/31/20 12/31/20 01:55 01:55 01:55 WBC 15.3 H RBC 4.29 L Hgb 13.7 Hct 41.0 MCV 95.5 MCH 31.9 MCHC 33.4 RDW 13.5 Plt Count 298 Neut % (Auto) 57.2 Lymph % (Auto) 30.8 [place] % (Auto) 8.0 Eos % (Auto) 3.0 Baso % (Auto) 1.0 Neut # (Auto) 8700 H Lymph # (Auto) 4700 H [place] # (Auto) 1200 H Eos # (Auto) 500 H Baso # (Auto) 100 Sodium 139 Potassium 3.6 Chloride 100 Carbon Dioxide 28 BUN 16 Creatinine 1.12 Estimated GFR > 60.0 BUN/Creatinine Ratio 14.3 Glucose 121 H Lactate 2.5 H Calcium 10.6 H Magnesium Total Bilirubin 0.5 AST 89 H ALT 70 H Alkaline Phosphatase 63 Total Protein 8.0 Albumin 4.6 Globulin 3.4 Albumin/Globulin Ratio 1.4 Triglycerides Cholesterol LDL Cholesterol, Calc HDL Cholesterol Amylase Lipase SARS-CoV-2 (PCR) 12/31/20 12/31/20 12/31/20 01:55 01:55 01:55 WBC RBC Hgb Hct MCV MCH MCHC RDW Plt Count Neut % (Auto) Lymph % (Auto) [place] % (Auto) Eos % (Auto) Baso % (Auto) Neut # (Auto) Lymph # (Auto) [place] # (Auto) Eos # (Auto) Baso # (Auto) Sodium Potassium Chloride Carbon Dioxide BUN Creatinine Estimated GFR BUN/Creatinine Ratio Glucose Lactate Calcium Magnesium Total Bilirubin AST ALT Alkaline Phosphatase Total Protein Albumin Globulin Albumin/Globulin Ratio Triglycerides 418 H Cholesterol 119 L LDL Cholesterol, Calc TNP HDL Cholesterol 40 Amylase 576 H Lipase 8965 H SARS-CoV-2 (PCR) 12/31/20 12/31/20 12/31/20 01:55 02:25 04:32 WBC RBC Hgb Hct MCV MCH MCHC RDW Plt Count Neut % (Auto) Lymph % (Auto) [place] % (Auto) Eos % (Auto) Baso % (Auto) Neut # (Auto) Lymph # (Auto) [place] # (Auto) Eos # (Auto) Baso # (Auto) Sodium Potassium Chloride Carbon Dioxide BUN Creatinine Estimated GFR BUN/Creatinine Ratio Glucose Lactate 1.7 Calcium Magnesium 1.8 Total Bilirubin AST ALT Alkaline Phosphatase Total Protein Albumin Globulin Albumin/Globulin Ratio Triglycerides Cholesterol LDL Cholesterol, Calc HDL Cholesterol Amylase Lipase SARS-CoV-2 (PCR) Negative 12/31/20 12/31/20 14:58 14:58 WBC 25.3 H D RBC 4.05 L Hgb 12.8 L Hct 38.5 L MCV 95.2 MCH 31.6 MCHC 33.2 RDW 13.7 Plt Count 269 Neut % (Auto) Lymph % (Auto) [place] % (Auto) Eos % (Auto) Baso % (Auto) Neut # (Auto) Lymph # (Auto) [place] # (Auto) Eos # (Auto) Baso # (Auto) Sodium 136 L Potassium 3.8 Chloride 101 Carbon Dioxide 30 BUN 15 Creatinine 0.99 Estimated GFR > 60.0 BUN/Creatinine Ratio 15.2 Glucose 123 H Lactate Calcium 9.6 Magnesium 1.2 L Total Bilirubin AST ALT Alkaline Phosphatase Total Protein Albumin Globulin Albumin/Globulin Ratio Triglycerides Cholesterol LDL Cholesterol, Calc HDL Cholesterol Amylase Lipase SARS-CoV-2 (PCR) [facility] Medical History (Updated 12/31/20 @ 05:52 by PATRICIA Mascorro) Acute bronchitis Acute [place] Alcohol use disorder Bilateral otitis media Coronary artery disease involving [place] coronary artery of [place] heart without angina pectoris (06/16/16) Cough due to bronchospasm Excessive daytime sleepiness (06/16/16) History of alcohol abuse History of myocardial infarction (06/16/16) Hypertension Nocturnal hypoxia (06/16/16) Tobacco abuse Surgical History (Updated 12/31/20 @ 05:52 by PATRICIA Mascorro) History of intestinal surgery 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
[2020-12-31] MEDS: MAGNESIUM SULFATE 2 GM/50 ML PIGGYBACK IV (16:47)
[2020-12-31] MEDS: ATORVASTATIN 20 MG TABLET 40 MG PO (21:00)
[2021-01-01] VITALS (14 sets, daily range): BP systolic 132–148; BP diastolic 73–94; PULSE 90–104; RESP 16–20; TEMP 36.4–37.7; O2SAT 92–96
[2021-01-01] MEDS: LORazepam 1 MG TABLET PO ×2 (01:13→21:18)
[2021-01-01] MEDS: SODIUM CHLORIDE 0.9% 1,000 ML 250 ML IV ×5 (01:15→22:34)
[2021-01-01] MEDS: HYDROMORPHONE 0.5 MG INJ IV ×2 (01:46→08:48)
[2021-01-01] MEDS: ACETAMINOPHEN 325 MG TABLET 650 MG PO ×2 (01:46→08:48)
--- NOTE | 2021-01-01 03:52 | PC.NURSE ---
1mg ativan PO x1 given at 0113 to alleviate patient's anxiety per verbal order from Dr. Ardon.
[2021-01-01 06:22] LABS: Hematocrit 37.6 % (41-53); Hemoglobin 12.3 g/dL (13.5-17.5); Mean Corpuscular HGB Conc 32.7 % (30-36); Mean Corpuscular Hemoglobin 31.4 PG (26-34); Mean Corpuscular Volume 96.1 fL (80-100); Platelet Count 243 X10^3/uL (150-400); Red Blood Cell Count 3.91 X10^6/uL (4.5-5.9); Red Cell Distribution Width 13.7 % (11.6-14.8)
[2021-01-01 06:38] LABS: Add Manual Diff / Slide Review YES; White Blood Cell Count 31.3 X10^3/uL (4.5-11.0)
[2021-01-01 06:41] LABS: Alanine Aminotransferase 44 IU/L (<50); Albumin 3.4 g/dL (3.5-5.0); Albumin Globulin Ratio 1.1 (1.0-2.8); Alkaline Phosphatase 44 U/L (38-126); Aspartate Aminotransferase 43 IU/L (17-59); BUN Creatinine Ratio 12.1 (6-22); Bilirubin Unconjugated 0.6 mg/dL (0.0-1.1); Blood Urea Nitrogen 11 mg/dL (9-20); Calcium 8.8 mg/dL (8.4-10.2); Carbon Dioxide 28 mmol/L (22-32); Chloride 100 mmol/L (98-107); Estimated Glomerular Filt Rate > 60.0 mL/min (>60); Glucose 110 mg/dL (70-100); HEMOLYSIS < 15 (0-50); Magnesium 1.4 mg/dL (1.6-2.3); Potassium 4.1 mmol/L (3.4-5.1); Sodium 132 mmol/L (137-145); Total Protein 6.4 g/dL (6.3-8.2)
[2021-01-01] MEDS: OXYCODONE IR 5 MG TABLET PO (06:53)
--- NOTE | 2021-01-01 07:31 | PC.NURSE ---
Patient A/O x 3, resting in bed, states Oxy PRN has improved his epigastric pain. NS infusing at 250cc/hr, IV site patent, free of complications. HRR, denies SOB or chest pain, Lungs CTA, currently on RA, RR WNL. Patient voiding without complications. C/O feeling bloated, would like to have a stool softener, will f/u with MD. Patient denies further needs at this time. Remains NPO w/ ice chips. Bed alarm remains off. Patient calls appropriately.
[2021-01-01 07:39] LABS: Neutrophils Absolute Manual 29735 /uL (3000-5900); Total Cells Counted 100
[2021-01-01 07:40] LABS: RBC Morphology Normal Morphology
[2021-01-01] MEDS: THIAMINE 100 MG TABLET PO (08:47)
[2021-01-01] MEDS: FOLIC ACID 1 MG TABLET PO (08:47)
[2021-01-01] MEDS: METOPROLOL IR 50 MG TABLET PO (08:47)
[2021-01-01] MEDS: PANTOPRAZOLE 40 MG VIAL IV ×2 (08:47→21:18)
[2021-01-01] MEDS: MULTIVITAMIN 1 TABLET 1 TAB PO (08:47)
--- NOTE | 2021-01-01 11:30 | DI.CT.S_ITS ---
PROCEDURE: CT ABDOMEN PELVIS W CON INDICATIONS: pancreatitis, now rising wbc, distended, not passing gas TECHNIQUE: After the administration of oral and IV contrast, axial sections were acquired from the lung bases to the pubic symphysis. Coronal and sagittal reformats were performed. For radiation dose reduction, the following was used: automated exposure control, adjustment of mA and/or kV according to patient size. COMPARISON: [facility], CT, CHEST ABDOMEN PELVIS WITH CONTRAST, 10/15/2010, 16:32. [facility], CT, CT ABDOMEN PELVIS W CON, 12/31/2020, 1:52. FINDINGS: Image quality: Excellent. Lung bases: Trace bilateral pleural effusions are seen. Mild dependent atelectasis is seen. Heart: No significant findings. ABDOMEN: Liver: Unremarkable. Gallbladder: Unremarkable. Biliary ducts: Unremarkable. Pancreas: Prominent phlegm a alex changes can be seen surrounding the pancreas, which is consistent with the given clinical history of pancreatitis. Within the anterior head of the pancreas, there is a poorly enhancing focus seen, as on series 2, image 45 measuring 21 mm. No pancreatic pseudocysts can be seen. The pancreatic duct does not appear dilated. Spleen: Unremarkable. Adrenal Glands: Unremarkable. Kidneys and Ureters: Unremarkable. Stomach and Bowel: Wall thickening can be seen involving the distal stomach and the duodenum. Stomach, small bowel loops, and colon are otherwise unremarkable. Peritoneum: No abnormal intraperitoneal fluid. No free air. Ventral Wall: There is a fat containing epigastric hernia seen. Just superior to the umbilicus, there is an additional hernia seen that contains nondilated small bowel. Abdominal Nodes: No retroperitoneal or mesenteric adenopathy by size criteria. Vessels: Aorta and inferior vena cava are normal in size. PELVIS: Pelvic Organs: Unremarkable. Bladder: Unremarkable. Pelvic Nodes: No enlarged lymph nodes. Miscellaneous: No inguinal hernias are seen. Bones: This patient has transitional lumbar anatomy. For the purposes of this examination, the level with the tiny vestigial ribs is considered to be T12. By this numbering scheme, the L5 level is transitional and partially sacralized, particularly on the left side. Degenerative changes are seen throughout, which are worst involving the lower lumbar spine. The IMPRESSION: Interval worsening of a ventral wall hernia, which now contains nondilated small bowel. This does not appear obstructed at the time of this study. Advanced pancreatitis. Within the anterior head of the pancreas, there is a poorly enhancing focus seen, which is most likely related to a small focus of necrosis. There is associated wall thickening of the adjacent duodenum. Small bilateral pleural effusions with overlying atelectasis can be seen. Incidental note is made of: Transitional lumbar anatomy Dictated by: Fam Love M.D. on 01/01/2021 at 12:59 Approved by: Fam Love M.D. on 01/01/2021 at 13:05
[2021-01-01] MEDS: PIPERACILLIN/TAZO 4.5 GM in SODIUM CHLORIDE 0.9% 100 ML 200 ML IV (12:43)
[2021-01-01] MEDS: MAGNESIUM SULFATE 2 GM/50 ML PIGGYBACK IV ×2 (12:44→17:09)
[2021-01-01] MEDS: ENOXAPARIN 40 MG/0.4 ML SYRINGE SUBCUT (12:59)
[2021-01-01 16:21] LABS: Hematocrit 35.7 % (41-53); Hemoglobin 11.8 g/dL (13.5-17.5); Mean Corpuscular Hemoglobin 31.8 PG (26-34); Mean Corpuscular Volume 96.4 fL (80-100); Platelet Count 234 X10^3/uL (150-400); Red Blood Cell Count 3.71 X10^6/uL (4.5-5.9); Red Cell Distribution Width 13.6 % (11.6-14.8); White Blood Cell Count 28.8 X10^3/uL (4.5-11.0)
[2021-01-01 16:32] LABS: Blood Urea Nitrogen 10 mg/dL (9-20); Calcium 8.6 mg/dL (8.4-10.2); Carbon Dioxide 27 mmol/L (22-32); Chloride 99 mmol/L (98-107); Estimated Glomerular Filt Rate > 60.0 mL/min (>60); Glucose 103 mg/dL (70-100); HEMOLYSIS < 15 (0-50); Magnesium 1.8 mg/dL (1.6-2.3); Potassium 4.3 mmol/L (3.4-5.1); Sodium 131 mmol/L (137-145)
[2021-01-01] MEDS: BISACODYL 10 MG SUPP PR (17:10)
--- NOTE | 2021-01-01 17:16 | P.PN_ITS ---
Subjective Subjective Date Patient Seen: 01/01/21 Time Patient Seen: 08:00 Interval history: Today his abdominal pain is improved. He is not nauseous or vomiting. He has not had a bowel movement in the last day. He is not currently withdrawing. He has no fevers/chills. Exam Vital Signs (past 8 hours): - 01/01/21 10:00 01/01/21 11:19 01/01/21 11:25 Temperature 98.1 F Pulse Rate 98 H Respiratory Rate 16 Blood Pressure 148/86 H Pulse Oximetry 96 93 01/01/21 14:00 01/01/21 15:00 Temperature 98.4 F Pulse Rate 90 Respiratory Rate 18 Blood Pressure 140/94 H Pulse Oximetry 96 Oxygen Delivery Method Room Air Oxygen Flow Rate 0 Narrative Exam Narrative: General:? no acute distress Lungs:? clear bilaterally Cardio:? regular rate and rhythm with no murmurs Abdomen:? soft, distended, reduced bowel sounds, ventral hernia easily reducible, no rebound/guarding EXT: warm and well perfused with no edema Objective Labs Result Diagrams: 01/01/21 16:13 01/01/21 16:13 Labs: Laboratory Results - last 24 hr 01/01/21 01/01/21 01/01/21 05:58 05:58 16:13 WBC 31.3 H* 28.8 H RBC 3.91 L 3.71 L Hgb 12.3 L 11.8 L Hct 37.6 L 35.7 L MCV 96.1 96.4 MCH 31.4 31.8 MCHC 32.7 33.0 RDW 13.7 13.6 Plt Count 243 234 Neut % (Auto) Not Reportable Lymph % (Auto) Not Reportable [place] % (Auto) Not Reportable Eos % (Auto) Not Reportable Baso % (Auto) Not Reportable Lymph # (Auto) Not Reportable [place] # (Auto) Not Reportable Baso # (Auto) Not Reportable Total Counted 100 Seg Neutrophils % 87.0 H Band Neutrophils % 8.0 H Lymphocytes % (Manual) 3.0 L Monocytes % (Manual) 2.0 Neutrophils # (Manual) 89012 H RBC Morphology Normal morphology Sodium 132 L Potassium 4.1 Chloride 100 Carbon Dioxide 28 BUN 11 Creatinine 0.91 Estimated GFR > 60.0 BUN/Creatinine Ratio 12.1 Glucose 110 H Calcium 8.8 Magnesium 1.4 L Total Bilirubin 1.0 Conjugated Bilirubin 0.0 Unconjugated Bilirubin 0.6 AST 43 ALT 44 Alkaline Phosphatase 44 Total Protein 6.4 Albumin 3.4 L Globulin 3.0 Albumin/Globulin Ratio 1.1 01/01/21 16:13 WBC RBC Hgb Hct MCV MCH MCHC RDW Plt Count Neut % (Auto) Lymph % (Auto) [place] % (Auto) Eos % (Auto) Baso % (Auto) Lymph # (Auto) [place] # (Auto) Baso # (Auto) Total Counted Seg Neutrophils % Band Neutrophils % Lymphocytes % (Manual) Monocytes % (Manual) Neutrophils # (Manual) RBC Morphology Sodium 131 L Potassium 4.3 Chloride 99 Carbon Dioxide 27 BUN 10 Creatinine 1.00 Estimated GFR > 60.0 BUN/Creatinine Ratio 10.0 Glucose 103 H Calcium 8.6 Magnesium 1.8 Total Bilirubin Conjugated Bilirubin Unconjugated Bilirubin AST ALT Alkaline Phosphatase Total Protein Albumin Globulin Albumin/Globulin Ratio [facility] Medical History (Updated 12/31/20 @ 05:52 by PATRICIA Mascorro) Acute bronchitis Acute [place] Alcohol use disorder Bilateral otitis media Coronary artery disease involving [place] coronary artery of [place] heart without angina pectoris (06/16/16) Cough due to bronchospasm Excessive daytime sleepiness (06/16/16) History of alcohol abuse History of myocardial infarction (06/16/16) Hypertension Nocturnal hypoxia (06/16/16) Tobacco abuse Surgical History (Updated 12/31/20 @ 05:52 by PATRICIA Mascorro) History of intestinal surgery 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 Huston is a 45M with PMH HTN, alcohol abuse, hyperlipidemia, CAD s/p stents, hernia s/p surgery, with current ventral hernia, PE who presents with epigastric pain secondary to acute pancreatitis. 1.Alcohol-induced acute pancreatitis -WBC initially 15.3, lactate 2.5, lipase 8965 -has been resuscitated with over 8L of IV fluid -decreased IVF to 150cc/hr -may need lasix if continues to third spaces significantly -initial CT of abdomen showed significant inflammation at head of pancreas. repeat CT on 01/01 showed worsening inflammation and possibly developing necrosis -WBC on 01/01 up to 31, bands 8% -started zosyn -blood cultures pending -keep NPO -low threshold to transfer is developing clinical signs of decompensation which would need IR drainage of pancreas vs surgical management 2. Alcohol abuse -not currently in withdrawal -CIWA protocol ordered -ordered for MVI, thiamine, folate 3. CAD s/p stent with HTN and HL -continue ome meds of statin, metoprolol -hold lisinopril 4. History of PE -continue eliquis Time Spent With Patient Critical Care time: I spent a total of [] minutes of critical care time on this patient's care today; this time is exclusive of procedural time.
[2021-01-01] MEDS: PIPERACILLIN/TAZO 4.5 GM in SODIUM CHLORIDE 0.9% 100 ML 25 ML IV (17:24)
[2021-01-01 18:39] LABS: Procalcitonin 1.16 ng/mL (<0.5)
[2021-01-01] MEDS: ATORVASTATIN 20 MG TABLET 40 MG PO (21:17)
[2021-01-01] MEDS: APIXABAN 5 MG TABLET PO (21:18)
[2021-01-02] VITALS (12 sets, daily range): BP systolic 137–158; BP diastolic 72–90; PULSE 80–101; RESP 16–18; TEMP 36.6–37.5; O2SAT 93–97
[2021-01-02] MEDS: PIPERACILLIN/TAZO 4.5 GM in SODIUM CHLORIDE 0.9% 100 ML 25 ML IV ×3 (00:30→15:51)
[2021-01-02] MEDS: SODIUM CHLORIDE 0.9% 1,000 ML 150 ML IV ×3 (05:58→20:06)
[2021-01-02] MEDS: PANTOPRAZOLE 40 MG VIAL IV ×2 (07:48→20:07)
[2021-01-02] MEDS: APIXABAN 5 MG TABLET PO ×2 (07:49→20:07)
[2021-01-02] MEDS: THIAMINE 100 MG TABLET PO (07:50)
[2021-01-02] MEDS: METOPROLOL IR 50 MG TABLET PO (07:50)
[2021-01-02] MEDS: FOLIC ACID 1 MG TABLET PO (07:50)
[2021-01-02] MEDS: MULTIVITAMIN 1 TABLET 1 TAB PO (07:50)
[2021-01-02 09:27] LABS: Hematocrit 34.5 % (41-53); Hemoglobin 11.8 g/dL (13.5-17.5); Mean Corpuscular HGB Conc 34.1 % (30-36); Mean Corpuscular Hemoglobin 32.5 PG (26-34); Mean Corpuscular Volume 95.1 fL (80-100); Platelet Count 217 X10^3/uL (150-400); Red Blood Cell Count 3.63 X10^6/uL (4.5-5.9); Red Cell Distribution Width 13.5 % (11.6-14.8); White Blood Cell Count 25.6 X10^3/uL (4.5-11.0)
[2021-01-02 09:46] LABS: Magnesium 2.1 mg/dL (1.6-2.3)
[2021-01-02 09:47] LABS: BUN Creatinine Ratio 11.6 (6-22); Blood Urea Nitrogen 10 mg/dL (9-20); Calcium 8.6 mg/dL (8.4-10.2); Carbon Dioxide 25 mmol/L (22-32); Chloride 102 mmol/L (98-107); Estimated Glomerular Filt Rate > 60.0 mL/min (>60); Glucose 94 mg/dL (70-100); HEMOLYSIS < 15 (0-50); Potassium 3.9 mmol/L (3.4-5.1); Sodium 132 mmol/L (137-145)
[2021-01-02 10:20] LABS: Add Manual Diff / Slide Review YES
[2021-01-02 10:27] LABS: Neutrophils Absolute Manual 23552 /uL (3000-5900); Total Cells Counted 100
[2021-01-02 10:28] LABS: RBC Morphology Normal Morphology
[2021-01-02 11:28] LABS: Alanine Aminotransferase 35 IU/L (<50)
--- NOTE | 2021-01-02 13:01 | P.PN_ITS ---
Subjective Subjective Date Patient Seen: 01/02/21 Time Patient Seen: 09:45 Interval history: Improving abdominal pain today, about 2/10. No nausea or vomiting. Feels hungry. No fevers or chills. Exam Vital Signs (past 8 hours): - 01/02/21 06:00 01/02/21 07:45 01/02/21 09:14 Temperature 98.3 F Pulse Rate 96 H Respiratory Rate 16 Blood Pressure 158/86 H Pulse Oximetry 96 97 95 01/02/21 10:00 01/02/21 11:32 Temperature 97.9 F Pulse Rate 80 Respiratory Rate 16 Blood Pressure 142/89 H Pulse Oximetry 97 96 Oxygen Delivery Method Room Air Oxygen Flow Rate 0 Narrative Exam Narrative: General:? no acute distress, obese male Lungs:? clear bilaterally no wheezing rhonchi or rales. Cardio:? regular rate and rhythm with no murmurs Abdomen:? soft, no distension, minimal to no tenderness in epigastrium, ventral hernia easily reducible, no rebound/guarding EXT: warm and well perfused with no edema Objective Labs Result Diagrams: 01/02/21 09:05 01/02/21 09:05 Labs: Laboratory Results - last 24 hr 01/01/21 01/01/21 01/01/21 16:13 16:13 16:13 WBC 28.8 H RBC 3.71 L Hgb 11.8 L Hct 35.7 L MCV 96.4 MCH 31.8 MCHC 33.0 RDW 13.6 Plt Count 234 Neut % (Auto) Lymph % (Auto) [place] % (Auto) Eos % (Auto) Baso % (Auto) Neut # (Auto) Lymph # (Auto) [place] # (Auto) Eos # (Auto) Baso # (Auto) Total Counted Seg Neutrophils % Band Neutrophils % Lymphocytes % (Manual) Monocytes % (Manual) Eosinophils % (Manual) Neutrophils # (Manual) RBC Morphology Sodium 131 L Potassium 4.3 Chloride 99 Carbon Dioxide 27 BUN 10 Creatinine 1.00 Estimated GFR > 60.0 BUN/Creatinine Ratio 10.0 Glucose 103 H Calcium 8.6 Magnesium 1.8 ALT Procalcitonin 1.16 H 01/02/21 01/02/21 01/02/21 09:05 09:05 09:05 WBC 25.6 H RBC 3.63 L Hgb 11.8 L Hct 34.5 L MCV 95.1 MCH 32.5 MCHC 34.1 RDW 13.5 Plt Count 217 Neut % (Auto) [employer] Lymph % (Auto) [employer] [place] % (Auto) [employer] Eos % (Auto) [employer] Baso % (Auto) [employer] Neut # (Auto) [employer] Lymph # (Auto) [employer] [place] # (Auto) [employer] Eos # (Auto) [employer] Baso # (Auto) [employer] Total Counted 100 Seg Neutrophils % 62.0 Band Neutrophils % 30.0 H Lymphocytes % (Manual) 3.0 L Monocytes % (Manual) 3.0 Eosinophils % (Manual) 2.0 Neutrophils # (Manual) 68921 H RBC Morphology Normal morphology Sodium 132 L Potassium 3.9 Chloride 102 Carbon Dioxide 25 BUN 10 Creatinine 0.86 Estimated GFR > 60.0 BUN/Creatinine Ratio 11.6 Glucose 94 Calcium 8.6 Magnesium 2.1 ALT Procalcitonin 01/02/21 11:00 WBC RBC Hgb Hct MCV MCH MCHC RDW Plt Count Neut % (Auto) Lymph % (Auto) [place] % (Auto) Eos % (Auto) Baso % (Auto) Neut # (Auto) Lymph # (Auto) [place] # (Auto) Eos # (Auto) Baso # (Auto) Total Counted Seg Neutrophils % Band Neutrophils % Lymphocytes % (Manual) Monocytes % (Manual) Eosinophils % (Manual) Neutrophils # (Manual) RBC Morphology Sodium Potassium Chloride Carbon Dioxide BUN Creatinine Estimated GFR BUN/Creatinine Ratio Glucose Calcium Magnesium ALT 35 Procalcitonin [facility] Medical History (Updated 12/31/20 @ 05:52 by PATRICIA Mascorro) Acute bronchitis Acute [place] Alcohol use disorder Bilateral otitis media Coronary artery disease involving [place] coronary artery of [place] heart without angina pectoris (06/16/16) Cough due to bronchospasm Excessive daytime sleepiness (06/16/16) History of alcohol abuse History of myocardial infarction (06/16/16) Hypertension Nocturnal hypoxia (06/16/16) Tobacco abuse Surgical History (Updated 12/31/20 @ 05:52 by PATRICIA Mascorro) History of intestinal surgery 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 Huston is a 45M with PMH HTN, alcohol abuse, hyperlipidemia, CAD s/p stents, hernia s/p surgery, with current ventral hernia, PE who remains admitted with epigastric pain secondary to acute pancreatitis.? 1.Alcohol-induced acute pancreatitis with possible infected necrosis. -WBC initially 15.3, lactate 2.5, lipase 8965. -has been resuscitated with over 8L of IV fluid -decreased IVF to 150cc/hr, will continue given starting CLD. Consider decreasing further depending on diet. -may need lasix if continues to third spaces significantly -initial CT of abdomen showed significant inflammation at head of pancreas. repeat CT on 01/01 showed worsening inflammation and possibly developing necrosis -WBC on 01/01 up to 31, bands 8%. Now improved to 25 after antibiotics. -continue zosyn -blood cultures pending -can start CLD. -low threshold to transfer is developing clinical signs of decompensation which would need IR drainage of pancreas vs surgical management 2. Alcohol abuse -not currently in withdrawal -CIWA protocol ordered -ordered for MVI, thiamine, folate 3. CAD s/p stent with HTN and HL -continue ome meds of statin, metoprolol -hold lisinopril 4. History of PE -continue eliquis Code: Photography Intern Spent With Patient Critical Care time: I spent a total of [] minutes of critical care time on this patient's care today; this time is exclusive of procedural time.
--- NOTE | 2021-01-02 14:24 | CM.DPC ---
DCP Cont: Per MD, pt's abdominal pain has improved and has been treated for his pancreatitis with now infected necrosis. Pt has remained NPO but will advance pt to clear liquids today to see how he tolerates. Per RN, pt has been voiding but requested bowel regimen. Plan: SW to follow closely for how pt tolerates slowly advancing diet and pt has declined ETOH resources and plan is home with Sig Other when stable. SW to follow for any further identified discharge planning needs. RAJ Byers
[2021-01-02 14:50] LABS: Hepatitis B Surface Antigen NEGATIVE s/c (NEGATIVE)
[2021-01-02 15:09] LABS: HIV 1 & 2 Ab/Ag 4th Gen Combo NEGATIVE (NEGATIVE); Hep C Virus Ab w/Reflex Quant NEGATIVE s/c (NEGATIVE)
[2021-01-02] MEDS: ATORVASTATIN 20 MG TABLET 40 MG PO (20:07)
[2021-01-03] MEDS: PIPERACILLIN/TAZO 4.5 GM in SODIUM CHLORIDE 0.9% 100 ML 25 ML IV ×2 (00:25→08:18)
[2021-01-03 01:55] VITALS: BP 140/89; PULSE 88; RESP 16; TEMP 36.7
[2021-01-03 02:00] VITALS: O2SAT 98
[2021-01-03] MEDS: SODIUM CHLORIDE 0.9% 1,000 ML 150 ML IV (02:29)
[2021-01-03 05:54] LABS: Add Manual Diff / Slide Review NO; Basophils Absolute Auto 0 /uL (0-100); Basophils Percent Auto 0.2 % (0-2); Eosinophils Absolute Auto 600 /uL (0-450); Eosinophils Percent Auto 3.2 % (2-4); Hematocrit 33.5 % (41-53); Lymphocytes Absolute Auto 2400 /uL (1100-4500); Lymphocytes Percent Auto 13.7 % (25-40); Mean Corpuscular HGB Conc 32.8 % (30-36); Mean Corpuscular Hemoglobin 31.7 PG (26-34); Mean Corpuscular Volume 96.6 fL (80-100); Monocytes Absolute Auto 1200 /uL (0-900); Monocytes Percent Auto 6.9 % (3-14); Neutrophils Absolute Auto 13500 /uL (1500-7000); Platelet Count 237 X10^3/uL (150-400); Red Blood Cell Count 3.47 X10^6/uL (4.5-5.9); Red Cell Distribution Width 13.6 % (11.6-14.8); White Blood Cell Count 17.8 X10^3/uL (4.5-11.0)
[2021-01-03 05:56] LABS: Alanine Aminotransferase 30 IU/L (<50); Albumin 3.2 g/dL (3.5-5.0); Alkaline Phosphatase 71 U/L (38-126); Aspartate Aminotransferase 27 IU/L (17-59); BUN Creatinine Ratio 10.6 (6-22); Bilirubin Total 0.8 mg/dL (0.2-1.3); Bilirubin Unconjugated 0.5 mg/dL (0.0-1.1); Blood Urea Nitrogen 10 mg/dL (9-20); Calcium 8.5 mg/dL (8.4-10.2); Carbon Dioxide 26 mmol/L (22-32); Chloride 105 mmol/L (98-107); Estimated Glomerular Filt Rate > 60.0 mL/min (>60); Globulin 3.1 g/dL (1.7-4.1); Glucose 103 mg/dL (70-100); HEMOLYSIS < 15 (0-50); Magnesium 1.9 mg/dL (1.6-2.3); Potassium 3.8 mmol/L (3.4-5.1); Sodium 136 mmol/L (137-145); Total Protein 6.3 g/dL (6.3-8.2)
[2021-01-03 06:00] VITALS: O2SAT 96
[2021-01-03 06:10] VITALS: BP 142/86; PULSE 80; RESP 16; TEMP 36.7; O2SAT 96
[2021-01-03 07:20] VITALS: BP 138/89; PULSE 71; RESP 18; TEMP 35.9; O2SAT 96
[2021-01-03] MEDS: PANTOPRAZOLE 40 MG VIAL IV (08:20)
[2021-01-03] MEDS: MULTIVITAMIN 1 TABLET 1 TAB PO (08:21)
[2021-01-03] MEDS: APIXABAN 5 MG TABLET PO (08:22)
[2021-01-03] MEDS: FOLIC ACID 1 MG TABLET PO (08:22)
[2021-01-03] MEDS: METOPROLOL IR 50 MG TABLET PO (08:22)
[2021-01-03] MEDS: ENOXAPARIN 40 MG/0.4 ML SYRINGE SUBCUT (08:23)
[2021-01-03] MEDS: THIAMINE 100 MG TABLET PO (08:24)
--- NOTE | 2021-01-03 08:50 | PM.DS.1 ---
History of Present Illness History of Present Illness Date Patient Seen: 01/03/21 Time Patient Seen: 08:50 Chief complaint: has hernia, nausea vomiting, pain Narrative: Per Shantel Ardon, [facility]-: Joshua Huston is a 45 male smoker with history of HTN, alcohol abuse, hyperlipidemia, Hx of [place], CAD, and extensive bowel surgeries presents with the chief complaint of relatively sudden onset severe epigastric pain without obvious radiation. Worse with motion and improved with rest. Associated with nausea. No chest pain, SOB, body aches, fever, nausea, vomiting or chills. He has a large known ventral hernia. He's passing gas and had a BM earlier today. Patient drinks significant amount of alcohol daily.? Patient has received a significant amount Dilaudid pain medication in the ED and has been given an additional dose upon admit to the floor and continues to arrives in pain discussed with the patient concerns regarding suppression of his respiratory rate and hypoxia experienced in the ED. The patient was writhing and grimacing in pain yet was found to be quickly calm and responsive when distracted during admit interview. Patient upon admit BP 150/82, HR 84, R 17, O2 saturation a presented patient's WBC is elevated 15 3, neutrophils 8100 lymph 4700, mono 1200, patient's lactate is 2.5, initial lipase 8965, AST 89, ALT 70. CT of abd/pelvis: Extensive inflammatory changes surrounding the 2nd and 3rd portions of the duodenum and head of the pancreas, may be related to duodenitis versus acute pancreatitis.? Correlate with pancreatic enzymes.? Adjacent prominent lymph nodes likely reactive.? No evidence of diverticulitis, bowel obstruction, uropathy or acute appendicitis.? Patient admitted for acute alcohol-induced pancreatitis with leukocytosis. Discharge Providers Provider Date of admission: 12/31/20 04:56 Discharge Date: 01/03/21 Primary care physician: Ulises Weaver MD Discharge provider: Arya De La Cruz DO Summary Hospital Course Discharge Diagnosis: 1.Alcohol-induced acute pancreatitis with possible infected necrosis. 2. Alcohol abuse 3. CAD s/p stent with HTN and HL 4. History of PE Hospital Course: This is a 45-year-old male with a past medical history of hypertension, alcohol abuse, hyperlipidemia, CAD, prior PE who was admitted with epigastric pain secondary to acute pancreatitis secondary to alcohol use. A few days after admission he spiked a very high white blood cell count up to 31,000 with 8% bands. Repeat CT scan showed areas of new necrosis. He was started on IV antibiotics despite lack of fever, and with bowel rest he improved symptomatic leak quite quickly. On hospital day 2 The patient was advanced to clears which he tolerated quite well. On hospital day 3 he was advanced to low-fat diet which he again tolerated. His white blood cell count on antibiotic therapy went [place] [id number]. Given continued improvement, he was discharged on oral antibiotic therapy to complete a course at home though it is not entirely clear if there was infected necrosis or not but the patient continued to improve clinically as noted above. No other medication changes were recommended. Time Spent with Patient Time spent: Greater than 30 minutes Exam Vital Signs (past 8 hours): - 01/03/21 01:55 01/03/21 02:00 01/03/21 06:00 Temperature 98.0 F Pulse Rate 88 Respiratory Rate 16 Blood Pressure 140/89 Pulse Oximetry 98 96 01/03/21 06:10 01/03/21 07:20 Temperature 98.0 F 96.7 F L Pulse Rate 80 71 Respiratory Rate 16 18 Blood Pressure 142/86 H 138/89 Pulse Oximetry 96 96 Oxygen Delivery Method Room Air Oxygen Flow Rate 0 Narrative Exam Narrative: General:? no acute distress, obese male Lungs:? clear bilaterally no wheezing rhonchi or rales. Cardio:? regular rate and rhythm with no murmurs Abdomen:? soft, no distension, non-tender, ventral hernia easily reducible, no rebound/guarding EXT: warm and well perfused with no edema Objective Labs Result Diagrams: 01/03/21 05:25 01/03/21 05:25 Labs: Laboratory Results - last 24 hr 01/02/21 01/02/21 01/02/21 09:05 09:05 09:05 WBC 25.6 H RBC 3.63 L Hgb 11.8 L Hct 34.5 L MCV 95.1 MCH 32.5 MCHC 34.1 RDW 13.5 Plt Count 217 Neut % (Auto) Guyline Operator Lymph % (Auto) Guyline Operator Bates % (Auto) Guyline Operator Eos % (Auto) Guyline Operator Baso % (Auto) Guyline Operator Neut # (Auto) Guyline Operator Lymph # (Auto) Guyline Operator Bates # (Auto) Guyline Operator Eos # (Auto) Guyline Operator Baso # (Auto) Guyline Operator Total Counted 100 Seg Neutrophils % 62.0 Band Neutrophils % 30.0 H Lymphocytes % (Manual) 3.0 L Monocytes % (Manual) 3.0 Eosinophils % (Manual) 2.0 Neutrophils # (Manual) 08466 H RBC Morphology Normal morphology Sodium 132 L Potassium 3.9 Chloride 102 Carbon Dioxide 25 BUN 10 Creatinine 0.86 Estimated GFR > 60.0 BUN/Creatinine Ratio 11.6 Glucose 94 Calcium 8.6 Magnesium 2.1 Total Bilirubin Conjugated Bilirubin Unconjugated Bilirubin AST ALT Alkaline Phosphatase Total Protein Albumin Globulin Albumin/Globulin Ratio Hep Bs Antigen Hepatitis C Antibody HIV 1&2 Ab/P24 Ag 4thGn 01/02/21 01/02/21 01/03/21 11:00 11:00 05:25 WBC 17.8 H RBC 3.47 L Hgb 11.0 L Hct 33.5 L MCV 96.6 MCH 31.7 MCHC 32.8 RDW 13.6 Plt Count 237 Neut % (Auto) 76.0 H Lymph % (Auto) 13.7 L Bates % (Auto) 6.9 Eos % (Auto) 3.2 Baso % (Auto) 0.2 Neut # (Auto) 21061 H Lymph # (Auto) 2400 Bates # (Auto) 1200 H Eos # (Auto) 600 H Baso # (Auto) 0 Total Counted Seg Neutrophils % Band Neutrophils % Lymphocytes % (Manual) Monocytes % (Manual) Eosinophils % (Manual) Neutrophils # (Manual) RBC Morphology Sodium Potassium Chloride Carbon Dioxide BUN Creatinine Estimated GFR BUN/Creatinine Ratio Glucose Calcium Magnesium Total Bilirubin Conjugated Bilirubin Unconjugated Bilirubin AST ALT 35 Alkaline Phosphatase Total Protein Albumin Globulin Albumin/Globulin Ratio Hep Bs Antigen Negative Hepatitis C Antibody Negative HIV 1&2 Ab/P24 Ag 4thGn Negative 01/03/21 05:25 WBC RBC Hgb Hct MCV MCH MCHC RDW Plt Count Neut % (Auto) Lymph % (Auto) Bates % (Auto) Eos % (Auto) Baso % (Auto) Neut # (Auto) Lymph # (Auto) Bates # (Auto) Eos # (Auto) Baso # (Auto) Total Counted Seg Neutrophils % Band Neutrophils % Lymphocytes % (Manual) Monocytes % (Manual) Eosinophils % (Manual) Neutrophils # (Manual) RBC Morphology Sodium 136 L Potassium 3.8 Chloride 105 Carbon Dioxide 26 BUN 10 Creatinine 0.94 Estimated GFR > 60.0 BUN/Creatinine Ratio 10.6 Glucose 103 H Calcium 8.5 Magnesium 1.9 Total Bilirubin 0.8 Conjugated Bilirubin 0.0 Unconjugated Bilirubin 0.5 AST 27 ALT 30 Alkaline Phosphatase 71 Total Protein 6.3 Albumin 3.2 L Globulin 3.1 Albumin/Globulin Ratio 1.0 Hep Bs Antigen Hepatitis C Antibody HIV 1&2 Ab/P24 Ag 4thGn [facility] Medical History (Updated 12/31/20 @ 05:52 by ROCIO Mascorro-MATTHEW) Acute bronchitis Acute [place] Alcohol use disorder Bilateral otitis media Coronary artery disease involving [place] coronary artery of [place] heart without angina pectoris (06/16/16) Cough due to bronchospasm Excessive daytime sleepiness (06/16/16) History of alcohol abuse History of myocardial infarction (06/16/16) Hypertension Nocturnal hypoxia (06/16/16) Tobacco abuse Surgical History (Updated 12/31/20 @ 05:52 by PATRICIA Mascorro) History of intestinal surgery 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 Please avoid any alcohol in the future as this can easily cause a recurrence of your pain. You have have had an infection as a consequence but you improved quickly. Please follow up with your PCP next week for a recheck of your blood work to make sure your white blood cell count is continuing to improve (high of 31K to 17K today). You are being discharged on antibiotics as a precaution. Discharge orders & Medications Prescriptions: New amoxicillin-pot clavulanate 875-125 mg tablet 1 tab PO BID 8 Days Qty: 16 RF: 0 Continued nicotine 14 MG patch 24 hour 14 mg Topical QDAYP PRN (Reason: Smoking Cessation) Qty: 0 RF: 0 nitroglycerin [Nitrostat] 0.4 mg tablet, sublingual 0.4 mg Sublingual Q5M PRN (Reason: chest pain) Qty: 30 RF: 2 metoprolol tartrate 50 mg tablet 100 mg PO DAILY RF: 0 lisinopril 5 MG tablet 10 mg PO DAILY RF: 0 epinephrine [EpiPen 2-Mahnedra] 0.3 MG/0.3 ML auto-injector 0.3 mg IM X1 PRN (Reason: Allergic Reaction) RF: 0 rosuvastatin 40 mg tablet 40 mg PO DAILY RF: 0 Eliquis 5 mg tablet 5 mg PO BID RF: 0 furosemide 20 mg tablet 20 mg PO DAILY RF: 0 Follow up/Referrals: Ulises Weaver MD [Primary Care Provider] - Discharge Health Status Health Concerns: Alcoholic pancreatitis with possible infected necrosis. Diet/Activity/Treatments Diet: Diet as Tolerated and Low-fat Activity: As tolerated Visit Report/Discharge Packet Instructions: DI for Pancreatitis Discharge Data Primary Care Provider: Ulises Weaver
[2021-01-03 10:00] VITALS: O2SAT 96
--- NOTE | 2021-01-03 12:39 | CM.DANOTE ---
Patient discharged home. Accompanied to private vehicle with Brianne, DIABETES MANAGER, and spouse. All discharge instructions and education given, including dietary guidance for Pancreatitis. New e-script sent to pharmacy via MD. Denied any further needs/questions.
[2021-01-04 11:23] LABS: Hepatitis B Surf Ab Qualitativ Non Reactive (.)
== END 2021-01-03 12:40 | disposition home or self-care (01) | DRG 282 ==
LOC: ED 04:39 → AC 04:56
PROVIDERS: Internal Medicine; Admitting Provider Nurse Practitioner Family; Emergency Provider Emergency Medicine; PCP Family Medicine; Referring Provider Emergency Medicine; Visit Provider Nurse Practitioner Family
DX: K85.22 Alcohol induced acute pancreatitis with infected necrosis (principal); F10.10 Alcohol abuse, uncomplicated; I10 Essential (primary) hypertension; I25.10 Atherosclerotic heart disease of native coronary artery without angina pectoris; E78.5 Hyperlipidemia, unspecified; F17.200 Nicotine dependence, unspecified, uncomplicated; Z20.822 Contact with and (suspected) exposure to COVID-19; Z95.5 Presence of coronary angioplasty implant and graft; I25.2 Old myocardial infarction; Z86.711 Personal history of pulmonary embolism; Z79.01 Long term (current) use of anticoagulants
CPT/HCPCS: 36415; 74177; 80048; 80053; 80061; 80076; 82150; 83605; 83690; 83735; 84145; 85007; 85025; 85027; 87040; 87086; 87635; 94760; 96361; 96374; 96375; 96376; 99284; 99285; C9803; C9113; J1170; J1650; J2405; J2543; J3475; Q9967

== ENCOUNTER 2021-01-20 16:18 | Emergency (ER) | payer BC, OTHER, MEDICAID, SELFPAY ==
[2020-12-31 05:45] VITALS: BMI 36.3
[2021-01-20 16:20] VITALS: BP 121/66; PULSE 106; RESP 20; TEMP 36.9; O2SAT 100
[2021-01-20 18:35] LABS: Alanine Aminotransferase 36 IU/L (<50); Albumin 4.5 g/dL (3.5-5.0); Albumin Globulin Ratio 1.2 (1.0-2.8); Alkaline Phosphatase 57 U/L (38-126); Aspartate Aminotransferase 31 IU/L (17-59); BUN Creatinine Ratio 11.7 (6-22); Bilirubin Total 0.6 mg/dL (0.2-1.3); Blood Urea Nitrogen 13 mg/dL (9-20); Carbon Dioxide 28 mmol/L (22-32); Chloride 97 mmol/L (98-107); Estimated Glomerular Filt Rate > 60.0 mL/min (>60); Globulin 3.7 g/dL (1.7-4.1); Glucose 99 mg/dL (70-100); HEMOLYSIS < 15 (0-50); Lipase 1979 U/L (23-300); Potassium 4.6 mmol/L (3.4-5.1); Sodium 135 mmol/L (137-145); Total Protein 8.2 g/dL (6.3-8.2)
[2021-01-20 18:36] LABS: Add Manual Diff / Slide Review NO; Basophils Absolute Auto 200 /uL (0-100); Eosinophils Absolute Auto 500 /uL (0-450); Eosinophils Percent Auto 2.9 % (2-4); Hematocrit 39.6 % (41-53); Hemoglobin 13.7 g/dL (13.5-17.5); Lymphocytes Absolute Auto 3900 /uL (1100-4500); Lymphocytes Percent Auto 22.8 % (25-40); Mean Corpuscular HGB Conc 34.5 % (30-36); Mean Corpuscular Hemoglobin 31.9 PG (26-34); Mean Corpuscular Volume 92.4 fL (80-100); Monocytes Absolute Auto 1100 /uL (0-900); Monocytes Percent Auto 6.4 % (3-14); Neutrophils Absolute Auto 11300 /uL (1500-7000); Neutrophils Percent Auto 66.9 % (50-75); Platelet Count 550 X10^3/uL (150-400); Red Blood Cell Count 4.28 X10^6/uL (4.5-5.9); Red Cell Distribution Width 13.3 % (11.6-14.8); White Blood Cell Count 16.9 X10^3/uL (4.5-11.0)
--- NOTE | 2021-01-20 19:03 | DI.US.S_ITS ---
PROCEDURE: US ABDOMEN LIMITED INDICATIONS: RUQ PAIN TECHNIQUE: Real-time scanning was performed of the abdominal and retroperitoneal organs, with image documentation. COMPARISON: [facility], US, US ABDOMEN COMPLETE, 09/06/2019, 8:05. [facility], CT, CT ABDOMEN PELVIS W CON, 01/01/2021, 13:51. FINDINGS: Liver: Liver is normal in size and demonstrates mildly increased echotexture. Gallbladder: No gallstones. No gallbladder wall thickening, pericholecystic fluid or sonographic Sales's sign. Biliary ducts: Intrahepatic bile ducts are non-dilated. Extrahepatic bile duct caliber measures 4.3 mm. Normal is 6-7 mm or less in diameter, or 10 mm or less post-cholecystectomy. Pancreas: Obscured by overlying bowel gas. Miscellaneous: No free abdominal fluid. IMPRESSION: 1. A cause for right upper quadrant pain is not identified on ultrasound. 2. Diffusely increased hepatic echotexture. This finding is most likely secondary to hepatic fatty infiltration although other hepatocellular disease may have a similar appearance. Recommend clinical correlation. 3. Pancreas obscured by overlying bowel gas. Dictated by: Emory Acevedo M.D. on 01/20/2021 at 21:10 Approved by: Emory Acevedo M.D. on 01/20/2021 at 21:12
--- NOTE | 2021-01-20 19:03 | ED.GENADULT ---
HPI - General Adult General Chief complaint: Abdominal Pain Stated complaint: stomach and right sided pain, hx pancreatitis Time Seen by Provider: 01/20/21 17:56 Source: patient Mode of arrival: Ambulatory History of Present Illness HPI narrative: 45-year-old male. Recent diagnosis of pancreatitis. Here for evaluation of right-sided abdominal discomfort. He states that the discomfort that he is having is different from prior diagnosis pancreatitis. He was told that his prior pancreatitis history was secondary to alcohol. He has not drank for the past 3 weeks. No fevers. He could not get in to see his primary doctor for another couple weeks. No vomiting. No fevers. No change in bowel habits. No urinary symptoms. Related Data Home Medications Medication Instructions Recorded Confirmed nicotine 14 mg/24 hr daily 14 mg TOPICAL QDAYP PRN #0 06/16/16 12/31/20 transdermal patch epinephrine 0.3 mg/0.3 mL 0.3 mg IM X1 PRN 12/31/20 12/31/20 injection, auto-injector (EpiPen 2-Mahendra) lisinopril 5 mg tablet 10 mg PO DAILY 12/31/20 12/31/20 metoprolol tartrate 50 mg tablet 100 mg PO DAILY 12/31/20 01/03/21 apixaban 5 mg tablet (Eliquis) 5 mg PO BID 01/03/21 01/03/21 furosemide 20 mg tablet 20 mg PO DAILY 01/03/21 01/03/21 rosuvastatin 40 mg tablet 40 mg PO DAILY 01/03/21 01/03/21 Previous Rx's Medication Instructions Recorded nitroglycerin 0.4 mg sublingual 0.4 mg SUBLINGUAL Q5M PRN #30 tab 09/03/17 tablet (Nitrostat) Allergies Allergy/AdvReac Type Severity Reaction Status Date / Time codeine [CODEINE] AdvReac Mild ITCHING Unverified 01/01/21 08:46 Review of Systems Constitutional Constitutional: Denies fever(s) Cardiovascular Cardiovascular: Reports system reviewed and no additional complaints, except as documented Respiratory Respiratory: Reports system reviewed and no additional complaints, except as documented Gastrointestinal Gastrointestinal: Reports as per HPI and Reports system reviewed and no additional complaints, except as documented Genitourinary Genitourinary: Reports system reviewed and no additional complaints, except as documented and Reports as per HPI Hematologic/Lymphatic On Anticoagulants: Yes Patient History Medical History Acute bronchitis Acute [place] Alcohol use disorder Bilateral otitis media Coronary artery disease involving [place] coronary artery of [place] heart without angina pectoris (06/16/16) Cough due to bronchospasm Excessive daytime sleepiness (06/16/16) History of alcohol abuse History of myocardial infarction (06/16/16) Hypertension Nocturnal hypoxia (06/16/16) Tobacco abuse Surgical History (Updated 12/31/20 @ 05:52 by PATRICIA Mascorro) History of intestinal surgery 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) Family History Grandmother Age: 55 Breast cancer Social History marital status: unknown household members: significant other Smoking Status: Current every day smoker alcohol intake: current Smoking Status: Current every day smoker alcohol intake frequency: 3 or more drinks per day Substance Use Type: does not use Exam Initial Vital Signs Initial Vital Signs: Vital Signs Temperature 98.4 F 01/20/21 16:20 Pulse Rate 106 H 01/20/21 16:20 Respiratory Rate 20 01/20/21 16:20 Blood Pressure 121/66 01/20/21 16:20 Pulse Oximetry 100 01/20/21 16:20 Const General: cooperative, healthy appearing, comfortable and well developed HENMT Head: normal to inspection and normocephalic Resp Effort & Inspection: normal respiratory effort Auscultation: clear to auscultation bilaterally Cardio Rate: regular rate Rhythm: regular rhythm GI Inspection: normal to inspection Palpation: soft and tender (Right-sided mid abdomen no Sales sign. No left upper quadrant tenderness.) Back/Spine/Pelvis Back: No CVA tenderness Skin General: no rashes or lesions noted Neuro General: patient alert, patient awake and moves all extremities Extrem General: normal to inspection and capillary refill normal Psych Appearance: grossly normal and well kempt Course Orders Ordered: ED Orders 01/20/21 18:18 Complete Blood Count AUTO DIFF Stat Comprehensive Metabolic Panel Stat Lipase Stat 01/20/21 19:03 US abdomen limited Stat Discontinued Medications Hydrocodone Bitart/Acetaminophen (Hydrocodone/Acet 5/325 Prepack) 1 bottle MISC SEEINSTR ONE Stop: 01/20/21 21:25 Last Admin: 01/20/21 21:39 Dose: 1 bottle Documented by: SAVANNAH Vital Signs Vital signs: Vital Signs - 8 hr 01/20/21 21:30 Pulse Rate 84 Respiratory Rate 16 Blood Pressure 120/67 Pulse Oximetry 95 Medical Decision Making Medical Records Medical records reviewed: Yes I reviewed the patient's medical records. Lab Data Lab results reviewed: Yes I reviewed the patient's lab results. Result diagrams: 01/20/21 18:18 01/20/21 18:18 Labs: Lab Results 01/20/21 01/20/21 Range/Units 18:18 18:18 WBC 16.9 H (4.5-11.0) X10^3/uL RBC 4.28 L (4.5-5.9) X10^6/uL Hgb 13.7 (13.5-17.5) g/dL Hct 39.6 L (41-53) % MCV 92.4 (80-100) fL MCH 31.9 (26-34) PG MCHC 34.5 (30-36) % RDW 13.3 (11.6-14.8) % Plt Count 550 H (150-400) X10^3/uL Neut % (Auto) 66.9 (50-75) % Lymph % (Auto) 22.8 L (25-40) % [place] % (Auto) 6.4 (3-14) % Eos % (Auto) 2.9 (2-4) % Baso % (Auto) 1.0 (0-2) % Neut # (Auto) 55455 H (0701-8868) /uL Lymph # (Auto) 3900 (7484-5234) /uL [place] # (Auto) 1100 H (0-900) /uL Eos # (Auto) 500 H (0-450) /uL Baso # (Auto) 200 H (0-100) /uL Sodium 135 L (137-145) mmol/L Potassium 4.6 (3.4-5.1) mmol/L Chloride 97 L (98-107) mmol/L Carbon Dioxide 28 (22-32) mmol/L BUN 13 (9-20) mg/dL Creatinine 1.11 (0.66-1.25) mg/dL Estimated GFR > 60.0 (>60) mL/min BUN/Creatinine Ratio 11.7 (6-22) Glucose 99 (70-100) mg/dL Calcium 10.0 (8.4-10.2) mg/dL Total Bilirubin 0.6 (0.2-1.3) mg/dL AST 31 (17-59) IU/L ALT 36 (<50) IU/L Alkaline Phosphatase 57 (38-126) U/L Total Protein 8.2 (6.3-8.2) g/dL Albumin 4.5 (3.5-5.0) g/dL Globulin 3.7 (1.7-4.1) g/dL Albumin/Globulin Ratio 1.2 (1.0-2.8) Lipase 1979 H (23-300) U/L Urine Dip Bedside Urine Glucose Negative Bedside Urine Bilirubin - Negative Bedside Urine Ketone - Negative Urine Specific [place] 1.025 Bedside Urine Occult Blood - Negative Bedside Urine pH 6.0 Bedside Urine Protein +/- 15 Bedside Urine Urobilinogen - Negative Bedside Urine Nitrite - Negative Bedside Urine Leukocytes - Negative Esterase Point of care testing: Urine Dip Bedside Urine Glucose Negative Bedside Urine Bilirubin - Negative Bedside Urine Ketone - Negative Urine Specific [place] 1.025 Bedside Urine Occult Blood - Negative Bedside Urine pH 6.0 Bedside Urine Protein +/- 15 Bedside Urine Urobilinogen - Negative Bedside Urine Nitrite - Negative Bedside Urine Leukocytes - Negative Esterase Imaging Data US - abdomen: Radiologist's Impression: [place] [address] Ultrasound Report Signed Patient: Joshua Huston MR#: [id number] : 1975 Acct:[id number] Age/Sex: 45 / M Date of Service: 01/20/21 Loc: ED Accession Number: [id number] ?? Procedure: US abdomen limited Ordering Provider: Rolan Dominguez D.O. PROCEDURE:? US ABDOMEN LIMITED ? INDICATIONS:? RUQ PAIN ? TECHNIQUE:? Real-time scanning was performed of the abdominal and retroperitoneal organs, with image documentation.? ? COMPARISON:? [facility], US, US ABDOMEN COMPLETE, 09/06/2019, 8:05.? [facility], CT, CT ABDOMEN PELVIS W CON, 01/01/2021, 13:51. ? FINDINGS:? ? Liver:? Liver is normal in size and demonstrates mildly increased echotexture.? ? Gallbladder:? No gallstones. No gallbladder wall thickening, pericholecystic fluid or sonographic Sales's sign.? ? Biliary ducts:? Intrahepatic bile ducts are non-dilated.? Extrahepatic bile duct caliber measures 4.3 mm.? Normal is 6-7 mm or less in diameter, or 10 mm or less post-cholecystectomy.? ? Pancreas:? Obscured by overlying bowel gas.? ? Miscellaneous:? No free abdominal fluid.? ? ? IMPRESSION:? ? 1. A cause for right upper quadrant pain is not identified on ultrasound. ? 2.? Diffusely increased hepatic echotexture. This finding is most likely secondary to hepatic fatty infiltration although other hepatocellular disease may have a similar appearance. Recommend clinical correlation. ? 3. Pancreas obscured by overlying bowel gas.? Dictated by: Emory Acevedo M.D. on 01/20/2021 at 21:10 ? ? Approved by: Emory Acevedo M.D. on 01/20/2021 at 21:12?? MDM Narrative Medical decision making narrative: Patient is afebrile. Was initially tachycardic in triage but this improved without any intervention. Does have a leukocytosis. His lipase is elevated but is actually improved from when he was admitted for pancreatitis. Informed him that I am unsure as to whether not this lipase his decreasing from his recent admission or potentially increasing. He expressed understanding of this. He has no left upper quadrant tenderness. He states that his abdominal discomfort that he has today is different than his prior diagnosis pancreatitis. He does have right upper quadrant pain. No Sales sign. Right upper quadrant ultrasound is unremarkable. His LFTs are unremarkable. Low suspicion for gallstone pathology. He does not have any right lower quadrant tenderness. Considered other intra-abdominal etiologies such as appendicitis however given how well he appears come his improvement in vital signs, his abdominal discomfort that I feel we should hold on a CT scan for now. I discussed all this with the patient. He expressed understanding and agreement. He was given strict return precautions. Discharge Plan Departure Patient Disposition: Home Clinical Impression: Abdominal pain, Elevated lipase Instructions: DI for Abdominal Pain-Adult Activity Restrictions/Additional Instructions: Your lipase today was slightly elevated. This is the enzyme that is associated with your pancreas. Even though it is elevated today it is lower than what it was a couple days ago. Your ultrasound of the gallbladder was unremarkable. Recommend that you eat a bland diet or even just a clear liquid diet for the next couple days. If your symptoms worsen or if you develop fevers please return to the emergency department for further evaluation. Prescriptions: No Action nicotine 14 MG patch 24 hour 14 mg Topical QDAYP PRN (Reason: Smoking Cessation) Qty: 0 RF: 0 nitroglycerin [Nitrostat] 0.4 mg tablet, sublingual 0.4 mg Sublingual Q5M PRN (Reason: chest pain) Qty: 30 RF: 2 metoprolol tartrate 50 mg tablet 100 mg PO DAILY RF: 0 lisinopril 5 MG tablet 10 mg PO DAILY RF: 0 epinephrine [EpiPen 2-Mahendra] 0.3 MG/0.3 ML auto-injector 0.3 mg IM X1 PRN (Reason: Allergic Reaction) RF: 0 rosuvastatin 40 mg tablet 40 mg PO DAILY RF: 0 Eliquis 5 mg tablet 5 mg PO BID RF: 0 furosemide 20 mg tablet 20 mg PO DAILY RF: 0 Referrals: Ulises Weaver MD [Primary Care Provider] - Stand Alone Forms: Work Release Note
[2021-01-20 21:30] VITALS: BP 120/67; PULSE 84; RESP 16; O2SAT 95
[2021-01-20] MEDS: HYDROCODONE/ACET 5/325 PREPACK 1 BOTTLE MISC (21:39)
== END 2021-01-20 21:42 | disposition home or self-care (01) ==
PROVIDERS: Emergency Medicine; Emergency Provider Emergency Medicine; PCP Family Medicine
DX: R10.11 Right upper quadrant pain (principal); R74.8 Abnormal levels of other serum enzymes; K85.90 Acute pancreatitis without necrosis or infection, unspecified
CPT/HCPCS: 36415; 76705; 80053; 81003; 83690; 85025; 99283; 99284

== ENCOUNTER 2021-05-05 04:51 | Emergency (ER) | payer BC, OTHER, SELFPAY ==
[2020-12-31 05:45] VITALS: BMI 36.3
[2021-05-05 05:05] VITALS: BP 160/91; PULSE 88; RESP 18; TEMP 36.6; O2SAT 96; BMI 38.7
[2021-05-05] MEDS: SODIUM CHLORIDE 0.9% 1,000 ML 1000 ML IV (05:45)
[2021-05-05 05:54] LABS: Alanine Aminotransferase 39 IU/L (<50); Albumin 4.7 g/dL (3.5-5.0); Albumin Globulin Ratio 1.3 (1.0-2.8); Alkaline Phosphatase 64 U/L (38-126); Aspartate Aminotransferase 36 IU/L (17-59); BUN Creatinine Ratio 25.8 (6-22); Bilirubin Total 0.4 mg/dL (0.2-1.3); Blood Urea Nitrogen 31 mg/dL (9-20); Calcium 9.8 mg/dL (8.4-10.2); Carbon Dioxide 25 mmol/L (22-32); Chloride 105 mmol/L (98-107); Estimated Glomerular Filt Rate > 60.0 mL/min (>60); Globulin 3.5 g/dL (1.7-4.1); Glucose 118 mg/dL (70-100); HEMOLYSIS < 15 (0-50); Potassium 4.3 mmol/L (3.4-5.1); Sodium 140 mmol/L (137-145); Total Protein 8.2 g/dL (6.3-8.2)
[2021-05-05 05:55] LABS: Add Manual Diff / Slide Review NO; Basophils Absolute Auto 100 /uL (0-100); Basophils Percent Auto 0.7 % (0-2); Eosinophils Absolute Auto 300 /uL (0-450); Eosinophils Percent Auto 2.3 % (2-4); Hematocrit 42.4 % (41-53); Hemoglobin 14.5 g/dL (13.5-17.5); Lymphocytes Absolute Auto 4800 /uL (1100-4500); Lymphocytes Percent Auto 37.4 % (25-40); Mean Corpuscular HGB Conc 34.2 % (30-36); Mean Corpuscular Hemoglobin 30.3 PG (26-34); Mean Corpuscular Volume 88.7 fL (80-100); Monocytes Absolute Auto 1000 /uL (0-900); Monocytes Percent Auto 7.6 % (3-14); Neutrophils Absolute Auto 6600 /uL (1500-7000); Platelet Count 295 X10^3/uL (150-400); Red Blood Cell Count 4.78 X10^6/uL (4.5-5.9); Red Cell Distribution Width 15.3 % (11.6-14.8); White Blood Cell Count 12.7 X10^3/uL (4.5-11.0)
[2021-05-05 06:01] LABS: Lipase 2718 U/L (23-300)
--- NOTE | 2021-05-05 06:06 | ED_ITS ---
HPI - General Adult <Amada Garcia MD - Last Filed: 05/05/21 18:33> General Chief complaint: Abdominal Pain Stated complaint: pancreatitis flare up Time Seen by Provider: 05/05/21 06:05 Source: patient Mode of arrival: Ambulatory History of Present Illness HPI narrative: 46-year-old gentleman with a history of recurrent pancreatitis with most recent hospitalization in December of 2020, history of coronary artery disease, multiple bowel surgeries, hypertension and alcohol use disorder presents with left upper quadrant and epigastric pain and he is concerned that his alcohol use this weekend as exacerbated his pancreatitis. In the past he has had mild exacerbations and has worked pass them with 2-3 days of a clear liquid diet at home. Was having difficulty sleeping over the course of the night and comes in today for further evaluation. He denies fevers, cough, chills. He does note that he had some emesis yesterday but he has been able to eat up until last night. He denies any lower abdominal pain, diarrhea or constipation. He has had no chest pain or palpitations. No headaches. Related Data Home Medications Medication Instructions Recorded Confirmed nicotine 14 mg/24 hr daily 14 mg TOPICAL QDAYP PRN #0 06/16/16 12/31/20 transdermal patch epinephrine 0.3 mg/0.3 mL 0.3 mg IM X1 PRN 12/31/20 12/31/20 injection, auto-injector (EpiPen 2-Mahendra) lisinopril 5 mg tablet 10 mg PO DAILY 12/31/20 12/31/20 metoprolol tartrate 50 mg tablet 100 mg PO DAILY 12/31/20 01/03/21 apixaban 5 mg tablet (Eliquis) 5 mg PO BID 01/03/21 01/03/21 furosemide 20 mg tablet 20 mg PO DAILY 01/03/21 01/03/21 rosuvastatin 40 mg tablet 40 mg PO DAILY 01/03/21 01/03/21 Previous Rx's Medication Instructions Recorded nitroglycerin 0.4 mg sublingual 0.4 mg SUBLINGUAL Q5M PRN #30 tab 09/03/17 tablet (Nitrostat) ondansetron 4 mg disintegrating 4 mg PO TID-QID PRN #10 tab 05/05/21 tablet Allergies Allergy/AdvReac Type Severity Reaction Status Date / Time codeine [CODEINE] AdvReac Mild ITCHING Verified 05/05/21 05:39 Review of Systems <Amada Garcia MD - Last Filed: 05/05/21 18:33> Review of Systems Narrative: Remainder of complete review of systems is otherwise unremarkable except for that included in the HPI. 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) Family History Grandmother Age: 56 Breast cancer Social History marital status: unknown household members: significant other Smoking Status: Current every day smoker alcohol intake: current Smoking Status: Current every day smoker alcohol intake frequency: 3 or more drinks per day Substance Use Type: does not use Exam <Amada Garcia MD - Last Filed: 05/05/21 18:33> Initial Vital Signs Initial Vital Signs: Vital Signs Temperature 97.8 F 05/05/21 05:05 Pulse Rate 88 05/05/21 05:05 Respiratory Rate 18 05/05/21 05:05 Blood Pressure 160/91 H 05/05/21 05:05 Pulse Oximetry 96 05/05/21 05:05 General: Healthy appearing, in no acute distress. Able to give a complete and coherent history. Well-nourished well-developed HEENT: Moist mucous membranes, normal sclera with reactive pupils, Neck: No JVD, supple Respiratory: Lungs are clear to auscultation, no wheezing no rales no rhonchi. Full and symmetrical air movement Cardiac: Regular rate and rhythm no murmurs no bruits Abdomen: Soft, mildly tender in the epigastrium and left upper quadrant without rebound or guarding, good bowel tones, no flank pain Skin: Warm and dry, no rashes Neurologic: Grossly neurologically intact with no obvious asymmetries or abnormalities Extremities: No trauma, well perfused Psych: Cooperative, appropriate insight and affect <Josh Ponce DO - Last Filed: 05/05/21 09:07> Initial Vital Signs Initial Vital Signs: Vital Signs Temperature 97.8 F 05/05/21 05:05 Pulse Rate 88 05/05/21 05:05 Respiratory Rate 18 05/05/21 05:05 Blood Pressure 160/91 H 05/05/21 05:05 Pulse Oximetry 96 05/05/21 05:05 Course <Amada Garcia MD - Last Filed: 05/05/21 18:33> Orders Ordered: Discontinued Medications Sodium Chloride (Normal Saline 0.9%) 1,000 mls @ 1,000 mls/hr IV BOLUS ONE Stop: 05/05/21 06:41 Last Infusion: 05/05/21 07:03 Dose: 0 mls/hr Documented by: Admin: 05/05/21 05:45 Dose: 1,000 mls/hr Documented by: LEFTY Ondansetron HCl (Ondansetron 4 Mg/2 Ml Inj) 4 mg IV NOW ONE Stop: 05/05/21 06:32 Last Admin: 05/05/21 06:58 Dose: 4 mg Documented by: LEFTY Vital Signs Vital signs: Vital Signs - 8 hr 05/05/21 05:05 05/05/21 06:07 05/05/21 06:30 Temperature 97.8 F Pulse Rate 88 73 79 Respiratory Rate 18 18 Blood Pressure 160/91 H 140/80 Pulse Oximetry 96 93 93 05/05/21 07:00 05/05/21 07:30 05/05/21 09:02 Temperature Pulse Rate 83 86 83 Respiratory Rate 18 18 Blood Pressure 166/93 H 164/91 H 161/99 H Pulse Oximetry 95 94 95 <Josh Ponce DO - Last Filed: 05/05/21 09:07> Orders Ordered: Discontinued Medications Sodium Chloride (Normal Saline 0.9%) 1,000 mls @ 1,000 mls/hr IV BOLUS ONE Stop: 05/05/21 06:41 Last Infusion: 05/05/21 07:03 Dose: 0 mls/hr Documented by: Admin: 05/05/21 05:45 Dose: 1,000 mls/hr Documented by: LEFTY Ondansetron HCl (Ondansetron 4 Mg/2 Ml Inj) 4 mg IV NOW ONE Stop: 05/05/21 06:32 Last Admin: 05/05/21 06:58 Dose: 4 mg Documented by: LEFTY Vital Signs Vital signs: Vital Signs - 8 hr 05/05/21 05:05 05/05/21 06:07 05/05/21 06:30 Temperature 97.8 F Pulse Rate 88 73 79 Respiratory Rate 18 18 Blood Pressure 160/91 H 140/80 Pulse Oximetry 96 93 93 05/05/21 07:00 05/05/21 07:30 05/05/21 09:02 Temperature Pulse Rate 83 86 83 Respiratory Rate 18 18 Blood Pressure 166/93 H 164/91 H 161/99 H Pulse Oximetry 95 94 95 Medical Decision Making <Amada Garcia MD - Last Filed: 05/05/21 18:33> Lab Data Result diagrams: 05/05/21 05:30 05/05/21 05:30 Labs: Lab Results 05/05/21 05/05/21 Range/Units 05:30 05:30 WBC 12.7 H (4.5-11.0) X10^3/uL RBC 4.78 (4.5-5.9) X10^6/uL Hgb 14.5 (13.5-17.5) g/dL Hct 42.4 (41-53) % MCV 88.7 (80-100) fL MCH 30.3 (26-34) PG MCHC 34.2 (30-36) % RDW 15.3 H (11.6-14.8) % Plt Count 295 (150-400) X10^3/uL Neut % (Auto) 52.0 (50-75) % Lymph % (Auto) 37.4 (25-40) % Gaines % (Auto) 7.6 (3-14) % Eos % (Auto) 2.3 (2-4) % Baso % (Auto) 0.7 (0-2) % Neut # (Auto) 6600 (2270-4782) /uL Lymph # (Auto) 4800 H (7830-6474) /uL Gaines # (Auto) 1000 H (0-900) /uL Eos # (Auto) 300 (0-450) /uL Baso # (Auto) 100 (0-100) /uL Sodium 140 (137-145) mmol/L Potassium 4.3 (3.4-5.1) mmol/L Chloride 105 (98-107) mmol/L Carbon Dioxide 25 (22-32) mmol/L BUN 31 H (9-20) mg/dL Creatinine 1.20 (0.66-1.25) mg/dL Estimated GFR > 60.0 (>60) mL/min BUN/Creatinine Ratio 25.8 H (6-22) Glucose 118 H (70-100) mg/dL Calcium 9.8 (8.4-10.2) mg/dL Total Bilirubin 0.4 (0.2-1.3) mg/dL AST 36 (17-59) IU/L ALT 39 (<50) IU/L Alkaline Phosphatase 64 (38-126) U/L Total Protein 8.2 (6.3-8.2) g/dL Albumin 4.7 (3.5-5.0) g/dL Globulin 3.5 (1.7-4.1) g/dL Albumin/Globulin Ratio 1.3 (1.0-2.8) Lipase 2718 H (23-300) U/L [facility] Narrative Medical decision making narrative: 46-year-old gentleman with elevated lipase and clinical presentation consistent with recurrent pancreatitis. With his episode that required hospitalization back in December ended up spiking a fever and there is significant concerns for infected necrotizing pancreatitis. He was treated with antibiotics at that time. Comes in today requesting help with antibiotics, pain medication and discharged home. Explained to him that I was not comfortable with discharging him home with narcotic pain medication however if he did want to given a trial of clear liquid diet I would be happy to provide some Zofran. He has had some success with using ibuprofen and Tylenol in the past. Given lack of fever and normal white blood cell count even with his surgical Kristian blood me a there is no indication for antibiotics at this time and I share that with him as well. My recommendation was for hospitalization and he has declined this time and re quests help with a trial of outpatient treatment. He is given a L of fluid in the emergency department he is hemodynamically stable, showing no signs of sepsis, pain appears to be relatively mild as he is moving without pain behaviors or difficulty. We had a discussion regarding his alcohol use and he clearly understands that the alcohol use dramatically exacerbates his pancreatitis. At this time he is safe for home discharge and I have encouraged him to have a very low threshold for returning to the emergency department. <Josh Ponce, DO - Last Filed: 05/05/21 09:07> Lab Data Labs: Lab Results 05/05/21 05/05/21 Range/Units 05:30 05:30 WBC 12.7 H (4.5-11.0) X10^3/uL RBC 4.78 (4.5-5.9) X10^6/uL Hgb 14.5 (13.5-17.5) g/dL Hct 42.4 (41-53) % MCV 88.7 (80-100) fL MCH 30.3 (26-34) PG MCHC 34.2 (30-36) % RDW 15.3 H (11.6-14.8) % Plt Count 295 (150-400) X10^3/uL Neut % (Auto) 52.0 (50-75) % Lymph % (Auto) 37.4 (25-40) % Gaines % (Auto) 7.6 (3-14) % Eos % (Auto) 2.3 (2-4) % Baso % (Auto) 0.7 (0-2) % Neut # (Auto) 6600 (5070-1829) /uL Lymph # (Auto) 4800 H (5416-9455) /uL Gaines # (Auto) 1000 H (0-900) /uL Eos # (Auto) 300 (0-450) /uL Baso # (Auto) 100 (0-100) /uL Sodium 140 (137-145) mmol/L Potassium 4.3 (3.4-5.1) mmol/L Chloride 105 (98-107) mmol/L Carbon Dioxide 25 (22-32) mmol/L BUN 31 H (9-20) mg/dL Creatinine 1.20 (0.66-1.25) mg/dL Estimated GFR > 60.0 (>60) mL/min BUN/Creatinine Ratio 25.8 H (6-22) Glucose 118 H (70-100) mg/dL Calcium 9.8 (8.4-10.2) mg/dL Total Bilirubin 0.4 (0.2-1.3) mg/dL AST 36 (17-59) IU/L ALT 39 (<50) IU/L Alkaline Phosphatase 64 (38-126) U/L Total Protein 8.2 (6.3-8.2) g/dL Albumin 4.7 (3.5-5.0) g/dL Globulin 3.5 (1.7-4.1) g/dL Albumin/Globulin Ratio 1.3 (1.0-2.8) Lipase 2718 H (23-300) U/L [facility] Narrative Medical decision making narrative: 46-year-old gentleman with elevated lipase and clinical presentation consistent with recurrent pancreatitis. With his episode that required hospitalization back in December ended up spiking a fever and there is significant concerns for infected necrotizing pancreatitis. He was treated with antibiotics at that time. Comes in today requesting help with antibiotics, pain medication and discharged home. Explained to him that I was not comfortable with discharging him home with narcotic pain medication however if he did want to given a trial of clear liquid diet I would be happy to provide some Zofran. He has had some success with using ibuprofen and Tylenol in the past. Given lack of fever and normal white blood cell count even with his surgical Kristian blood me a there is no indication for antibiotics at this time and I share that with him as well. My recommendation was for hospitalization and he has declined this time and requests help with a trial of outpatient treatment. He is given a L of fluid in the emergency department he is hemodynamically stable, showing no signs of sepsis, pain appears to be relatively mild as he is moving without pain behaviors or difficulty. We had a discussion regarding his alcohol use and he clearly understands that the alcohol use dramatically exacerbates his pancreatitis. At this time he is safe for home discharge and I have encouraged him to have a very low threshold for returning to the emergency department. 0700 (CUrran) patient received in sign-out from Dr. Garcia. I have reviewed clinical information up into this point and performed an independent history and physical exam. Patient's pain is well tolerated, he is tolerating oral hydration. There is no sign of infection, imaging and or antibiotics are not clinically indicated at this point time. Again discussed possible admission with the patient but given how well he feels he prefers to go home and ?give it a shot ?. We have had extensive discussion about return precautions and his questions have been answered to his apparent satisfaction Discharge Plan Departure Patient Disposition: Home Clinical Impression: Pancreatitis Instructions: DI for Pancreatitis Activity Restrictions/Additional Instructions: *You have been diagnosed with [acute abdominal pain due to pancreatitis. As we discussed your labs demonstrate a lipase which is quite elevated and reasonable to consider admission into the hospital, however your ability to keep fluids down is reassuring. Also, as we discussed there is no sign the antibiotics would be indicated. *What to do: *Please continue to take your regular medications as directed. [ x] New medication prescriptions sent to your pharmacy: [[facility] in [place] ] [ ] New medication written as a paper prescription [ ] No new medications given *Please follow up with your primary care provider in 2-3 days, call for an appointment. Let them know you were seen in the Emergency Department and that we ask that you be seen in follow up. We will electronically transmit a record of today's note if your PCP is in our system * clear liquids for the next 24-48 hours *Return to Emergency Department if you should have any new, worsening or concerning symptoms, such as [fever greater than 101 F, shaking chills, worsening pain, persistent vomiting or other bothersome symptoms] Prescriptions: New ondansetron 4 mg tablet,disintegrating 4 mg PO TID-QID PRN (Reason: nausea and vomiting) Qty: 10 0RF No Action nicotine 14 MG patch 24 hour 14 mg Topical QDAYP PRN (Reason: Smoking Cessation) Qty: 0 0RF nitroglycerin [Nitrostat] 0.4 mg tablet, sublingual 0.4 mg Sublingual Q5M PRN (Reason: chest pain) Qty: 30 2RF metoprolol tartrate 50 mg tablet 100 mg PO DAILY 0RF lisinopril 5 MG tablet 10 mg PO DAILY 0RF epinephrine [EpiPen 2-Mahendra] 0.3 MG/0.3 ML auto-injector 0.3 mg IM X1 PRN (Reason: Allergic Reaction) 0RF rosuvastatin 40 mg tablet 40 mg PO DAILY 0RF Eliquis 5 mg tablet 5 mg PO BID 0RF furosemide 20 mg tablet 20 mg PO DAILY 0RF Referrals: Ulises Weaver MD [Primary Care Provider] -
[2021-05-05 06:07] VITALS: PULSE 73; O2SAT 93
[2021-05-05 06:30] VITALS: BP 140/80; PULSE 79; RESP 18; O2SAT 93
[2021-05-05] MEDS: ONDANSETRON 4 MG/2 ML INJ IV (06:58)
[2021-05-05 07:00] VITALS: BP 166/93; PULSE 83; RESP 18; O2SAT 95
[2021-05-05 07:30] VITALS: BP 164/91; PULSE 86; RESP 18; O2SAT 94
[2021-05-05 09:02] VITALS: BP 161/99; PULSE 83; O2SAT 95
== END 2021-05-05 09:03 | disposition home or self-care (01) ==
PROVIDERS: Emergency Medicine; Emergency Provider Emergency Medicine; PCP Family Medicine
DX: K85.90 Acute pancreatitis without necrosis or infection, unspecified (principal); F17.200 Nicotine dependence, unspecified, uncomplicated
CPT/HCPCS: 36415; 80053; 83690; 85025; 96361; 96374; 99284; J2405

== ENCOUNTER 2022-12-22 10:05 | Emergency (ER) | payer BC, SELFPAY ==
[2020-12-31 05:45] VITALS: BMI 36.3
[2022-12-22] VITALS (8 sets, daily range): BP systolic 162–189; BP diastolic 78–113; PULSE 83–92; RESP 16–27; TEMP 36.8; O2SAT 95–98; BMI 43.0
[2022-12-22] MEDS: ONDANSETRON 4 MG/2 ML INJ IV (10:30)
--- NOTE | 2022-12-22 10:34 | DI.CT.S_ITS ---
PROCEDURE: CT ABDOMEN PELVIS W CON INDICATIONS: N/V/MIDEPIGASTRIC ABD PAIN, HX PANCREATITIS TECHNIQUE: After the administration of intravenous contrast, axial sections acquired from the lung bases to the pubic symphysis. Coronal and sagittal reformats were performed. For radiation dose reduction, the following was used: automated exposure control, adjustment of mA and/or kV according to patient size. COMPARISON: [facility], CT, CT ABDOMEN PELVIS W CON, 01/01/2021, 13:51. [facility], CT, CT ABDOMEN PELVIS W CON, 12/31/2020, 1:52. FINDINGS: Image quality: Excellent. Lung bases: Stable round atelectasis at the left lower lobe.. Heart: No significant findings. ABDOMEN: Liver: Liver is mildly hypoattenuating compatible with fatty infiltration. Gallbladder: No radiopaque gallstones. Biliary ducts: Unremarkable. Pancreas: Peripancreatic edema and fluid are seen suspicious for acute pancreatitis. The pancreas enhances normally without signs of necrosis. No pancreatic ductal dilatation. Bowel wall thickening in the adjacent duodenum is likely reactive. No well-formed peripancreatic fluid collection. Spleen: Status post splenectomy. Adrenal Glands: Unremarkable. Kidneys and Ureters: Unremarkable. Stomach and Bowel: Stomach, small bowel loops, and colon are unremarkable. Peritoneum: No abnormal intraperitoneal fluid. No free air. Ventral Wall: Fat containing ventral hernia is seen. Abdominal Nodes: No retroperitoneal or mesenteric adenopathy by size criteria. Vessels: Aorta and inferior vena cava are normal in size. PELVIS: Pelvic Organs: Unremarkable. Bladder: Unremarkable. Pelvic Nodes: No enlarged lymph nodes. Miscellaneous: No hernias are seen. Bones: Old healed left posterior rib fractures. IMPRESSION: Peripancreatic edema is is seen consistent with acute pancreatitis. No well-formed peripancreatic fluid collection. No signs of pancreatic necrosis. No radiopaque gallstones. Approved by: Gilbert Lyman M.D. on 12/22/2022 at 12:00
[2022-12-22 10:35] LABS: Add Manual Diff / Slide Review NO; Basophils Absolute Auto 100 /uL (0-100); Basophils Percent Auto 0.4 % (0-2); Eosinophils Absolute Auto 100 /uL (0-450); Eosinophils Percent Auto 0.8 % (2-4); Hematocrit 40.8 % (41-53); Hemoglobin 14.2 g/dL (13.5-17.5); Lymphocytes Absolute Auto 2400 /uL (1100-4500); Lymphocytes Percent Auto 13.5 % (25-40); Mean Corpuscular HGB Conc 34.8 % (30-36); Mean Corpuscular Hemoglobin 32.4 PG (26-34); Monocytes Absolute Auto 1200 /uL (0-900); Monocytes Percent Auto 6.5 % (3-14); Neutrophils Absolute Auto 14300 /uL (1500-7000); Neutrophils Percent Auto 78.8 % (50-75); Platelet Count 209 X10^3/uL (150-400); Red Blood Cell Count 4.38 X10^6/uL (4.5-5.9); Red Cell Distribution Width 14.4 % (11.6-14.8); White Blood Cell Count 18.2 X10^3/uL (4.5-11.0)
[2022-12-22] MEDS: SODIUM CHLORIDE 0.9% 1,000 ML 1000 ML IV (10:44)
[2022-12-22] MEDS: MORPHINE 4 MG/ML INJ IV (10:44)
[2022-12-22 10:45] LABS: INR 1.2 (0.9-1.3); Prothrombin Time 13.9 SECONDS (10.1-12.7)
[2022-12-22 10:48] LABS: Alanine Aminotransferase 146 IU/L (<50); Albumin 4.4 g/dL (3.5-5.0); Albumin Globulin Ratio 1.3 (1.0-2.8); Alkaline Phosphatase 75 U/L (38-126); Aspartate Aminotransferase 150 IU/L (17-59); BUN Creatinine Ratio 14.7 (6-22); Bilirubin Total 1.5 mg/dL (0.2-1.3); Blood Urea Nitrogen 15 mg/dL (9-20); Calcium 9.6 mg/dL (8.4-10.2); Carbon Dioxide 21 mmol/L (22-32); Chloride 100 mmol/L (98-107); Estimated Glomerular Filt Rate > 60 mL/min (>60); Globulin 3.5 g/dL (1.7-4.1); Glucose 142 mg/dL (70-100); HEMOLYSIS < 15 (0-50); Potassium 3.5 mmol/L (3.4-5.1); Sodium 132 mmol/L (137-145); Total Protein 7.9 g/dL (6.3-8.2)
--- NOTE | 2022-12-22 10:52 | ED.ABDPAIN ---
HPI - Abdominal Pain General Chief Complaint: Abdominal Pain Stated Complaint: ABD pain, HX of pancreatitis Time Seen by Provider: 12/22/22 10:19 Source: patient Mode of arrival: Ambulatory History of Present Illness HPI narrative: 47-year-old male with history of alcohol use disorder, blood clotting disorder on Eliquis, CAD, HTN, HLD, tobacco abuse presents for 1 day of midepigastric abdominal pain that radiates to the back. Patient states that he has a history of alcohol-induced pancreatitis and this feels similar. Patient states that he has significantly decrease his alcohol intake since his last pancreatitis flare several years ago, however last week he went to [place] and ?went overboard?. Last drink 36 hours ago. Related Data Home Medications Medication Instructions Recorded Confirmed nicotine 14 mg/24 hr daily 14 mg topical QDAYP PRN Smoking 06/16/16 12/31/20 transdermal patch Cessation ##0 epinephrine 0.3 mg/0.3 mL 0.3 mg IM X1 PRN Allergic Reaction 12/31/20 12/31/20 injection, auto-injector (EpiPen 2-Mahendra) lisinopril 5 mg tablet 10 mg PO DAILY 12/31/20 12/31/20 metoprolol tartrate 50 mg tablet 100 mg PO DAILY 12/31/20 01/03/21 apixaban 5 mg tablet (Eliquis) 5 mg PO BID 01/03/21 01/03/21 furosemide 20 mg tablet 20 mg PO DAILY 01/03/21 01/03/21 rosuvastatin 40 mg tablet 40 mg PO DAILY 01/03/21 01/03/21 Previous Rx's Medication Instructions Recorded nitroglycerin 0.4 mg sublingual 0.4 mg sublingual Q5M PRN chest 09/03/17 tablet (Nitrostat) pain #30 tabs ondansetron 4 mg disintegrating 4 mg PO TID-QID PRN nausea and 05/05/21 tablet vomiting #10 tabs ondansetron 4 mg disintegrating 4 mg PO Q8H PRN nausea and 12/22/22 tablet vomiting #30 tabs oxycodone 5 mg capsule 5 mg PO Q6H PRN pain #14 caps 12/22/22 Allergies Allergy/AdvReac Type Severity Reaction Status Date / Time codeine [CODEINE] AdvReac Mild ITCHING Verified 12/22/22 10:15 Review of Systems Review of Systems Narrative: CONSTITUTIONAL- Denies: fever, chills, fatigue HEENT- Denies: sore throat, nosebleed, vision changes RESPIRATORY- Denies: shortness of breath, cough, wheezing CARDIAC- Denies: chest pain, edema, orthopnea GI-reports: Nausea, abdominal pain Denies: vomiting, constipation, diarrhea - Denies: frequency, dysuria, hematuria, flank pain MSK- Denies: extremity pain, extremity swelling, joint pain, joint swelling SKIN- Denies: rash, itching, burn, swelling NEUROLOGICAL- Denies: headache, numbness, weakness, dizziness PSYCHIATRIC- Denies: anxiety, depression, suicidal ideation, homicidal ideation Patient History Medical History Acute bronchitis Acute [place] Alcohol use disorder Bilateral otitis media Coronary artery disease involving [place] coronary artery of [place] heart without angina pectoris (06/16/16) Cough due to bronchospasm Excessive daytime sleepiness (06/16/16) History of alcohol abuse History of myocardial infarction (06/16/16) Hypertension Nocturnal hypoxia (06/16/16) Tobacco abuse Surgical History History of intestinal surgery 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) Family History Grandmother Age: 56 Breast cancer Social History marital status: unknown household members: significant other Smoking Status: Current every day smoker alcohol intake: current Smoking Status: Current every day smoker alcohol intake frequency: 3 or more drinks per day Substance Use Type: does not use Exam Initial Vital Signs Initial Vital Signs: Vital Signs Temperature 98.3 F 12/22/22 10:07 Pulse Rate 92 H 12/22/22 10:07 Respiratory Rate 16 12/22/22 10:07 Blood Pressure 186/113 H 12/22/22 10:07 Pulse Oximetry 98 12/22/22 10:07 Oxygen Delivery Method Room Air 12/22/22 10:07 Const: Awake, alert, no acute distress, nontoxic appearing, obese Eyes: PERRL, EOMI, conjunctiva normal ENT: Atraumatic, dentition normal, mucous membranes moist Cardiac: regular rate, regular rhythm RESP: unlabored, clear bilaterally, no wheezing GI: Atraumatic, soft, tenderness to deep palpation without rebound or guarding, nondistended MSK: Atraumatic, full range of motion, pulses equal Skin: Warm, Dry, intact, no rashes Neuro: AO x3, CN II-XII grossly intact, moves all extremities Psych: affect normal, mood normal, not suicidal, not homicidal Course Course Course Narrative: Nontoxic appearing patient with abdominal pain similar to previous episodes of pancreatitis. Patient recently had alcohol binge. Will order labs, pain medications, CT scan Orders Ordered: ED Orders 12/22/22 10:25 Complete Blood Count AUTO DIFF Stat Comprehensive Metabolic Panel Stat Lipase Stat 12/22/22 10:34 CT abdomen pelvis w con Stat 12/22/22 10:35 PT [Prothrombin Time INR] Stat Discontinued Medications Sodium Chloride (Normal Saline 0.9%) 1,000 mls @ 1,000 mls/hr IV BOLUS ONE Stop: 12/22/22 11:34 Last Infusion: 12/22/22 12:08 Dose: 1,000 mls/hr Documented By: Admin: 12/22/22 10:44 Dose: 1,000 mls/hr Documented By: SPF Morphine Sulfate (Morphine 4 Mg/Ml Inj) 4 mg IV NOW ONE Stop: 12/22/22 10:35 Last Admin: 12/22/22 10:44 Dose: 4 mg Documented By: SPF Ondansetron HCl (Ondansetron 4 Mg/2 Ml Inj) 4 mg IV NOW PRN PRN Reason: Nausea And Vomiting Last Admin: 12/22/22 10:30 Dose: 4 mg Documented By: SPF Reevaluation(s) Reevaluation #1: Laboratory work reviewed, patient has mild elevation in liver enzymes, mild elevation in bilirubin. Patient states he is continued to drink multiple 5+ drinks every other day on top of his recent alcohol binge at [place]. Lipase is elevated. CT of the abdomen and pelvis shows pancreatic fluid collection without evidence of necrosis. Patient reassessed, pain is well-controlled and he is tolerating p.o.. Patient informed of all lab and imaging findings, informed of his liver enzymes and CT findings of pancreatitis. Pancreatitis highly likely to have been triggered by patient's alcohol binge. Patient will be discharged on pain medications and antiemetics. He was counseled to follow a clear liquid diet for the next several days and to gradually returned to a normal diet. He was counseled on the importance of returning for repeat evaluation if his pain does not improve or worsens. ED return precautions discussed at bedside. Patient expressed understanding of the plan and is in agreement at this time. All questions answered at the time of discharge. Vital Signs Vital signs: Vital Signs - 8 hr 12/22/22 10:07 12/22/22 10:35 12/22/22 11:00 Temperature 98.3 F Pulse Rate 92 H 91 H Respiratory Rate 16 27 H Blood Pressure 186/113 H 189/98 H Pulse Oximetry 98 95 Oxygen Delivery Method Room Air 12/22/22 11:00 12/22/22 11:30 12/22/22 11:39 Temperature Pulse Rate 84 89 Respiratory Rate 17 19 Blood Pressure 189/93 H Pulse Oximetry 95 98 Oxygen Delivery Method Room Air 12/22/22 11:39 12/22/22 12:00 12/22/22 12:10 Temperature Pulse Rate 87 85 Respiratory Rate 25 H Blood Pressure 162/78 H Pulse Oximetry 98 97 Oxygen Delivery Method Room Air 12/22/22 12:10 12/22/22 12:30 Temperature Pulse Rate 89 83 Respiratory Rate 21 Blood Pressure Pulse Oximetry 98 95 Oxygen Delivery Method MDM - Abdominal Pain Lab Data 12/22/22 10:25 12/22/22 10:25 Labs: Lab Results 12/22/22 12/22/22 12/22/22 Range/Units 10:25 10:25 10:35 WBC 18.2 H (4.5-11.0) X10^3/uL RBC 4.38 L (4.5-5.9) X10^6/uL Hgb 14.2 (13.5-17.5) g/dL Hct 40.8 L (41-53) % MCV 93.0 (80-100) fL MCH 32.4 (26-34) PG MCHC 34.8 (30-36) % RDW 14.4 (11.6-14.8) % Plt Count 209 (150-400) X10^3/uL Neut % (Auto) 78.8 H (50-75) % Lymph % (Auto) 13.5 L (25-40) % [place] % (Auto) 6.5 (3-14) % Eos % (Auto) 0.8 L (2-4) % Baso % (Auto) 0.4 (0-2) % Neut # (Auto) 40129 H (2526-6503) /uL Lymph # (Auto) 2400 (4628-3733) /uL [place] # (Auto) 1200 H (0-900) /uL Eos # (Auto) 100 (0-450) /uL Baso # (Auto) 100 (0-100) /uL PT 13.9 H (10.1-12.7) SECONDS INR 1.2 (0.9-1.3) Sodium 132 L (137-145) mmol/L Potassium 3.5 (3.4-5.1) mmol/L Chloride 100 (98-107) mmol/L Carbon Dioxide 21 L (22-32) mmol/L BUN 15 (9-20) mg/dL Creatinine 1.02 (0.66-1.25) mg/dL Estimated GFR > 60 (>60) mL/min BUN/Creatinine Ratio 14.7 (6-22) Glucose 142 H (70-100) mg/dL Calcium 9.6 (8.4-10.2) mg/dL Total Bilirubin 1.5 H (0.2-1.3) mg/dL AST 150 H (17-59) IU/L ALT 146 H (<50) IU/L Alkaline Phosphatase 75 (38-126) U/L Total Protein 7.9 (6.3-8.2) g/dL Albumin 4.4 (3.5-5.0) g/dL Globulin 3.5 (1.7-4.1) g/dL Albumin/Globulin Ratio 1.3 (1.0-2.8) Lipase 3272 H (23-300) U/L Point of care testing: Urine Dip Bedside Urine Glucose Negative Bedside Urine Bilirubin - Negative Bedside Urine Ketone ++ 40 Urine Specific [place] 1.020 Bedside Urine Occult Blood + Bedside Urine pH 6.0 Bedside Urine Protein ++ 100 Bedside Urine Urobilinogen - Negative Bedside Urine Nitrite - Negative Bedside Urine Leukocytes - Negative Esterase Discharge Plan Departure Patient Disposition: Home Clinical Impression: Pancreatitis, Tobacco abuse, Abdominal pain, Elevated liver enzymes, Morbid obesity Instructions: Clear Liquid Diet, DI for Pancreatitis Activity Restrictions/Additional Instructions: AVOID ALL ALCOHOL USE. SMOKING CESSATION WILL ALSO HELP TO REDUCE PANCREATITIS RISK.FOLLOW UP WITH YOUR PRIMARY CARE PHYSICIAN. IF YOUR PAIN WORSENS DESPITE FOLLOWING A LIQUID DIET AND TAKING PAIN MEDICATIONS PLEASE RETURN FOR REPEAT EVALUATION. YOUR LIVER ENZYMES ARE SLOWLY ELEVATING FROM YOUR PREVIOUS VISITS, THIS IS LIKELY RELATED TO ALCOHOL USE. OXYCODONE MAY CAUSE CONSTIPATION, TAKE A DAILY LAXATIVE TO PREVENT CONSTIPATION. Prescriptions: New oxycodone 5 mg capsule 5 mg PO Q6H PRN (Reason: pain) Qty: 14 0RF ondansetron 4 mg tablet,disintegrating 4 mg PO Q8H PRN (Reason: nausea and vomiting) Qty: 30 0RF No Action nicotine 14 MG patch 24 hour 14 mg Topical QDAYP PRN (Reason: Smoking Cessation) Qty: 0 nitroglycerin [Nitrostat] 0.4 mg tablet, sublingual 0.4 mg Sublingual Q5M PRN (Reason: chest pain) Qty: 30 2RF metoprolol tartrate 50 mg tablet 100 mg PO DAILY lisinopril 5 MG tablet 10 mg PO DAILY epinephrine [EpiPen 2-Mahendra] 0.3 MG/0.3 ML auto-injector 0.3 mg IM X1 PRN (Reason: Allergic Reaction) rosuvastatin 40 mg tablet 40 mg PO DAILY Eliquis 5 mg tablet 5 mg PO BID furosemide 20 mg tablet 20 mg PO DAILY ondansetron 4 mg tablet,disintegrating 4 mg PO TID-QID PRN (Reason: nausea and vomiting) Qty: 10 0RF Referrals: Ulises Weaver MD [Primary Care Provider] - Stand Alone Forms: Patient Portal/API
[2022-12-22 10:55] LABS: Lipase 3272 U/L (23-300)
--- NOTE | 2022-12-22 11:00 | PC.NURSE ---
Abdominal pain constant rating 7/10 radiates to mid back. Patient denies chest, jaw, shoulder, arm pain. Denies SOB. Patient was drinking this past week, denies alcohol in the past 36 hours. He has diarrhea and vomiting but denies blood in stool or emesis.
== END 2022-12-22 12:40 | disposition home or self-care (01) ==
PROVIDERS: Emergency Provider Emergency Medicine; PCP Family Medicine
DX: K85.90 Acute pancreatitis without necrosis or infection, unspecified (principal); R74.8 Abnormal levels of other serum enzymes; R10.13 Epigastric pain; E66.01 Morbid (severe) obesity due to excess calories; Z72.0 Tobacco use
CPT/HCPCS: 36415; 74177; 80053; 81003; 83690; 85025; 85610; J2270; J2405; Q9967

== ENCOUNTER 2022-12-22 20:33 | Inpatient (IN) | payer BC, SELFPAY ==
[2020-12-31 05:45] VITALS: BMI 36.3
[2022-12-22] VITALS (7 sets, daily range): BP systolic 162–168; BP diastolic 92–96; PULSE 89–94; RESP 16–20; TEMP 36.6–37; O2SAT 88–98; BMI 43.0
--- NOTE | 2022-12-22 20:39 | ED_ITS ---
HPI - General Adult General Chief complaint: Abdominal Pain Stated complaint: pancreatitis, states meds not working Time Seen by Provider: 12/22/22 20:38 History of Present Illness HPI narrative: 47-year-old male with history of alcohol use disorder, blood clotting disorder on Eliquis, CAD, HTN, HLD, tobacco abuse presents for the 2nd time today for evaluation severe epigastric pain. He was seen earlier for evaluation of about 24 hours of severe epigastric pain with radiation to his back that seemed to be triggered by some heavy alcohol abuse while on a recent trip to [place]. His labs demonstrated an elevated white blood cell count and a lipase over 3000, CT of the abdomen and pelvis demonstrated peripancreatic edema without evidence of necrosis or fluid collection. His pain was well controlled and he was discharged home with pain medications. He returns stating that the medications are not working, his pain is severe, radiates to the back, he can not eat or drink and feels generally terrible. Related Data Home Medications Medication Instructions Recorded Confirmed nicotine 14 mg/24 hr daily 14 mg topical QDAYP PRN Smoking 06/16/16 12/31/20 transdermal patch Cessation ##0 epinephrine 0.3 mg/0.3 mL 0.3 mg IM X1 PRN Allergic Reaction 12/31/20 12/31/20 injection, auto-injector (EpiPen 2-Mahendra) lisinopril 5 mg tablet 10 mg PO DAILY 12/31/20 12/31/20 metoprolol tartrate 50 mg tablet 100 mg PO DAILY 12/31/20 01/03/21 apixaban 5 mg tablet (Eliquis) 5 mg PO BID 01/03/21 01/03/21 furosemide 20 mg tablet 20 mg PO DAILY 01/03/21 01/03/21 rosuvastatin 40 mg tablet 40 mg PO DAILY 01/03/21 01/03/21 Previous Rx's Medication Instructions Recorded nitroglycerin 0.4 mg sublingual 0.4 mg sublingual Q5M PRN chest 09/03/17 tablet (Nitrostat) pain #30 tabs ondansetron 4 mg disintegrating 4 mg PO TID-QID PRN nausea and 05/05/21 tablet vomiting #10 tabs ondansetron 4 mg disintegrating 4 mg PO Q8H PRN nausea and 12/22/22 tablet vomiting #30 tabs oxycodone 5 mg capsule 5 mg PO Q6H PRN pain #14 caps 12/22/22 Allergies Allergy/AdvReac Type Severity Reaction Status Date / Time codeine [CODEINE] AdvReac Mild ITCHING Verified 12/22/22 20:40 Review of Systems Review of Systems Narrative: GENERAL: Denies chills, fatigue, malaise, fever, sweats. HEENT: Denies sinus pain, ear pain, sore throat, difficulty swallowing, dizziness. RESPIRATORY: Denies dyspnea, cough, wheezing, hemoptysis, sputum. CARDIOVASCULAR: Denies chest pain, palpitations, orthopnea, edema, GASTROINTESTINAL: See HPI : Denies dysuria, frequency, incontinence, hematuria, urinary retention. MUSCULOSKELETAL: denies weakness, joint pain, or bony pain SKIN: Denies rash, skin lesions, or other NEUROLOGIC: Denies weakness, headache, numbness, change in speech, confusion, seizures, incoordination. PSYCHIATRIC: No concerning psychosocial issues. 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 Well-developed patient, in obvious distress. HEAD: Atraumatic. Normocephalic. EYES: Pupils equal round and reactive. Extraocular motions intact. No scleral icterus. No injection or drainage. ENT: Nose without bleeding, purulent drainage. Throat without erythema, tonsillar hypertrophy or exudate. Airway patent. NECK: Trachea midline. Non tender CARDIOVASCULAR: Regular rate and rhythm without murmurs, gallops, or rubs. RESPIRATORY: Clear to auscultation. Breath sounds equal bilaterally. No wheezes, rales, or rhonchi. GASTROINTESTINAL: Abdomen soft, tender in the epigastrium, nondistended. EXTREMITIES: No edema or joint tenderness. BACK: Nontender without deformity or crepitance. No flank tenderness. NEURO: AOx3. SKIN: No rash or erythema of visible areas Initial Vital Signs Initial Vital Signs: Vital Signs Temperature 98.6 F 12/22/22 20:37 Pulse Rate 92 H 12/22/22 20:37 Respiratory Rate 17 12/22/22 20:37 Blood Pressure 168/92 H 12/22/22 20:37 Pulse Oximetry 98 12/22/22 20:37 Oxygen Delivery Method Room Air 12/22/22 20:37 Course Orders Ordered: ED Orders 12/22/22 20:52 Complete Blood Count AUTO DIFF Stat Comprehensive Metabolic Panel Stat Lipase Stat Magnesium Stat Discontinued Medications Hydromorphone HCl (Hydromorphone 1 Mg Inj) 1 mg IV NOW ONE Stop: 12/22/22 20:40 Last Admin: 12/22/22 20:49 Dose: 1 mg Documented By: NATHAN Sodium Chloride (Normal Saline 0.9%) 1,000 mls @ 1,000 mls/hr IV BOLUS ONE Stop: 12/22/22 21:38 Last Admin: 12/22/22 20:49 Dose: 1,000 mls/hr Documented By: NATHAN Pantoprazole Sodium (Pantoprazole 40 Mg Vial) 40 mg IV NOW ONE Stop: 12/22/22 20:40 Last Admin: 12/22/22 20:49 Dose: 40 mg Documented By: NATHAN Reevaluation(s) Reevaluation #1: Patient feeling improvement after Dilaudid Vital Signs Vital signs: Vital Signs - 8 hr 12/22/22 20:37 Temperature 98.6 F Pulse Rate 92 H Respiratory Rate 17 Blood Pressure 168/92 H Pulse Oximetry 98 Oxygen Delivery Method Room Air Medical Decision Making Lab Data 12/22/22 20:52 12/22/22 20:52 Labs: Lab Results 12/22/22 12/22/22 Range/Units 20:52 20:52 WBC 19.6 H (4.5-11.0) X10^3/uL RBC 4.47 L (4.5-5.9) X10^6/uL Hgb 14.5 (13.5-17.5) g/dL Hct 41.8 (41-53) % MCV 93.5 (80-100) fL MCH 32.5 (26-34) PG MCHC 34.8 (30-36) % RDW 14.6 (11.6-14.8) % Plt Count 203 (150-400) X10^3/uL Neut % (Auto) 84.5 H (50-75) % Lymph % (Auto) 10.6 L (25-40) % [place] % (Auto) 4.5 (3-14) % Eos % (Auto) 0.2 L (2-4) % Baso % (Auto) 0.2 (0-2) % Neut # (Auto) 04005 H (8587-4805) /uL Lymph # (Auto) 2100 (6876-4173) /uL [place] # (Auto) 900 (0-900) /uL Eos # (Auto) 0 (0-450) /uL Baso # (Auto) 0 (0-100) /uL Sodium 132 L (137-145) mmol/L Potassium 3.7 (3.4-5.1) mmol/L Chloride 97 L (98-107) mmol/L Carbon Dioxide 21 L (22-32) mmol/L BUN 10 (9-20) mg/dL Creatinine 0.91 (0.66-1.25) mg/dL Estimated GFR > 60 (>60) mL/min BUN/Creatinine Ratio 11.0 (6-22) Glucose 142 H (70-100) mg/dL Calcium 9.2 (8.4-10.2) mg/dL Magnesium 1.4 L (1.6-2.3) mg/dL Total Bilirubin 1.1 (0.2-1.3) mg/dL AST 107 H (17-59) IU/L ALT 124 H (<50) IU/L Alkaline Phosphatase 66 (38-126) U/L Total Protein 7.8 (6.3-8.2) g/dL Albumin 4.2 (3.5-5.0) g/dL Globulin 3.6 (1.7-4.1) g/dL Albumin/Globulin Ratio 1.2 (1.0-2.8) Lipase 79008 H D (23-300) U/L MDM Narrative Medical decision making narrative: [47] year old patient presents with worsening epigastric pain, 2nd visit of the day with alcoholic pancreatitis Prior Charts reviewed in our EMR Primary Historian: patient Labs reviewed and interpreted by myself: Patient continues to have leukocytosis with relative left shift, lipases risen to over 10,000 Imaging reviewed: CT from earlier demonstrates pancreatitis without evidence of pseudocyst or necrosis Consultations: herrera to Dr. Levine (hospitalist) Patient's symptoms improved over duration of stay with above-stated therapies. Patient failed outpatient therapy, will require hospitalization for treatment of his pancreatitis, patient understands and agrees with the diagnosis and plan Discharge Plan Departure Patient Disposition: Admitted As Inpatient Clinical Impression: Pancreatitis Admit Date/Time: 12/22/22 22:05 Admit Provider: Travon So
[2022-12-22] MEDS: PANTOPRAZOLE 40 MG VIAL IV (20:49)
[2022-12-22] MEDS: SODIUM CHLORIDE 0.9% 1,000 ML 1000 ML IV (20:49)
[2022-12-22] MEDS: HYDROMORPHONE 1 MG INJ IV (20:49)
[2022-12-22 21:07] LABS: Add Manual Diff / Slide Review NO; Basophils Absolute Auto 0 /uL (0-100); Basophils Percent Auto 0.2 % (0-2); Eosinophils Absolute Auto 0 /uL (0-450); Eosinophils Percent Auto 0.2 % (2-4); Hematocrit 41.8 % (41-53); Hemoglobin 14.5 g/dL (13.5-17.5); Lymphocytes Absolute Auto 2100 /uL (1100-4500); Lymphocytes Percent Auto 10.6 % (25-40); Mean Corpuscular HGB Conc 34.8 % (30-36); Mean Corpuscular Hemoglobin 32.5 PG (26-34); Mean Corpuscular Volume 93.5 fL (80-100); Monocytes Absolute Auto 900 /uL (0-900); Monocytes Percent Auto 4.5 % (3-14); Neutrophils Absolute Auto 16600 /uL (1500-7000); Neutrophils Percent Auto 84.5 % (50-75); Platelet Count 203 X10^3/uL (150-400); Red Blood Cell Count 4.47 X10^6/uL (4.5-5.9); Red Cell Distribution Width 14.6 % (11.6-14.8); White Blood Cell Count 19.6 X10^3/uL (4.5-11.0)
[2022-12-22 21:09] LABS: Alanine Aminotransferase 124 IU/L (<50); Albumin 4.2 g/dL (3.5-5.0); Albumin Globulin Ratio 1.2 (1.0-2.8); Alkaline Phosphatase 66 U/L (38-126); Aspartate Aminotransferase 107 IU/L (17-59); Bilirubin Total 1.1 mg/dL (0.2-1.3); Blood Urea Nitrogen 10 mg/dL (9-20); Calcium 9.2 mg/dL (8.4-10.2); Carbon Dioxide 21 mmol/L (22-32); Chloride 97 mmol/L (98-107); Estimated Glomerular Filt Rate > 60 mL/min (>60); Globulin 3.6 g/dL (1.7-4.1); Glucose 142 mg/dL (70-100); HEMOLYSIS < 15 (0-50); Magnesium 1.4 mg/dL (1.6-2.3); Potassium 3.7 mmol/L (3.4-5.1); Sodium 132 mmol/L (137-145); Total Protein 7.8 g/dL (6.3-8.2)
[2022-12-22 21:47] LABS: Lipase 11070 U/L (23-300)
--- NOTE | 2022-12-22 22:30 | P.HP_ITS ---
History of Present Illness History of Present Illness Date Patient Seen: 12/22/22 Chief complaint: pancreatitis, states meds not working Narrative: 47 y/o with PMH of alcoholism, presented today for the second time in ED with epigastric pain. He was initially diagnosed with recurrent alcoholic pancreatitis and discharged home but came back unable to tolerate pain and to hold PO. His first alcoholic pancreatitis in our record is from 2 years ago, necrotizing, required abx. Second episode in , not admitted then. 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) Family History Grandmother Age: 57 Breast cancer Social History marital status: unknown household members: significant other Smoking Status: Current every day smoker alcohol intake: current Meds Home Medications and Allergies Home Medications Medication Instructions Recorded Confirmed Type nicotine 14 mg/24 hr daily 14 mg topical QDAYP PRN Smoking 06/16/16 12/22/22 History transdermal patch Cessation ##0 nitroglycerin 0.4 mg sublingual 0.4 mg sublingual Q5M PRN chest 09/03/17 12/22/22 Rx tablet (Nitrostat) pain #30 tabs epinephrine 0.3 mg/0.3 mL 0.3 mg IM X1 PRN Allergic Reaction 12/31/20 12/22/22 History injection, auto-injector (EpiPen 2-Mahendra) lisinopril 5 mg tablet 10 mg PO DAILY 12/31/20 12/22/22 History metoprolol tartrate 50 mg tablet 100 mg PO DAILY 12/31/20 12/22/22 History apixaban 5 mg tablet (Eliquis) 5 mg PO BID 01/03/21 12/22/22 History furosemide 20 mg tablet 20 mg PO DAILY 01/03/21 12/22/22 History rosuvastatin 40 mg tablet 40 mg PO DAILY 01/03/21 12/22/22 History ondansetron 4 mg disintegrating 4 mg PO TID-QID PRN nausea and 05/05/21 12/22/22 Rx tablet vomiting #10 tabs oxycodone 5 mg capsule 5 mg PO Q6H PRN pain #14 caps 12/22/22 12/22/22 Rx Allergies Allergy/AdvReac Type Severity Reaction Status Date / Time codeine [CODEINE] AdvReac Mild ITCHING Verified 12/22/22 20:40 Review of Systems Constitutional Comments: w/o fever, chills or sweats Cardiovascular Comments: w/o palpitations otr chest pain Respiratory Comments: w/o shortness of breath Gastrointestinal Comments: Nausea, epigastric pain Genitourinary Comments: w/o dysuria Musculoskeletal Comments: w/o myalgia / arthralgia Exam Vital Signs (past 8 hours): - 12/22/22 20:37 Temperature 98.6 F Pulse Rate 92 H Respiratory Rate 17 Blood Pressure 168/92 H Pulse Oximetry 98 Oxygen Delivery Method Room Air Oxygen Delivery Method Room Air Narrative Exam Narrative: Laying in bed in no distress Eyes Other: reactive pupils, eomi Neck Other: supple Resp Other: Normal respiratory effort Cardio Other: RRR GI Other: diffuse abdominal tenderness, not distended Skin Other: not jaundiced Neuro Other: w/o focal deficits Objective Labs 12/22/22 20:52 12/22/22 20:52 Labs: Laboratory Results - last 24 hr 12/22/22 12/22/22 20:52 20:52 WBC 19.6 H RBC 4.47 L Hgb 14.5 Hct 41.8 MCV 93.5 MCH 32.5 MCHC 34.8 RDW 14.6 Plt Count 203 Neut % (Auto) 84.5 H Lymph % (Auto) 10.6 L [place] % (Auto) 4.5 Eos % (Auto) 0.2 L Baso % (Auto) 0.2 Neut # (Auto) 52737 H Lymph # (Auto) 2100 [place] # (Auto) 900 Eos # (Auto) 0 Baso # (Auto) 0 Sodium 132 L Potassium 3.7 Chloride 97 L Carbon Dioxide 21 L BUN 10 Creatinine 0.91 Estimated GFR > 60 BUN/Creatinine Ratio 11.0 Glucose 142 H Calcium 9.2 Magnesium 1.4 L Total Bilirubin 1.1 AST 107 H ALT 124 H Alkaline Phosphatase 66 Total Protein 7.8 Albumin 4.2 Globulin 3.6 Albumin/Globulin Ratio 1.2 Lipase 01659 H D Assessment & Plan Assessment and plan (1) Acute recurrent pancreatitis: Status: Acute Plan: 3rd episode since 12/2020, 2nd in 04/2021 - needs bowel rest - npo, clear liquid attempt tomorrow - antiemetic, pain management - abstinence from elcohol (2) Alcohol use disorder: Status: Acute Plan: causing recurrent pancreatitis and likely mild alcoholic hepatitis (3) Tobacco abuse: Status: Acute Plan: nicotine patch (4) Coronary artery disease involving [place] coronary artery of [place] heart without angina pectoris: Problem details: STEMI 2017, STENT placed [facility] Status: Acute Plan: Hx of STEMI in 2017, s/p PCI for occluded RCA - w/o angina, statin, (5) Hypomagnesemia: Status: Acute Plan: supplementing (6) Alcoholism: Status: Acute Plan: needs counseling (7) Hx of pulmonary embolus: Status: Acute Plan: [place]
[2022-12-22] MEDS: HYDROMORPHONE 0.5 MG INJ 1 MG IV (23:24)
[2022-12-22] MEDS: SODIUM CHLORIDE 0.9% 1,000 ML 200 ML IV (23:31)
[2022-12-22] MEDS: MAGNESIUM SULFATE 2 GM/50 ML PIGGYBACK IV (23:31)
[2022-12-22] MEDS: ONDANSETRON 4 MG/2 ML INJ IV (23:36)
--- NOTE | 2022-12-23 00:51 | PC.ADMIT ---
[email or web address] [address] [place] [address] Admission Note: The patient,Joshua Huston,47 y/o, was given written information regarding hospital policies, unit procedures and contact persons. Patient's smoking status: Current every day smoker. Vital Signs - 8 hr 12/22/22 20:37 12/22/22 20:42 12/22/22 21:00 Temperature 98.6 F Pulse Rate 92 H 93 H 92 H Respiratory Rate 17 20 Blood Pressure 168/92 H 162/96 H Pulse Oximetry 98 96 88 L Oxygen Delivery Method Room Air 12/22/22 21:30 12/22/22 22:00 12/22/22 22:30 Temperature Pulse Rate 94 H 91 H 89 Respiratory Rate 18 18 16 Blood Pressure 168/92 H Pulse Oximetry 96 94 95 Oxygen Delivery Method 12/22/22 22:47 Temperature 98 F Pulse Rate Respiratory Rate Blood Pressure Pulse Oximetry Oxygen Delivery Method Room Air Pt placed in room, call light w/i reach. Pt acknowledged all hospital policies and has no questions at this time.
[2022-12-23] MEDS: ONDANSETRON 4 MG/2 ML INJ IV ×7 (01:27→20:20)
[2022-12-23] MEDS: HYDROMORPHONE 0.5 MG INJ 1 MG IV ×5 (01:28→14:07)
[2022-12-23 01:38] VITALS: BP 159/92; PULSE 92; RESP 20; TEMP 36.6; O2SAT 94
[2022-12-23 05:38] VITALS: BP 152/90; PULSE 92; RESP 20; O2SAT 93
[2022-12-23] MEDS: SODIUM CHLORIDE 0.9% 1,000 ML 200 ML IV ×2 (05:56→15:00)
[2022-12-23] MEDS: PANTOPRAZOLE DR 20 MG TABLET PO (06:54)
[2022-12-23 08:48] LABS: Add Manual Diff / Slide Review NO; Basophils Absolute Auto 100 /uL (0-100); Basophils Percent Auto 0.3 % (0-2); Eosinophils Absolute Auto 200 /uL (0-450); Eosinophils Percent Auto 0.9 % (2-4); Hematocrit 39.9 % (41-53); Hemoglobin 13.8 g/dL (13.5-17.5); Lymphocytes Absolute Auto 1500 /uL (1100-4500); Lymphocytes Percent Auto 7.3 % (25-40); Mean Corpuscular HGB Conc 34.5 % (30-36); Mean Corpuscular Hemoglobin 32.1 PG (26-34); Monocytes Absolute Auto 1200 /uL (0-900); Monocytes Percent Auto 5.8 % (3-14); Neutrophils Absolute Auto 18200 /uL (1500-7000); Neutrophils Percent Auto 85.7 % (50-75); Platelet Count 208 X10^3/uL (150-400); Red Blood Cell Count 4.29 X10^6/uL (4.5-5.9); Red Cell Distribution Width 14.6 % (11.6-14.8); White Blood Cell Count 21.2 X10^3/uL (4.5-11.0)
[2022-12-23] MEDS: APIXABAN 5 MG TABLET PO ×2 (08:51→20:26)
[2022-12-23 09:00] VITALS: BP 140/90; PULSE 89; RESP 18; O2SAT 95
[2022-12-23 09:05] LABS: Alanine Aminotransferase 97 IU/L (<50); Albumin 3.9 g/dL (3.5-5.0); Albumin Globulin Ratio 1.2 (1.0-2.8); Alkaline Phosphatase 55 U/L (38-126); Aspartate Aminotransferase 75 IU/L (17-59); BUN Creatinine Ratio 8.5 (6-22); Blood Urea Nitrogen 7 mg/dL (9-20); Calcium 8.8 mg/dL (8.4-10.2); Carbon Dioxide 21 mmol/L (22-32); Chloride 101 mmol/L (98-107); Estimated Glomerular Filt Rate > 60 mL/min (>60); Globulin 3.3 g/dL (1.7-4.1); Glucose 120 mg/dL (70-100); HEMOLYSIS < 15 (0-50); Potassium 3.6 mmol/L (3.4-5.1); Sodium 130 mmol/L (137-145); Total Protein 7.2 g/dL (6.3-8.2)
--- NOTE | 2022-12-23 09:30 | DI.US.S_ITS ---
PROCEDURE: US ABDOMEN LIMITED INDICATIONS: PANCREATITIS ON CT. R/O PSEUDOCYST AND DUCT DILATION. TECHNIQUE: Real-time focused scanning was performed of the abdomen, with image documentation. COMPARISON: [facility], CT, CT ABDOMEN PELVIS W CON, 12/22/2022, 11:22. [facility], US, US ABDOMEN LIMITED, 01/20/2021, 20:12. FINDINGS: The liver is prominently echogenic and mildly enlarged, measuring up to 18.8 cm craniocaudad. The spleen is not identified and on review of the prior CT scan from 1 day ago appears absent. A small very small amount of adjacent pericholecystic free fluid is present, but the gallbladder wall is normal in thickness at 2.7 mm and no gallstones are seen. The free fluid is not an unexpected finding considering the presence of immediately adjacent severe pancreatitis seen on CT scanning. Bile ducts and pancreas are poorly visualized predominantly due to body habitus, overlying hyperechoic liver parenchyma, and also adjacent bowel gas. IMPRESSION: Limited study as discussed, no gallstones or gallbladder wall thickening is seen. The slight amount of adjacent free fluid is an expected finding in the setting of adjacent prominent pancreatitis. Hepatomegaly and diffuse fatty infiltration throughout the liver. Dictated by: Isai Foster M.D. on 12/23/2022 at 16:24 Approved by: Isai Foster M.D. on 12/23/2022 at 16:28
--- NOTE | 2022-12-23 09:33 | DI.RAD.S_ITS ---
PROCEDURE: XR CHEST 1V INDICATIONS: leukocytosis TECHNIQUE: One view of the chest was acquired. COMPARISON: [facility], CR, XR CHEST 1V, 09/05/2019, 4:08. FINDINGS: Surgical changes and devices: None. Lungs and pleura: Low lung volumes and. Carotid bronchovascular markings. Bilateral perihilar bronchial wall thickening. No dense consolidation, effusion, pneumothorax. Mediastinum: Normal heart size. Mediastinal contour extension weighted by low lung volumes. Bones and chest wall: No suspicious bony lesions. Overlying soft tissues appear unremarkable. IMPRESSION: 1. Low lung volumes crowded bronchovascular markings, however there is bronchial wall thickening suggesting bronchitis. Correlate clinically. Dictated by: Charo Goode M.D. on 12/23/2022 at 10:17 Approved by: Charo Goode M.D. on 12/23/2022 at 10:18
--- NOTE | 2022-12-23 09:34 | P.PN_ITS ---
Subjective Subjective Interval history: Abd pain improved today. Says oxy makes him feel weird. He is ok trying hydrocodone instead. Abd US shows no pseudocyst or biliary dilation. Fatty liver present. Patient tolerating water ok. Exam Vital Signs (past 8 hours): - 12/23/22 01:38 12/23/22 05:38 12/23/22 09:00 Temperature 97.8 F Pulse Rate 92 H 92 H 89 Respiratory Rate 20 20 18 Blood Pressure 159/92 H 152/90 H 140/90 Pulse Oximetry 94 93 95 Oxygen Flow Rate 0 0 0 Oxygen Delivery Method Room Air Oxygen Flow Rate 0 Narrative Exam Narrative: Laying in bed in no distress Eyes Other: reactive pupils, eomi Neck Other: supple Resp Other: Normal respiratory effort Cardio Other: RRR GI Other: diffuse abdominal tenderness, not distended Skin Other: not jaundiced Neuro Other: w/o focal deficits Objective Labs 12/23/22 08:40 12/23/22 08:40 Labs: Laboratory Results - last 24 hr 12/22/22 12/22/22 12/23/22 20:52 20:52 08:40 WBC 19.6 H 21.2 H RBC 4.47 L 4.29 L Hgb 14.5 13.8 Hct 41.8 39.9 L MCV 93.5 93.0 MCH 32.5 32.1 MCHC 34.8 34.5 RDW 14.6 14.6 Plt Count 203 208 Neut % (Auto) 84.5 H 85.7 H Lymph % (Auto) 10.6 L 7.3 L [place] % (Auto) 4.5 5.8 Eos % (Auto) 0.2 L 0.9 L Baso % (Auto) 0.2 0.3 Neut # (Auto) 60392 H 60227 H Lymph # (Auto) 2100 1500 [place] # (Auto) 900 1200 H Eos # (Auto) 0 200 Baso # (Auto) 0 100 Sodium 132 L Potassium 3.7 Chloride 97 L Carbon Dioxide 21 L BUN 10 Creatinine 0.91 Estimated GFR > 60 BUN/Creatinine Ratio 11.0 Glucose 142 H Calcium 9.2 Magnesium 1.4 L Total Bilirubin 1.1 AST 107 H ALT 124 H Alkaline Phosphatase 66 Total Protein 7.8 Albumin 4.2 Globulin 3.6 Albumin/Globulin Ratio 1.2 Lipase 23912 H D 12/23/22 08:40 WBC RBC Hgb Hct MCV MCH MCHC RDW Plt Count Neut % (Auto) Lymph % (Auto) [place] % (Auto) Eos % (Auto) Baso % (Auto) Neut # (Auto) Lymph # (Auto) [place] # (Auto) Eos # (Auto) Baso # (Auto) Sodium 130 L Potassium 3.6 Chloride 101 Carbon Dioxide 21 L BUN 7 L Creatinine 0.82 Estimated GFR > 60 BUN/Creatinine Ratio 8.5 Glucose 120 H Calcium 8.8 Magnesium Total Bilirubin 1.0 AST 75 H ALT 97 H Alkaline Phosphatase 55 Total Protein 7.2 Albumin 3.9 Globulin 3.3 Albumin/Globulin Ratio 1.2 [facility] Medical History (Updated 12/22/22 @ 23:33 by Travon So MD) Acute bronchitis Acute [place] Alcohol use disorder Bilateral otitis media Coronary artery disease involving [place] coronary artery of [place] heart without angina pectoris (06/16/16) Cough due to bronchospasm Excessive daytime sleepiness (06/16/16) History of alcohol abuse History of myocardial infarction (06/16/16) Hypertension Nocturnal hypoxia (06/16/16) Tobacco abuse Surgical History History of intestinal surgery 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) Family History Grandmother Age: 57 Breast cancer Social History marital status: unknown household members: significant other Smoking Status: Current every day smoker alcohol intake: current Assessment & Plan Assessment and plan (1) Acute recurrent pancreatitis: Status: Acute Plan: 3rd episode since 12/2020, 2nd in 04/2021 - initially with bowel rest, now on clear liquid diet - antiemetic, pain management - abstinence from alcohol recommended - continue IVF - abd US with only fatty liver, no pseudocyst or biliary dilation (2) Alcohol use disorder: Status: Acute Plan: causing recurrent pancreatitis and likely mild alcoholic hepatitis (3) Tobacco abuse: Status: Acute Plan: nicotine patch (4) Coronary artery disease involving [place] coronary artery of [place] heart without angina pectoris: Problem details: STEMI 2017, STENT placed [facility] Status: Acute Plan: Hx of STEMI in 2017, s/p PCI for occluded RCA - w/o angina, holding statin due to elevated LFT's (5) Hypomagnesemia: Status: Acute Plan: supplementing (6) Alcoholism: Status: Acute Plan: needs counseling CERTIFICATION AND SELECTION SPECIALIST consulted (7) Hx of pulmonary embolus: Status: Acute Plan: Eliquis Plan Dispo: Home once advancing diet in 1-2 days. Quality VTE Deep Vein Thrombosis/Pulmonary Embolism Present on Admission: No
[2022-12-23] MEDS: METOPROLOL IR 50 MG TABLET 100 MG PO ×2 (10:45→20:26)
[2022-12-23] MEDS: OXYCODONE IR 10 MG TABLET PO (10:51)
[2022-12-23 11:00] VITALS: BP 147/85; PULSE 86; RESP 18; TEMP 36.4; O2SAT 93
[2022-12-23] MEDS: MULTIVITAMIN 1 TABLET 1 TAB PO (12:19)
[2022-12-23] MEDS: FOLIC ACID 1 MG TABLET PO (12:19)
[2022-12-23] MEDS: THIAMINE 100 MG TABLET PO (12:19)
--- NOTE | 2022-12-23 15:07 | CM.DANOTE ---
Initial DCP Assessment/ ZION Assessment Met w/patient to complete initial DCP assessment and ZION assessment. Patient admitted for management of acute alcoholic pancreatitis. Patient lives w/ SO adri Diaz in all aspects, works part time for [employer]. Patient currently drinks every other day approx 3-4 hard alcoholic drinks. SO Emily is a real estate developer and drinks occasionally. Patient denies that his alcohol consumption has an ill effect on his life but does admits that it is effecting his health negatively. Patient asks this INSTRUMENT/CONTROL TECHNICIAN to repeat questions often throughout this conversation, affect is blunted, unsure if patient is processing slowly or truly does not understand what is being asked of him. Patient admits to multiple and recent deaths in his close family which triggered his relapse after 8 months of sobriety. Patient plans to remain sober upon discharge. Patient denies needs or resources from this INSTRUMENT/CONTROL TECHNICIAN. No barriers identified to return home w/SO. Plan: Discharge home anticipated, private auto. RAJ Hart Discharge Planning/Initial Assessment CM Discharge Assessment Start: 12/23/22 14:54 Freq: Status: Active Protocol: Document 12/23/22 14:54 AWNG (Rec: 12/23/22 14:56 [id number]) Discharge Planning Assessment Assigned Traffic Engineer RAJ Arrington DPOA/Assigned Designee Name KODY Jones Contact Information [phone] Advance Directives? No History Provided By Patient,Medical Record Prior Living Arrangements House Household Members significant other Type of transporation used prior to Drives own vehicle admit Independent with ADL's Yes Is patient alert and oriented? Yes Barriers to Discharge No Discharge Plan Home Transportation Arrangement SO Referrals Initiated None needed Additional Comment At this time Whiteboard Updated in Patient Room with Yes name and ext. # of Traffic Engineer Comment Goal for discharge - home w/SO , denies need for ZION resources. Expected day of discharge is 10 INSTRUMENT/CONTROL TECHNICIAN/ ZION Assessment INSTRUMENT/CONTROL TECHNICIAN - Parking Lot Chauffeur Assessment Start: 12/23/22 14:57 Freq: Status: Active Protocol: Document 12/23/22 14:57 WANG (Rec: 12/23/22 15:07 [id number]) INSTRUMENT/CONTROL TECHNICIAN/Parking Lot Chauffeur Assessment Presenting Problem 47 yo M heavy alcohol use, presents with recurrent alcoholic pancreatitis Precipitating Event(s) Partying in [place] Patient Strengths Employed part time, secure housing and secure access to basic needs. States he knows how to talk with friends and family for support Current Behavioral Health Provider(s) none Include Facility, Provider, Ph. # Family Hx of Behavioral Abuse Did not assess Rehab Facilities? ((Date(s), Location(s) None ) History of Withdrawal? Seizures? Did not assess Longest Period of Sobriety 8 months after last pancreatitis attack Psychosocial information & Support Lives with KODY Diaz, has Systems supportive family and friends School/Work Works for [employer] part time Legal Matters - Outstanding Issues Did not assess Orientation (Person/Place/Time) Oriented Stated Mood Did not assess Affect (Congruent with Mood?) Blunted Thought Content - Specify/Describe None Obsessions, Delusions, Hallucinations Thought Processes (Lmylial-Kogxngbv-Alno Logical however INSTRUMENT/CONTROL TECHNICIAN had to Iccvjeln-Vperqkos-Soxjftqhoc- repeat questions often, Ljtjpccgswjuwq-Slxfvxs-Uorbvcqcfttj- patient did not seem to Thought Blocking) understand the line of questioning about his drinking Speech (Geqqlp-Anny-Wcsceni-Rapid-Soft- Normal Loud-Pressured) Motor (Clhpkw-Fjniohhwt-Zutr-Other) Normal Insight (Yals-Igzk-Rhyx/Limited) Poor Judgement (Iseh-Kpbt-Sunc/Limited) Poor Impulse Control (Adequate-Impaired) Impaired Memory (Wswgxjoeb-Suroks-Qrngyr, Impaired Impaired-Intact) Concentration (Intact-Impaired) Intact Attention (Intact-Impaired) Impaired Behavior (Appropriate-Inappropriate) Appropriate Additional Comment See narrative Comment Did not assess Intervention Discussed patient's drinking and patient denies there being a problem, except for this stuff (alcoholic pancreatitis) . Attempted to draw patient's attention to the severity of his drinking both on his health and quality of life and ability to cope with hard things, patient denies need for reosurces at this time. RA Plan Home w/SO. Patient plans on being sober by will power and support from family and friends.
[2022-12-23 15:35] LABS: Appearance Urine UA SL CLOUDY; Bilirubin Urine UA 1+ (NEGATIVE); Color Urine UA YELLOW; Glucose Urine UA 2+ g/dL (Negative); Ketones Urine UA 2+ (NEGATIVE); Leukocyte Esterase Urine UA NEGATIVE (NEGATIVE); Nitrite Urine UA NEGATIVE (Negative); Occult Blood Urine UA 1+ (Negative); Protein Urine UA 2+ (Negative); Specific Gravity Urine UA >=1.030 (1.000-1.035)
[2022-12-23 15:49] LABS: Bacteria Urine Occasional (0-1); Culture Indicated Urine Cult Not Indicated; Hyaline Casts Urine 0-1/LPF; Ictotest Urine Negative (Negative); RBC Urine 0-1/HPF (0-5/HPF); Squamous Epithelial Cell Urine 0-1 /HPF (0-5/HPF); WBC Urine 5-10/HPF (0-5/HPF)
[2022-12-23 16:00] VITALS: BP 159/92; PULSE 91; RESP 18; TEMP 36.7; O2SAT 95
[2022-12-23] MEDS: HYDROCODONE/ACET 10/325 TABLET 1 TAB PO ×2 (17:38→21:55)
[2022-12-23 19:40] VITALS: BP 149/90; PULSE 82; RESP 20; TEMP 36.7; O2SAT 93
[2022-12-24 00:15] VITALS: BP 142/83; PULSE 81; RESP 18; TEMP 36.1; O2SAT 93
[2022-12-24] MEDS: HYDROCODONE/ACET 10/325 TABLET 1 TAB PO ×3 (01:56→10:30)
[2022-12-24] MEDS: ONDANSETRON 4 MG/2 ML INJ IV ×3 (01:56→05:55)
[2022-12-24 04:10] VITALS: BP 144/83; PULSE 75; RESP 18; TEMP 36.4; O2SAT 93
[2022-12-24] MEDS: SODIUM CHLORIDE 0.9% 1,000 ML 150 ML IV (05:27)
[2022-12-24] MEDS: PANTOPRAZOLE DR 20 MG TABLET PO (06:48)
[2022-12-24 08:00] VITALS: BP 155/103; PULSE 86; RESP 17; TEMP 36.2; O2SAT 94
[2022-12-24 08:46] VITALS: BP 155/103; PULSE 86
[2022-12-24] MEDS: APIXABAN 5 MG TABLET PO (08:46)
[2022-12-24] MEDS: METOPROLOL IR 50 MG TABLET 100 MG PO (08:46)
[2022-12-24] MEDS: lisinopriL 5 MG TABLET 10 MG PO (08:46)
[2022-12-24] MEDS: THIAMINE 100 MG TABLET PO (08:46)
[2022-12-24] MEDS: MULTIVITAMIN 1 TABLET 1 TAB PO (08:46)
[2022-12-24] MEDS: FOLIC ACID 1 MG TABLET PO (08:46)
--- NOTE | 2022-12-24 12:44 | CM.DPC ---
DCP Cont: Discussed patient during team rounds. Stated that patient will be on soft diet, could potentially discharge today, if not, tomorrow. Notes indicate that patient has declined ETOH resources. P: DCP to continue to follow for needs. Plan is home when deemed medically stable. Lary Deras RN/Care Taker
--- NOTE | 2022-12-24 13:26 | P.DS_ITS ---
History of Present Illness History of Present Illness Date Patient Seen: 12/22/22 Chief complaint: pancreatitis, states meds not working Narrative: 47 y/o with PMH of alcoholism, presented today for the second time in ED with epigastric pain. He was initially diagnosed with recurrent alcoholic pancreatitis and discharged home but came back unable to tolerate pain and to hold PO. His first alcoholic pancreatitis in our record is from 2 years ago, necrotizing, required abx. Second episode in , not admitted then. Discharge Providers Provider Date of admission: 12/22/22 22:05 Discharge Date: 12/24/22 Primary care physician: Ulises Weaver MD Consults: 12/23/22 10:53 Consult to Dietitian, Adult Routine Comment: Reason For Exam: alcoholism 12/23/22 10:54 Consult to RETAIL SHIFT SUPERVISOR - Bearing Grinder Routine Comment: alcoholism Discharge provider: Harley Bundy, DO Summary Hospital Course Discharge Diagnosis: (1) Acute recurrent pancreatitis: ?Status:?Acute ?Plan: 3rd episode since 12/2020, 2nd in 04/2021 - initially with bowel rest, now on clear liquid diet - antiemetic, pain management - abstinence from alcohol recommended - continue IVF - abd US with only fatty liver, no pseudocyst or biliary dilation (2) Alcohol use disorder: ?Status:?Acute ?Plan: causing recurrent pancreatitis and likely mild alcoholic hepatitis (3) Tobacco abuse: ?Status:?Acute ?Plan: nicotine patch (4) Coronary artery disease involving [place] coronary artery of [place] heart without angina pectoris: ?Problem details: STEMI 2017, STENT placed [facility] ?Status:?Acute ?Plan: Hx of STEMI in 2017, s/p PCI for occluded RCA - w/o angina, holding statin due to elevated LFT's (5) Hypomagnesemia: ?Status:?Acute ?Plan: supplementing (6) Alcoholism: ?Status:?Acute ?Plan: needs counseling RETAIL SHIFT SUPERVISOR consulted (7) Hx of pulmonary embolus: ?Status:?Acute ?Plan: Eliquis Mild hyponatremia -Na 130 down from 132 in admission -likely due to SIADH -monitor Hospital Course: Admitted for alcoholic pancreatitis. Improved with IVF, pain meds and advanced diet slowly. Able to tolerate po and discharged with hydrocodone as oxy made him whoozy. He wasn't interested in alcohol cessation resources. Exam Vital Signs (past 8 hours): - 12/24/22 08:00 12/24/22 08:46 12/24/22 08:00 Temperature 97.1 F L Pulse Rate 86 86 Respiratory Rate 17 Blood Pressure 155/103 H 155/103 H Pulse Oximetry 94 Oxygen Delivery Method Room Air Oxygen Flow Rate 0 Oxygen Delivery Method Room Air Oxygen Flow Rate 0 Narrative Exam Narrative: Laying in bed in no distress Eyes Other: reactive pupils, eomi Neck Other: supple Resp Other: Normal respiratory effort Cardio Other: RRR GI Other: diffuse abdominal tenderness improving, not distended Skin Other: not jaundiced Neuro Other: w/o focal deficits Objective Labs 12/23/22 08:40 12/23/22 08:40 Labs: Laboratory Results - last 24 hr 12/23/22 14:00 Urine Color Yellow Urine Appearance Sl cloudy Urine pH 6.0 Ur Specific [place] >=1.030 H Urine Protein 2+ H Urine Glucose (UA) 2+ H Urine Ketones 2+ H Urine Occult Blood 1+ H Urine Nitrate Negative Urine Bilirubin 1+ H Ur Bilirubin Confirm Negative Urine Urobilinogen 1.0 Ur Leukocyte Esterase Negative Urine RBC 0-1/hpf Urine WBC 5-10/hpf H Ur Squamous Epith Cells 0-1 /hpf Urine Bacteria Occasional (0-1) Hyaline Casts 0-1/lpf Ur Culture Indicated? 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 I would stop drinking alcohol, or your pancreatitis may return and you will need to be hospitalized again in the future. If you have too many episodes of pancreatitis, you can develop chronic pancreatitis which I wouldn't wish on my worst enemy. Imagine constant abd pain all the time. Discharge orders & Medications Prescriptions: New hydrocodone-acetaminophen 5-325 mg tablet 1 tab PO Q4-6H PRN (Reason: pain) Qty: 30 0RF Continued nicotine 14 MG patch 24 hour 14 mg Topical QDAYP PRN (Reason: Smoking Cessation) Qty: 0 nitroglycerin [Nitrostat] 0.4 mg tablet, sublingual 0.4 mg Sublingual Q5M PRN (Reason: chest pain) Qty: 30 2RF metoprolol tartrate 50 mg tablet 100 mg PO DAILY lisinopril 5 MG tablet 10 mg PO DAILY epinephrine [EpiPen 2-Mahendra] 0.3 MG/0.3 ML auto-injector 0.3 mg IM X1 PRN (Reason: Allergic Reaction) rosuvastatin 40 mg tablet 40 mg PO DAILY Eliquis 5 mg tablet 5 mg PO BID furosemide 20 mg tablet 20 mg PO DAILY ondansetron 4 mg tablet,disintegrating 4 mg PO TID-QID PRN (Reason: nausea and vomiting) Qty: 10 0RF Discontinued oxycodone 5 mg capsule 5 mg PO Q6H PRN (Reason: pain) Qty: 14 0RF Follow up/Referrals: Ulises Weaver MD [Primary Care Provider] - 2 Weeks Visit Report/Discharge Packet Instructions: DI for Pancreatitis Stand Alone Forms: Patient Portal/API, Stroke Signs & Symptoms Discharge Data Primary Care Provider: Ulises Weaver Discharges patient from system. Discharge Date/Time: 12/24/22 13:40 Quality VTE Deep Vein Thrombosis/Pulmonary Embolism Present on Admission: No
[2022-12-24] MEDS: SIMETHICONE 80 MG TABLET PO (13:27)
[2022-12-24] MEDS: polyethylene glycoL 3350 17 GM POWD.PACK PO (13:27)
--- NOTE | 2022-12-24 13:58 | PC.NURSE ---
Discharge: Pt A&Ox4, tolerated a regular diet at lunch. Discharge education provided to pt, pt verbalized understanding. Pt provided education on over the counter stool softeners for constipation, pt verbalized understanding. IV discontinued, belongings given to pt. Pt ambulated with this RN to private vehicle at approximately 1340.
== END 2022-12-24 13:40 | disposition home or self-care (01) | DRG 439 ==
LOC: ED 21:53 → AC 22:06
PROVIDERS: Student in an Organized Health Care Education/Training Program; Admitting Provider Internal Medicine; Emergency Provider Emergency Medicine; PCP Family Medicine; Referring Provider Emergency Medicine; Visit Provider Internal Medicine
DX: K85.20 Alcohol induced acute pancreatitis without necrosis or infection (principal); E22.2 Syndrome of inappropriate secretion of antidiuretic hormone; K70.10 Alcoholic hepatitis without ascites; I25.10 Atherosclerotic heart disease of native coronary artery without angina pectoris; E83.42 Hypomagnesemia; F17.210 Nicotine dependence, cigarettes, uncomplicated; I10 Essential (primary) hypertension; F10.20 Alcohol dependence, uncomplicated; I25.2 Old myocardial infarction; Z95.5 Presence of coronary angioplasty implant and graft; Z79.01 Long term (current) use of anticoagulants; Z86.711 Personal history of pulmonary embolism; K85.90 Acute pancreatitis without necrosis or infection, unspecified; R74.8 Abnormal levels of other serum enzymes; R10.13 Epigastric pain; E66.01 Morbid (severe) obesity due to excess calories; Z72.0 Tobacco use
CPT/HCPCS: 36415; 71045; 74177; 76705; 80053; 81001; 81003; 83690; 83735; 85025; 85610; 96374; 96375; 99284; C9113; J1170; J2270; J2405; J3475; Q9967

== ENCOUNTER → 2024-07-03 11:47 | Outpatient (CLI) | payer BC, SELFPAY ==
[2022-12-22 23:01] VITALS: BMI 43.0
== END ==
LOC: LAB 11:48
PROVIDERS: PCP Family Medicine; Visit Provider Registered Nurse
DX: J02.9 Acute pharyngitis, unspecified (principal)
CPT/HCPCS: 87070